=== PATIENT | male | born 1945 | race Caucasian/White ===

== ENCOUNTER → 2017-06-07 | Outpatient (CLI) | payer MEDICARE, OTHER ==
--- NOTE | 2017-06-07 13:46 | MR ---
EXAMINATION TYPE: MR shoulder LT wo con DATE OF EXAM: 06/07/2017 COMPARISON: Outside left shoulder x-ray from earlier today HISTORY: Pain in left shoulder for years. TECHNIQUE: Multiplanar, multisequence imaging of the left shoulder is performed without contrast. FINDINGS: Rotator Cuff: The supraspinatus and infraspinatus tendons are both intact to humeral head attachment. There is no evidence of suspicious partial or full-thickness retracted tear. Rotator cuff muscle bul k is preserved. Subscapularis tendon is felt intact. Acromioclavicular Joint: There is marked joint space loss and capsular hypertrophy with mild spurring . There is loss inferior fat plane at this level. Distal acromion morphology is unremarkable. Glenohumeral Joint: There is small glenohumeral joint effusion. Moderate joint space loss is seen. Labrum: Degenerative increased signal superior labrum is present. There is subchondral cystic change in adjacent superior glenoid. Biceps Tendon: The long head of biceps is in normal location within bicipital groove. Intra-articular portion is not well visualized Bone marrow signal: There is additional subchondral cystic change in the anterior and inferior osseou s glenoid. Mild subchondral cystic change superior posterior femoral head is present. Other: No additional significant abnormality is appreciated. IMPRESSION: 1. No suspicious rotator cuff tear is seen. 2. Moderate to advanced glenohumeral and acromioclavicular joint degenerative changes with suspected underlying impingement. Correlate clinically.
== END ==
LOC: RADMRIMAIN 12:30
PROVIDERS: ATTEND Orthopaedic Surgery
DX: M25.512 Pain in left shoulder (principal)

== ENCOUNTER → 2018-11-11 | Outpatient (CLI) | payer MEDICARE ==
--- NOTE | 2018-11-11 16:21 | XR ---
EXAMINATION TYPE: XR chest 2V DATE OF EXAM: 11/11/2018 COMPARISON: 07/20/2011 INDICATION: Cough TECHNIQUE: Frontal and lateral views of the chest are obtained. FINDINGS: The heart size is normal. The pulmonary vasculature is normal. A few punctate nodules may be within the right midlung. These were present previously and could be gr anuloma. No enlarging masses are evident.. IMPRESSION: 1. No acute pulmonary process.
== END | disposition home or self-care (01) ==
LOC: RADXRMAIN 15:04
PROVIDERS: ATTEND Internal Medicine Geriatric Medicine
DX: R05 Cough (principal)
CPT/HCPCS: 71046

== ENCOUNTER → 2019-11-23 | Outpatient (CLI) | payer MEDICARE ==
--- NOTE | 2019-11-23 12:01 | ECHOS ---
STRESS ECHOCARDIOGRAM INDICATIONS: Chest pain. MEDICATIONS: Crestor, aspirin, Xanax, omeprazole. BASELINE HEART RATE: 78 BASELINE BLOOD PRESSURE: 124/76 MAXIMUM HEART RATE: 141 MAXIMUM BLOOD PRESSURE: 183/69 85% MPHR: 122 100% MPHR: 144 METS: 8.3 MAXIMUM STAGE REACHED: 2 TOTAL EXERCISE TIME: 7:00 CLINICAL INFORMATION: Baseline rhythm is sinus mechanism, rate 78, normal axis and intervals. Normal echocardiogram. Baseline blood pressure 124/76 mmHg. Patient exercised on Claus protocol for 7 minutes, reaching peak rate of 141 beats per minute which is equal to 98% maximum predicted heart rate. Peak blood pressure 183/69 mmHg. Test was terminated due to fatigue. There was no chest pain. Electrocardiograph monitoring revealed occasional single PVCs. There was a [address]-segment depression at peak exercise that improved in recovery. FINDINGS: Baseline echocardiogram revealed normal wall motion. At peak exercise, there was normal wall motion augmentation with no hypokinesis or dyskinesis. CONCLUSION: 1. Good exercise tolerance with occasional PVCs and mildly positive electrocardiograph stress testing. 2. Normal stress echocardiogram with no evidence of stress-induced ischemia. MMODL / IJN: [id number] /
== END | disposition home or self-care (01) ==
LOC: RADNMMAIN 09:46
PROVIDERS: ATTEND Internal Medicine Geriatric Medicine
DX: R07.9 Chest pain, unspecified (principal)
CPT/HCPCS: 93351

== ENCOUNTER → 2020-12-06 | Outpatient (CLI) | payer MEDICARE ==
--- NOTE | 2020-12-07 08:47 | ECHOF ---
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 This was a technically adequate study. The left ventricular size is normal. There is borderline concentric left ventricular hypertrophy. Overall left ventricular systolic function is normal with, an EF between 55 - 60 %. The diastolic filling pattern is normal for the age of the patient 11.04. The right ventricle is mildly enlarged. LA is midly dilated 29-33ml/m2. The right atrial size is normal. Interatrial and interventricular septum intact. The aortic valve is trileaflet and appears structurally normal. There is no evidence of aortic regu rgitation. There is no evidence of aortic stenosis. There is trace to mild mitral regurgitation. Mild tricuspid regurgitation present. There is no evidence of pulmonary hypertension. The right v entricular systolic pressure, as measured by Doppler, is 35.32mmHg. Trace/mild (physiologic) pulmonic regurgitation. The aortic root size is normal. Normal inferior vena cava with normal inspiratory collapse consistent with estimated right atrial pre ssure of 5 mmHg. There is no pericardial effusion. CONCLUSIONS -------- 1. The left ventricular size is normal. 2. There is borderline concentric left ventricular hypertrophy. 3. Overall left ventricular systolic function is normal with, an EF between 55 - 60 %. 4. The diastolic filling pattern is normal for the age of the patient 11.04 5. The right ventricle is mildly enlarged. 6. LA is midly dilated 29-33ml/m2. 7. There is trace to mild mitral regurgitation. 8. Mild tricuspid regurgitation present. 9. Trace/mild (physiologic) pulmonic regurgitation. CHEF & OWNER: Kristal Rendon RDCS
== END | disposition home or self-care (01) ==
LOC: RADECHMAIN 14:46
PROVIDERS: ATTEND Internal Medicine Geriatric Medicine
DX: I51.7 Cardiomegaly (principal); I34.0 Nonrheumatic mitral (valve) insufficiency; I37.1 Nonrheumatic pulmonary valve insufficiency
CPT/HCPCS: 93306

== ENCOUNTER → 2021-01-04 | Outpatient (CLI) | payer MEDICARE ==
--- NOTE | 2021-01-04 15:19 | NM ---
EXAMINATION TYPE: NM bone scan whole body DATE OF EXAM: 01/04/2021 COMPARISON: NONE HISTORY: 75-year-old male M54.5 M54.6 M41.24 M47.814 ratio with back pain since October. History of left lower quadrant abdominal liposarcoma. TECHNIQUE: Delayed whole-body scanning was performed following the injection of 23 mCi Tc 99m MDP. I mages acquired 3.5 hours post injection. FINDINGS: Abnormal band of increased activity involving a midthoracic vertebral body as well as T12 vertebral b winnie. Faint band of increased activity involving the T10 vertebral body. Focal increased activity involving a lower right anterior rib end. No other abnormal activity seen. IMPRESSION: 1. Bandlike increased activity involving a mid thoracic vertebral body, T12 vertebral body, and likel y T10 as well. Findings suggest thoracic vertebral compression fractures. These may be posttraumatic or osteoporotic compressions. Given patient's history of sarcoma, correlate to exclude pathologic com pressions. 2. Focal increased activity involving a lower right anterior rib end. Query any injury in this region . Metastatic disease not excluded at this time.
== END | disposition home or self-care (01) ==
LOC: RADNMMAIN 10:24
PROVIDERS: ATTEND Physical Medicine & Rehabilitation
DX: M41.24 Other idiopathic scoliosis, thoracic region (principal); M47.814 Spondylosis without myelopathy or radiculopathy, thoracic region
CPT/HCPCS: 78306; A9503

== ENCOUNTER 2021-01-30 12:40 | Inpatient (IN) | payer MEDICARE ==
[2021-01-30] MEDS ORDERED: HYDROmorphone 1 MG/ML 1 ML SYRINGE IVP STA (13:28)
[2021-01-30] MEDS ORDERED: SODIUM CHLORIDE 0.9% 1,000 ML IV STA (13:28)
[2021-01-30 13:43] LABS: Basophils % (A) 0 %; Eosinophils % (A) 1 %; HCT 31.7 % (39.0-53.0); HGB 10.7 gm/dL (13.0-17.5); Lymphocytes # (A) 0.7 k/uL (1.0-4.8); Lymphocytes % (A) 19 %; MCH 33.8 pg (25.0-35.0); MCHC 33.7 g/dL (31.0-37.0); MCV 100.2 fL (80.0-100.0); Mean Platelet Volume 7.7; Monocytes # (A) 0.1 k/uL (0-1.0); Monocytes % (A) 4 %; Neutrophils # (A) 2.6 k/uL (1.3-7.7); Neutrophils % (A) 75 %; Platelet Count 225 k/uL (150-450); RBC 3.16 m/uL (4.30-5.90); RDW 13.3 % (11.5-15.5); WBC 3.4 k/uL (3.8-10.6)
[2021-01-30 14:05] LABS: Albumin 3.3 g/dL (3.5-5.0); Calcium 10.1 mg/dL (8.4-10.2); Total Bilirubin 0.5 mg/dL (0.2-1.3); Total Protein 9.6 g/dL (6.3-8.2)
[2021-01-30 14:15] LABS: Potassium 4.5 mmol/L (3.5-5.1)
[2021-01-30] MEDS ORDERED: NALOXONE 0.4 MG/ML 1 ML VIAL IV PRN (15:49)
--- NOTE | 2021-01-30 15:53 | ED ---
Recheck HPI - General Chief Complaint: Recheck/Abnormal Lab/Rx Stated Complaint: back pain Time Seen by Provider: 01/30/21 13:07 Source: patient, EMS, RN notes reviewed Mode of arrival: EMS - History of Present Illness Initial Comments: Patient is a 75-year-old male that presents to the emergency department complaining of intractable back pain. He notes she does follow-up with Dr. Jackson was given a metal back brace for multiple vertebral fractures. He notes he follow-up with Dr. Jackson who noted that he had several more vertebral fractures but unsure of etiology. Patient notes that his at home pain medications are not working. notes that they took him to [facility] and pain medication did not help, she was hoping that he would be admitted but they discharged him. Patient was otherwise well-appearing. He denied any chest pain first breath headache nausea vomiting diarrhea constipation fever fatigue chills. - Related Data Home Medications Medication Instructions Recorded Confirmed Rosuvastatin Calcium [Crestor] 5 mg PO HS 08/11/13 01/19/14 ALPRAZolam [Xanax] 0.5 mg PO BID PRN 01/19/14 01/19/14 Antiarthritic Combination No.2 900 mg PO DAILY 01/19/14 01/19/14 [Glucosamine-Chondroitin] Aspirin 81 mg PO DAILY 01/19/14 01/19/14 Multivitamin [Men's Multi-Vitamin] 1 each PO DAILY 01/19/14 01/19/14 Ranitidine HCl 150 mg PO DAILY 01/19/14 01/19/14 Vardenafil HCl [Levitra] 20 mg PO DIRECTED PRN 01/19/14 01/19/14 Previous Rx's Medication Instructions Recorded Hydrocodone/Acetaminophen [[place] 1 - 2 each PO Q4HR PRN #60 tab 01/20/14 5-325] Allergies Allergy/AdvReac Type Severity Reaction Status Date / Time No Known Allergies Allergy Verified 01/30/21 12:58 Review of Systems ROS Statement: Those systems with pertinent positive or pertinent negative responses have been documented in the HPI. ROS Other: All systems not noted in ROS Statement are negative. Past Medical History Past Medical History: Cancer, GERD/Reflux, Hyperlipidemia, Osteoarthritis (OA) Additional Past Medical History / Comment(s): hx. liposarcoma History of Any Multi-Drug Resistant Organisms: None Reported Additional Past Surgical History / Comment(s): cancerous tumor removed from left side of abdomen Past Anesthesia/Blood Transfusion Reactions: No Reported Reaction Past Psychological History: Anxiety Past Alcohol Use History: Occasional Past Drug Use History: None Reported General Exam General appearance: alert, in no apparent distress Head exam: Present: atraumatic, normocephalic, normal inspection Eye exam: Present: normal appearance, PERRL, EOMI. Absent: scleral icterus, conjunctival injection, periorbital swelling ENT exam: Present: normal exam, mucous membranes moist Neck exam: Present: normal inspection Respiratory exam: Present: normal lung sounds bilaterally. Absent: respiratory distress, wheezes, rales, rhonchi, stridor Cardiovascular Exam: Present: regular rate, normal rhythm, normal heart sounds. Absent: systolic murmur, diastolic murmur, rubs, gallop, clicks Extremities exam: Present: normal inspection, full ROM, normal capillary refill. Absent: tenderness, pedal edema, joint swelling, calf tenderness Back exam: Present: normal inspection, other (Back brace in place) Neurological exam: Present: alert, oriented X3, CN II-XII intact Psychiatric exam: Present: normal affect, normal mood Skin exam: Present: warm, dry, intact, normal color. Absent: rash Course Vital Signs 01/30/21 01/30/21 12:54 13:44 Temperature 98.4 F Pulse Rate 98 91 Respiratory 18 18 Rate Blood Pressure 107/74 145/81 O2 Sat by Pulse 96 94 L Oximetry Medical Decision Making - Medical Decision Making 75-year-old male with intractable back pain. Basic labs, 1 mg of Dilaudid ordered. Labs are unremarkable, Covid test negative for 1 more milligram of Dilaudid ordered. Case discussed with Dr. Goldsmith, patient will be admitted. Dr. Cortez was consulted and will accept the admit with pain management and Dr. Jackson on consult. - Lab Data Result diagrams: 01/30/21 13:33 01/30/21 13:33 Lab Results 01/30/21 01/30/21 01/30/21 Range/Units 13:33 13:33 14:52 WBC 3.4 L (3.8-10.6) k/uL RBC 3.16 L (4.30-5.90) m/uL Hgb 10.7 L (13.0-17.5) gm/dL Hct 31.7 L (39.0-53.0) % MCV 100.2 H (80.0-100.0) fL MCH 33.8 (25.0-35.0) pg MCHC 33.7 (31.0-37.0) g/dL RDW 13.3 (11.5-15.5) % Plt Count 225 (150-450) k/uL MPV 7.7 Neutrophils % 75 % Lymphocytes % 19 % Monocytes % 4 % Eosinophils % 1 % Basophils % 0 % Neutrophils # 2.6 (1.3-7.7) k/uL Lymphocytes # 0.7 L (1.0-4.8) k/uL Monocytes # 0.1 (0-1.0) k/uL Eosinophils # 0.0 (0-0.7) k/uL Basophils # 0.0 (0-0.2) k/uL Sodium 136 L (137-145) mmol/L Potassium 4.5 (3.5-5.1) mmol/L Chloride 103 (98-107) mmol/L Carbon Dioxide 25 (22-30) mmol/L Anion Gap 8 mmol/L BUN 26 H (9-20) mg/dL Creatinine 1.35 H (0.66-1.25) mg/dL Est GFR (CKD-EPI)AfAm 58 (>60 ml/min/1.73 sqM) Est GFR (CKD-EPI)NonAf 50 (>60 ml/min/1.73 sqM) Glucose 110 H (74-99) mg/dL Calcium 10.1 (8.4-10.2) mg/dL Total Bilirubin 0.5 (0.2-1.3) mg/dL AST 33 (17-59) U/L ALT 37 (4-49) U/L Alkaline Phosphatase 210 H (38-126) U/L Total Protein 9.6 H (6.3-8.2) g/dL Albumin 3.3 L (3.5-5.0) g/dL Coronavirus (PCR) Not Detected (Not Detectd) Disposition Clinical Impression: Intractable back pain Disposition: [facility] Condition: Stable Is patient prescribed a controlled substance at d/c from ED?: No Referrals: Jay Melendrez MD [Primary Care Provider] - 1-2 days Time of Disposition: 15:53
[2021-01-30] MEDS: SODIUM CHLORIDE 0.9% 1,000 ML IV SCH (16:51)
[2021-01-30] MEDS: HYDROmorphone 1 MG/ML 1 ML SYRINGE IVP PRN ×2 (16:51→22:27)
[2021-01-30] MEDS ORDERED: CYCLOBENZAPRINE 5 MG TAB PO PRN (23:23)
[2021-01-31] MEDS: SODIUM CHLORIDE 0.9% 1,000 ML IV SCH ×4 (03:06→20:31)
[2021-01-31] MEDS: HYDROmorphone 1 MG/ML 1 ML SYRINGE IVP PRN ×5 (03:15→20:30)
[2021-01-31] MEDS: HYDROcodone/APAP 5-325MG 1 EACH TAB PO PRN (04:22)
[2021-01-31] MEDS: ATORVASTATIN 10 MG TAB PO SCH (08:08)
[2021-01-31] MEDS ORDERED: DULoxetine HCL 30 MG CAPSULE.DR PO SCH (09:00)
--- NOTE | 2021-01-31 09:21 | P.CNOR ---
<Bruce Campbell - Last Filed: 01/31/21 09:18> History of Present Illness - [facility] Consult date: 01/31/21 Requesting physician: Manohar Chavarria Consult reason: fracture (Known multiple compression fracture deformities at T7, T11, T12, L1, and L2), low back pain, back pain (Thoracic back pain) History of present illness: Patient is a very pleasant 75-year-old male who is seen and examined at bedside for further evaluation regards to his thoracic and lumbar spines. He is well known to our service. He is been seen and evaluated in the outpatient setting. He underwent lumbar MRI imaging yesterday, 01/31/2021. He has been wearing his TLSO brace. Once he returned home he was unable to get out of the car. He was brought to the emergency department for further evaluation. He is admitted to medicine with us on consult. He is known have multiple compression fracture deformities at T7, T11, T12, L1, and L2. He states he has significant pain at his mid to lower thoracic spine and at the thoracolumbar junction. He has difficulty with mobility and ambulation due to his pain. He denies any lower extremity weakness or radiculopathy bilaterally. We did discuss the bedside his MRI was performed yesterday this imaging was not available for review yesterday. We will plan to review this at [facility] today. He did have the MRI performed of his lumbar spine. He did not have thoracic MRI imaging. Patient is known to have previous compression fracture deformity which she was told was T7. 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 His other medical diagnoses include hyperlipidemia and hearing loss. He recently had a body bone scan imaging taken at [facility] on 01/04/2021. Past Medical History Past Medical History: Cancer, GERD/Reflux, Hyperlipidemia, Osteoarthritis (OA) Additional Past Medical History / Comment(s): hx. liposarcoma. 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 History of Any Multi-Drug Resistant Organisms: None Reported Additional Past Surgical History / Comment(s): cancerous tumor removed from left side of abdomen Past Anesthesia/Blood Transfusion Reactions: No Reported Reaction Past Psychological History: No Psychological Hx Reported Smoking Status: Former smoker Past Alcohol Use History: Occasional Additional Past Alcohol Use History / Comment(s): Pt smoked for 1 year and quit a long time ago. Past Drug Use History: None Reported Medications and Allergies Home Medications Medication Instructions Recorded Confirmed Type Rosuvastatin Calcium [Crestor] 5 mg PO DIRECTED 08/11/13 01/30/21 History Cyclobenzaprine [Flexeril] 5 mg PO BID PRN 01/30/21 01/30/21 History DULoxetine HCL [Cymbalta] 30 mg PO DAILY 01/30/21 01/30/21 History Hydrocodone/Acetaminophen [[place] 1 tab PO Q4HR PRN 01/30/21 01/30/21 History 5-325] traMADol HCL [Ultram] 50 mg PO Q6H PRN 01/30/21 01/30/21 History Allergies Allergy/AdvReac Type Severity Reaction Status Date / Time No Known Allergies Allergy Verified 01/30/21 12:58 Physical Examination Physical exam: Patient is awake, alert, and oriented 3 Vital signs stable Good chest excursion with deep inspiration and expiration Patient is currently lying in bed with his TLSO brace intact Examination of thoracic and lumbar spine reveals skin is intact with no abrasions, lacerations, or bruises; no erythema, purulence or signs of infection TLSO brace is removed during physical examination Significant pain with palpation at the midline of the mid to lower thoracic spine No specific pain with palpation of the lower lumbar spine Dorsiflexion, plantarflexion, and extensor hallucis longus positive sustained bilaterally Lower extremity strength 5/5 bilaterally Patellar reflex 1+ bilaterally No lower extremity hyperreflexia bilaterally Straight leg test negative bilateral lower extremities Patient is able to lift legs off the bed independently No signs or symptoms of DVT; no calf pain No pain with internal and external rotation of the hips bilaterally Neurovascularly intact Results Pertinent studies: X-rays of the lumbosacral spine taken at [facility] on 01/24/2021: Compression fracture deformities of L1 and L2 with approximately 30% height loss; T12 compression fracture deformity with approximately 10% height loss; possible compression fracture T11; L4-5 degenerative disc disease Nuclear medicine whole-body bone scan taken at [facility] on 01/04/2021: Increased uptake at T7 and T12 - Labs Labs: Abnormal Lab Results - Last 24 Hours (Table) 01/30/21 01/30/21 Range/Units 13:33 13:33 WBC 3.4 L (3.8-10.6) k/uL RBC 3.16 L (4.30-5.90) m/uL Hgb 10.7 L (13.0-17.5) gm/dL Hct 31.7 L (39.0-53.0) % MCV 100.2 H (80.0-100.0) fL Lymphocytes # 0.7 L (1.0-4.8) k/uL Sodium 136 L (137-145) mmol/L BUN 26 H (9-20) mg/dL Creatinine 1.35 H (0.66-1.25) mg/dL Glucose 110 H (74-99) mg/dL Alkaline Phosphatase 210 H (38-126) U/L Total Protein 9.6 H (6.3-8.2) g/dL Albumin 3.3 L (3.5-5.0) g/dL H & H 01/30/21 Range/Units 13:33 Hgb 10.7 L (13.0-17.5) gm/dL Hct 31.7 L (39.0-53.0) % Result Diagrams: 01/30/21 13:33 01/30/21 13:33 Assessment and Plan Assessment: Assessment: Thoracic compression fracture deformities at T7, T11, and T12 Lumbar compression fracture deformities at L1 and L2 with approximately 30% height loss Severe thoracolumbar pain Difficulty with ambulation due to pain L4-5 degenerative disc disease History of liposarcoma Hyperlipidemia Hearing loss (1) T7 vertebral fracture Current Visit: Yes Status: Acute Code(s): S22.069A - UNSP FRACTURE OF T7-T8 VERTEBRA, INIT FOR CLOS FX SNOMED Code(s): 208820801 (2) T12 compression fracture Current Visit: Yes Status: Acute Code(s): S22.080A - WEDGE COMPRESSION FRACTURE OF T11-T12 VERTEBRA, INIT SNOMED Code(s): 151516402 (3) Closed T11 fracture Current Visit: Yes Status: Acute Code(s): S22.089A - UNSP FRACTURE OF T11- T12 VERTEBRA, INIT FOR CLOS FX SNOMED Code(s): 909892710 (4) L1 vertebral fracture Current Visit: Yes Status: Acute Code(s): S32.019A - UNSP FRACTURE OF FIRST LUMBAR VERTEBRA, INIT FOR CLOS FX SNOMED Code(s): 272885494 (5) L2 vertebral fracture Current Visit: Yes Status: Acute Code(s): S32.029A - UNSP FRACTURE OF SECOND LUMBAR VERTEBRA, INIT FOR CLOS FX SNOMED Code(s): 170796352 (6) Difficulty in walking Current Visit: Yes Status: Acute Code(s): R26.2 - DIFFICULTY IN WALKING, NOT ELSEWHERE CLASSIFIED SNOMED Code(s): 469707757 (7) Hyperlipidemia Current Visit: Yes Status: Acute Code(s): E78.5 - HYPERLIPIDEMIA, UNSPECIFIED SNOMED Code(s): 90363023 (8) Hearing loss Current Visit: Yes Status: Acute Code(s): H91.90 - UNSPECIFIED HEARING LOSS, UNSPECIFIED EAR SNOMED Code(s): 64256267 (9) Liposarcoma Current Visit: Yes Status: Acute Code(s): C49.9 - MALIGNANT NEOPLASM OF CONNECTIVE AND SOFT TISSUE, UNSP SNOMED Code(s): 549781481 (10) Degeneration of L4-L5 intervertebral disc Current Visit: Yes Status: Acute Code(s): M51.36 - OTHER INTERVERTEBRAL DISC DEGENERATION, LUMBAR REGION SNOMED Code(s): 85624219 (11) Thoracolumbar back pain Current Visit: Yes Status: Acute Code(s): M54.50 - LOW BACK PAIN, UNSPECIFIED; M54.6 - PAIN IN THORACIC SPINE SNOMED Code(s): 123834383 (12) Intractable back pain Current Visit: Yes Status: Acute Code(s): M54.9 - DORSALGIA, UNSPECIFIED SNOMED Code(s): 137044042 Plan: Plan: 1. Patient has been experiencing significant thoracolumbar pain most significant at the mid to lower thoracic spine and at the thoracolumbar junction. He was able to undergo lumbar MRI imaging yesterday but this imaging was not available for review yesterday afternoon. We will plan to review this imaging at [facility] today. During the patient's phys ical examination he does have significant pain with palpation at the mid thoracic spine. He is known have multiple compression fracture deformities at T7, T11, T12, L1, and L2. He did not have MRI imaging of his thoracic spine. We will plan to order MRI imaging of his thoracic spine for further evaluation. He currently has a TLSO brace intact. He should continue to keep this brace intact when sitting upright at greater than 45, during ambulation, while working with physical therapy, and during increase activities. Brace is not have to be worn while lying in bed. We did discuss patient should avoid excessive activities. We discussed we will plan to follow up with the patient for further evaluation discuss his thoracic MRI and lumbar MRI imaging following the completion of the thoracic MRI and reviewing of the lumbar MRI. Patient feels this is a good plan of care. He will continue BC exam by medicine for his other medical diagnoses. Time with Patient: Greater than 30 (Including obtaining history, physical examination, reviewing of imaging, and dictation.) <Frederick Jackson - Last Filed: 01/31/21 12:21> Physical Examination Osteopathic Statement: *. No significant issues noted on an osteopathic structural exam other than those noted in the History and Physical/Consult. Results - Labs Labs: Abnormal Lab Results - Last 24 Hours (Table) 01/30/21 01/30/21 Range/Units 13:33 13:33 WBC 3.4 L (3.8-10.6) k/uL RBC 3.16 L (4.30-5.90) m/uL Hgb 10.7 L (13.0-17.5) gm/dL Hct 31.7 L (39.0-53.0) % MCV 100.2 H (80.0-100.0) fL Lymphocytes # 0.7 L (1.0-4.8) k/uL Sodium 136 L (137-145) mmol/L BUN 26 H (9-20) mg/dL Creatinine 1.35 H (0.66-1.25) mg/dL Glucose 110 H (74-99) mg/dL Alkaline Phosphatase 210 H (38-126) U/L Total Protein 9.6 H (6.3-8.2) g/dL Albumin 3.3 L (3.5-5.0) g/dL H & H 01/30/21 Range/Units 13:33 Hgb 10.7 L (13.0-17.5) gm/dL Hct 31.7 L (39.0-53.0) % Result Diagrams: 01/30/21 13:33 01/30/21 13:33 Assessment and Plan Plan: The patient is seen and examined. I reviewed his history and the patient is kno wn to me as we saw him in the office last week for the first time. He is having worsening symptoms in his back. He says he has occasional shortness of breath when he tries to get around but is not sure if it is due to pain or his breathing. He has history of abdominal surgery due to removal of a abdominal tumor. He denies changes in his bowel bladder function. Denies any changes in his lower extremity function. Denies any neurologic loss in his lower extremities. He has significant worsening and has not been getting any better despite conservative treatment. He has been using his TLSO brace for over a month when he was initially prescribed. I saw him last week and he had developed new fractures at his thoracic lumbar spine despite minimal activity and brace use. I feel there may be other process beyond simple osteoporosis causing his fractures. His bony signal on his bone scan in 01/04/2021 did not show any evidence of metastatic process. It is possible that with multiple myeloma he can have cold spots and bone scan can be negative. With the abnormal signal at his thoracic or lumbar vertebrae I think that further workup is necessary to rule out the possibility of multiple myeloma versus other process. We will order some preliminary labs and have hematology oncology see him for further workup. With his history of abdominal cancer I think a chest abdomen and pelvis CT is worthwhile as well and we will order that to try to determine if there is a process involved. Patient had been scheduled by his primary care physician for a PET scan this , apparently he is unable to get this as he is in the hospital we will not do a PET scan while he is hospitalized. We will continue to try other workup to see if we can determine specific process for his worsening symptoms. He does have evidence of compression deformities at multiple levels in his thoracic and lumbar spine including T7 T10 T12 as well as in his lumbar spine and he should continue his brace use. We could consider kyphoplasty treatment for these but I would like to determine if there is a separate process contributing to these fractures as well. We will continue to follow him closely. I discussed this with him and his at bedside, answered their questions and they seem to understand.
[2021-01-31] MEDS: ERGOCALCIFEROL 1,250 MCG (50,000 IU) CAPSULE PO SCH (11:25)
[2021-01-31] MEDS: methocarbamoL 750 MG TAB PO SCH ×3 (11:25→20:30)
[2021-01-31] MEDS: IOPAMIDOL CONTRAST (ORAL USE) VIAL PO PRN ×2 (12:37→13:29)
--- NOTE | 2021-01-31 13:27 | P.HPIM ---
History of Present Illness H&P Date: 01/31/21 HISTORY OF PRESENT ILLNESS This is a 75-year-old male patient of Dr. 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 Patient states that he is seen by Dr. Jackson and underwent MRI yesterday. He was heading home but was in such severe pain he decided to come into the emergency center for further evaluation. He states Dr. Martin has been the one managing his pain and his home pain medications have not been working. He does get some improvement of pain when he lays down. The pain is across his lumbar area with spasms. He denies having any numbness or tingling. He usually walks with a walker but this is been very difficult over the past 2 weeks due to loss of strength and increasing pain. Patient has a TLSO brace which he is wearing. A consult has been placed for Dr. Espitia by orthopedic spine. Consult is also in place with pain management. Patient was scheduled for PET scan on by Dr. Melendrez. Lumbar MRI imaging taken at [facility] on 01/30/2021: Inhomogenous bone marrow signal intensity of the regional bony structures which may be related to diffuse osteopenia and fibrofatty changes of aging but if concern for more aggressive process correlate with a whole-body nuclear bone scan. If concern for multiple myeloma correlate with serum CBC and serum protein electrophoresis could be made; multiple compression fracture deformities at T11, T12, L1, and L2 that appear chronic in nature with no bone marrow edema to suggest acute component; mild dextroscoliosis at the thoracolumbar junction; mild levoscoliosis at L3-4; L1-2, L2-3, and L3-4 facet hypertrophy; L4-5 disc osteophyte complex with mild to moderate left neural foraminal narrowing with abutment of the exiting L4 nerve root; L5-S1 discosteophyte complex extending into the right neural foramina with some abutment to the exiting right L5 nerve root; distended colon; enlarged prostate gland. X-rays of the lumbosacral spine taken at [facility] on 01/24/2021: Compression fracture deformities of L1 and L2 with approximately 30% height loss; T12 compression fracture deformity with approximately 10% height loss; possible compression fracture T11; L4-5 degenerative disc disease Nuclear medicine whole-body bone scan taken at [facility] on 01/04/2021: Increased uptake at T7 and T12 REVIEW OF SYSTEMS Constitutional: No fever, no chills, no night sweats. No weight change. No weakness, fatigue or lethargy. No daytime sleepiness. EENT: No headache. No blurred vision or double vision, no loss of vision. No loss of Hearing, no ringing in the ears, no dizziness. No nasal drainage or congestion. No epistaxis. No sore throat. Lungs: No shortness of breath, cough, no sputum production. No wheezing. Cardiovascular: No chest pain, no lower extremity edema. No palpitations. No paroxysmal nocturnal dyspnea. No orthopnea. No lightheadedness or dizziness. No syncopal episodes. Abdominal: No abdominal pain. No nausea, vomiting. No diarrhea. No constipation. No bloody or tarry stools. No loss of appetite. Genitourinary: No dysuria, increased frequency, urgency. No urinary retention. Musculoskeletal: No myalgias. No muscle weakness, no gait dysfunction, no frequent falls. Reports back pain. No neck pain. Integumentary: No wounds, no lesions. No rash or pruritus. No unusual bruising. No change in hair or nails. Neurologic: No aphasia. No facial droop. No change in mentation. No head injury. No headache. No paralysis. No paresthesia. Psychiatric: No depression. No anxiety. No mood swings. Endocrine: No abnormal blood sugars. No weight change. No excessive sweating or thirst. No cold intolerance. SOCIAL HISTORY Patient smokes cigarettes for only one year. He drinks alcohol occasionally. He lives at home with his . FAMILY HISTORY Mother at age 96 from old age. Father at age 86 from old age. Patient has 2 sisters with no major medical problems. Patient has 1 brother that from Covid. Patient has 2 brothers with no major medical problems. Patient has 2 sons and 1 daughter with no major medical problems. PHYSICAL EXAMINATION Gen: This is a 75-year-old male patient sitting on the edge of a chair. He appears to be in no acute distress. He is complaining of back in the thorax and lumbar pain. TLSO brace in place. HEENT: Head is atraumatic, normocephalic. Pupils equal, round. Sclerae is anicteric. NECK: Supple. No JVD. No lymphadenopathy. No thyromegaly. LUNGS: Clear to auscultation. No wheezes or rhonchi. No intercostal retractions. HEART: Regular rate and rhythm. No murmur. ABDOMEN: Soft. Bowel sounds are present. No masses. No tenderness. EXTREMITIES: No pedal edema. No calf tenderness. NEUROLOGICAL: Patient is awake, alert and oriented x3. Cranial nerves 2 through 12 are grossly intact. ASSESSMENT AND PLAN 1. Pain in the thoracic and lumbar spine regions, multiple compression fracture deformities T 11, T12, L1, L2 that her chronic, degenerative changes. Consult with orthopedic spine appreciated, consult is also in place with pain management. Continue patient on Cymbalta 30 mg twice daily, add [place] 7.5/325 one every 6 hours as needed, Dilaudid 1 mg IV push every 3 hours, Robaxin 750 mg 3 times daily, tramadol. R eye of the thoracic spine has been ordered. 2. Multiple compression fractures possible pathologic. Patient was scheduled outpatient for PET scan. Consult with oncology. 3. Concern for multiple myeloma. Consult with oncology. 4. Hyperlipidemia. Continue Lipitor 10 mg daily. 5. Intestinal prophylaxis. Protonix. 6. DVT prophylaxis. Heparin subcu. 7. COVID-19 testing negative. Patient has been hospitalized during a pandemic. Patient will be admitted to the hospital for a minimum of 2 night stay. DISCHARGE PLAN Subacute rehab at [facility]. Impression and plan of care have been directed as dictated by the signing phys fred. Nataliia Feldman nurse practitioner acting as scribe for signing physician. Past Medical History Past Medical History: Cancer, GERD/Reflux, Hyperlipidemia, Osteoarthritis (OA) Additional Past Medical History / Comment(s): hx. liposarcoma. 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 History of Any Multi-Drug Resistant Organisms: None Reported Additional Past Surgical History / Comment(s): cancerous tumor removed from left side of abdomen Past Anesthesia/Blood Transfusion Reactions: No Reported Reaction Past Psychological History: No Psychological Hx Reported Smoking Status: Former smoker Past Alcohol Use History: Occasional Additional Past Alcohol Use History / Comment(s): Pt smoked for 1 year and quit a long time ago. Past Drug Use History: None Reported Medications and Allergies Home Medications Medication Instructions Recorded Confirmed Type Rosuvastatin Calcium [Crestor] 5 mg PO DIRECTED 08/11/13 01/30/21 History Cyclobenzaprine [Flexeril] 5 mg PO BID PRN 01/30/21 01/30/21 History DULoxetine HCL [Cymbalta] 30 mg PO DAILY 01/30/21 01/30/21 History Hydrocodone/Acetaminophen [[place] 1 tab PO Q4HR PRN 01/30/21 01/30/21 History 5-325] traMADol HCL [Ultram] 50 mg PO Q6H PRN 01/30/21 01/30/21 History Allergies Allergy/AdvReac Type Severity Reaction Status Date / Time No Known Allergies Allergy Verified 01/30/21 12:58 Physical Exam Vitals: Vital Signs Temp Pulse Pulse Resp BP BP Pulse Ox 01/31/21 02:00 98.2 F 92 17 154/83 94 L 01/30/21 20:00 97.9 F 92 18 143/82 97 01/30/21 18:51 98.4 F 90 18 140/92 96 01/30/21 16:41 90 18 140/92 96 01/30/21 15:15 78 18 121/82 96 01/30/21 14:00 87 18 107/74 94 L 01/30/21 13:44 91 18 145/81 94 L 01/30/21 12:54 98.4 F 98 18 107/74 96 Intake and Output 01/30/21 01/31/21 01/31/21 22:59 06:59 14:59 Intake Total 300 400 Output Total 300 Balance 0 400 Intake: Oral 300 400 Output: Urine 300 Other: Voiding Method Urinal Urinal # Voids 2 Weight 81.647 kg Results CBC & Chem 7: 01/30/21 13:33 01/30/21 13:33 Labs: Abnormal Lab Results - Last 24 Hours (Table) 01/30/21 01/30/21 Range/Units 13:33 13:33 WBC 3.4 L (3.8-10.6) k/uL RBC 3.16 L (4.30-5.90) m/uL Hgb 10.7 L (13.0-17.5) gm/dL Hct 31.7 L (39.0-53.0) % MCV 100.2 H (80.0-100.0) fL Lymphocytes # 0.7 L (1.0-4.8) k/uL Sodium 136 L (137-145) mmol/L BUN 26 H (9-20) mg/dL Creatinine 1.35 H (0.66-1.25) mg/dL Glucose 110 H (74-99) mg/dL Alkaline Phosphatase 210 H (38-126) U/L Total Protein 9.6 H (6.3-8.2) g/dL Albumin 3.3 L (3.5-5.0) g/dL Thrombosis Risk Factor Assmnt - Choose All That Apply Each Factor Represents 1 point: Obesity (BMI >25) Each Risk Factor Represents 3 Points: Age 75 years or older Thrombosis Risk Factor Assessment Total Risk Factor Score: 4 Thrombosis Risk Factor Assessment Level: Moderate Risk
--- NOTE | 2021-01-31 15:10 | CT ---
EXAMINATION TYPE: CT ChestAbdPelvis wo con DATE OF EXAM: 01/31/2021 COMPARISON: Whole body bone scan January 04, 2021 HISTORY: Intractable whole body pain including back pain. CT DLP: 1165 mGycm. Automated Exposure Control for Dose Reduction was Utilized. TECHNIQUE: CT scan of the thorax, abdomen and pelvis is performed with oral but without IV contrast. FINDINGS: LUNGS: Moderate posterior basilar scarring and/or atelectasis. No pleural effusion or pneumothorax se en. MEDIASTINUM: There are no greater than 1 cm hilar or mediastinal lymph nodes. No cardiomegaly or pe ricardial effusion is seen. Mild to moderate coronary artery calcification. OTHER: Left slightly greater than right subareolar gynecomastia. LIVER/GB: No significant abnormality is appreciated. PANCREAS: No significant abnormality is seen. SPLEEN: No significant abnormality is seen. ADRENALS: No significant abnormality is seen. KIDNEYS: No significant abnormality is seen. BOWEL: Oral contrast reaches level of the right colon nearly up to hepatic flexure. No suspicious sma ll or large bowel dilatation is seen. Rqhq-qo-mimsserz diffuse colonic fecal prominence. Sigmoid colo joan diverticula in the left pelvis. No CT evidence for acute diverticulitis. GENITAL ORGANS: Enlarged prostate consistent with BPH. Adjacent scattered pelvic phleboliths. LYMPH NODES: No greater than 1cm abdominal or pelvic lymph nodes are appreciated. OSSEOUS STRUCTURES: Osseous structures are demineralized ynwmiwvz-ce-aiqmeo disc space narrowing with endplate sclerosis level L4-L5 level. Mild height loss involving L2 vertebra with sclerosis, no line ar lucency. Moderate height loss with sclerosis involving the T10 vertebra greatest along the inferio r endplate. Mild to moderate height loss with sclerosis involving the T7 vertebra, most prominent ant erior wedging at this level. Cannot exclude linear lucency through the T12 vertebra sagittal image 62 for reference. Corresponding abnormality of the midthoracic vertebra on bone scan are clearly seen o n this CT study. Slight posterior retropulsion along the posterior-superior T12 and L1 vertebra minim ally efface the anterior thecal sac sagittal image 64 for reference and mid T10 vertebra sagittal jose ge 63. OTHER: No significant additional abnormality is seen. IMPRESSION: 1. Demineralization is present making evaluation suboptimal. Multiple compression type fractures fav or predominantly chronic etiology, subacute or acute component at T12 level suspected additional invo lvement in the roughly T7 vertebra on bone scan are not clearly seen on CT. Minimal posterior retropu lsion involving posterior superior aspect of the T12 and L1 vertebra along with the mid aspect of the T10 vertebra. 2. Moderate colonic fecal stasis. No bowel obstruction.
[2021-01-31] MEDS: HYDROcodone/APAP 7.5-325MG 1 EACH TAB PO PRN (17:39)
[2021-01-31] MEDS ORDERED: SENNOSIDES 8.6 MG TAB PO STA (17:52)
[2021-01-31] MEDS: DULoxetine HCL 30 MG CAPSULE.DR PO SCH (20:30)
[2021-01-31] MEDS: HEPARIN SODIUM,PORCINE/PF 5,000 UNIT/0.5 ML SYRINGE SQ SCH (20:30)
[2021-01-31 21:09] LABS: Protein, Total 8.1 g/dL (6.2-8.2)
[2021-02-01] MEDS: HYDROmorphone 1 MG/ML 1 ML SYRINGE IVP PRN ×2 (01:47→10:54)
[2021-02-01] MEDS: SODIUM CHLORIDE 0.9% 1,000 ML IV SCH ×3 (07:35→20:33)
[2021-02-01] MEDS: PANTOPRAZOLE 40 MG TABLET PO SCH (07:36)
[2021-02-01] MEDS: methocarbamoL 750 MG TAB PO SCH ×3 (07:36→20:34)
[2021-02-01] MEDS: polyethylene glycoL 3350 17 GM POWD.PACK PO SCH (07:36)
[2021-02-01] MEDS: ATORVASTATIN 10 MG TAB PO SCH (07:37)
[2021-02-01] MEDS: DULoxetine HCL 30 MG CAPSULE.DR PO SCH ×2 (07:37→20:34)
[2021-02-01] MEDS: HEPARIN SODIUM,PORCINE/PF 5,000 UNIT/0.5 ML SYRINGE SQ SCH ×2 (07:37→20:35)
--- NOTE | 2021-02-01 07:50 | P.PAINCN ---
History of Present Illness - Reason for Consult Consult date: 02/01/21 - History of Present Illness This is 75 years old male, tonic history of low back pain is admitted to [facility] secondary to intractable back pain, patient had chronic back pain problem , and he is diagnosed with depression fractures thoracic and lumbar spine, patient reported that intensity of the pain increased recently, patient not able to ambulate secondary to intensity of the pain, patient currently on pain medication [place] 7.5/325 every 4 hours, Dilaudid 1 mg IV every 3 hours, Robaxin 750 mg 3 times a day, Ultram 50 mg every 6 hours, and Cymbalta 30 mg twice a day, patient reported that the current medication control his pain at rest but he had severe pain ,when he try to change position or ambulate, he denies tingling or numbness sensation in the lower extremity, he feels some weakness in his lower extremity, reported that most of the pain is in the mid thoracic and lower thoracic area and the lumbar area, MRI of the thoracic spine showed the possibility of multiple myeloma, and consultation for oncology was placed Past Medical History Past Medical History: Cancer, GERD/Reflux, Hyperlipidemia, Osteoarthritis (OA) Additional Past Medical History / Comment(s): hx. liposarcoma. 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 History of Any Multi-Drug Resistant Organisms: None Reported Additional Past Surgical History / Comment(s): cancerous tumor removed from left side of abdomen Past Anesthesia/Blood Transfusion Reactions: No Reported Reaction Past Psychological History: No Psychological Hx Reported Smoking Status: Former smoker Past Alcohol Use History: Occasional Additional Past Alcohol Use History / Comment(s): Pt smoked for 1 year and quit a long time ago. Past Drug Use History: None Reported Medications and Allergies Home Medications Medication Instructions Recorded Confirmed Type Rosuvastatin Calcium [Crestor] 5 mg PO DIRECTED 08/11/13 01/30/21 History Cyclobenzaprine [Flexeril] 5 mg PO BID PRN 01/30/21 01/30/21 History DULoxetine HCL [Cymbalta] 30 mg PO DAILY 01/30/21 01/30/21 History Hydrocodone/Acetaminophen [[place] 1 tab PO Q4HR PRN 01/30/21 01/30/21 History 5-325] traMADol HCL [Ultram] 50 mg PO Q6H PRN 01/30/21 01/30/21 History Allergies Allergy/AdvReac Type Severity Reaction Status Date / Time No Known Allergies Allergy Verified 01/30/21 12:58 Physical Exam Vitals: Vital Signs Temp Pulse Resp BP Pulse Ox 02/01/21 01:14 98.8 F 94 14 163/82 94 L 01/31/21 20:00 89 14 01/31/21 19:36 98.0 F 89 14 162/70 95 01/31/21 15:00 97.5 F L 94 16 172/84 97 Intake and Output 01/31/21 02/01/21 02/01/21 22:59 06:59 14:59 Other: Voiding Method Urinal # Voids 1 2 # Bowel Movements 1 Physical Examinations : -Constitutiona : Cooperative , not in acute distress . -HEENT : nech : supple , no Lymphadenopathy , normal thyroid size . : eyes : no ptosis , no icterus, no photophobia . - neurologic : Cranial nerve II to XII intact , no focal neurological deffecit . -psychatric : alert , oriented X 3 , appropriate affect , intact judgment and insight . -Lymphatic : no Lymphadenopathy . - musculoskeltal : Thoracic Spine . Tenderness in the thoracic paraspinal muscles mid and lower area From T7 to T12 Lumber spine moter stegnth lower extremities ,thigh and legs 4/5 Right side , 5/5 Left side deep tendon reflexes : normal Knee Jerk , normal ankle Jerk lumber facet Loading Test =positive Right , positive Left Range of motion of the lumbar spine Flexion 30 degrees, extension 10 degrees strait leg raising test = positive at 45 degree Fabere test= positive Right , and positive LT . tenderness over the Sacroiliac joint on the Right , and Left sides Results CBC & Chem 7: 01/30/21 13:33 01/30/21 13:33 Labs: Abnormal Lab Results - Last 24 Hours (Table) 01/31/21 Range/Units 12:31 D-Dimer 12.64 H (<0.60) mg/L FEU Comments: MRI of the thoracic spine report pending Eye of the lumbar spine Assessment and Plan Plan: Assessment and plan=1-compression fractures thoracic and lumbar spine. intractable back pain, she reported that his pain well controlled at rest with current medication. Pain become unbearable with movement Patient is not candidate for interventional painmanagement Could benefit from thoracolumbar support braces. NSAID is containdicated secondary to borderline kidney function. he could benefit from kyphoplasty which will be determined by orthopedic spine surgeon Dr. Jackson. He could benefit from radiation therapy (if indicated ) as determined by oncology service, if patient had multiple myeloma Time with Patient: Greater than 30 PQRS Measure Charge Sheet - Pain Location Back Non-Pharmacological Interventions: Darkened Room, Distraction, Emotional/Spiritual Support, Environmental Control, Position/Reposition, Reduce Environmental Stimuli, Relaxation Technique, Splinting Pharmacological Interventions: Discuss Pain Med Options Pain Comment: SEE MAR PQRS Narrative: Smoking Status Never smoker Do You Want the Pneumonia No Vaccine AT THIS TIME? Blood Pressure [Right Arm] 163/82 Blood Pressure [Left Arm] 154/83 Blood Pressure 140/92 Pain Intensity [Back] 5 Pain Intensity 7 Pain Scale Used Numeric (1 - 10) Scale Used Numeric (1 - 10) Home Medications: Ambulatory Orders Rosuvastatin Calcium [Crestor] 5 mg PO DIRECTED 08/11/13 Cyclobenzaprine [Flexeril] 5 mg PO BID PRN 01/30/21 DULoxetine HCL [Cymbalta] 30 mg PO DAILY 01/30/21 Hydrocodone/Acetaminophen [[place] 5-325] 1 tab PO Q4HR PRN 01/30/21 traMADol HCL [Ultram] 50 mg PO Q6H PRN 01/30/21
--- NOTE | 2021-02-01 09:09 | MR ---
MR thoracic spine with and without contrast HISTORY: Compression fractures Multiplanar multisequence and postcontrast images obtained through the thoracic spine following 7.5 c c Gadavist IV. Correlation to CT scan to 01/31/2021 There is a spinal curvature. Thoracic cord signal is maintained. No significant spinal stenosis or fo raminal encroachment is evident. T10 shows loss of height of approximately 50%, there is retropulsion causing only mild spinal stenosi s. No disc herniation. There is anterior wedging at T7 is noted on CT without significant retropulsion, no disc herniation. Loss of height at T12 superior endplate centrally shows some associated high signal on T2-weighted se quences, intermediate signal on T1 suggesting subacute endplate compression deformity, there is likel y minimal retropulsion. No evident spinal stenosis. L1 also shows increased signal on T2, intermediate signal on T1 with also some increased signal T1 lazar ggesting possible underlying hemangioma and subacute superior endplate fracture, superior endplate fr acture of L2 seen on CT is only partially visualized. No evident disc herniation. Facet arthropathy changes are present at multiple level in the lower lumbar spine. Probable hemangiom a present within the T8 vertebral body, increased signal on T1 and T2 sequences is noted as well as a t the T11 vertebral body. There is some enhancement following contrast administration within the T12 and L1 vertebral bodies wi thout soft tissue component. 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 F indings as noted on prior CT, retropulsion is noted at T10 with only mild spinal stenosis..
[2021-02-01] MEDS: HYDROcodone/APAP 7.5-325MG 1 EACH TAB PO PRN ×2 (09:15→17:15)
--- NOTE | 2021-02-01 09:53 | P.PN ---
Progress Note - Text Progress Note Date: 02/01/21 The patient is seen and examined at bedside. I saw him earlier this morning and then again with his present at bedside. He continues to have severe pain in his mid back particularly with any sort of mobilization. He denies any changes in his lower extremity. Denies any neurologic loss or change in his lower extremity. He was able have a bowel movement today. He denies shortness of breath. He still unable to move out of bed or sit up on his own due to his intense back pain with motion. He has had significant imaging over the past couple of days which show some signal change at T10 T12 L1 and L2 to suggest subacute compression deformities. It seems that his symptoms stem from these compression deformities. There are some changes at other vertebral bodies but these fractures at T 10 T12-L1 and L2. The most recent fractures and the primary source of his symptoms. He has t ried conservative treatment and bracing without any relief. His further workup has not shown other process thus far. He is neurologically intact. The patient has multiple subacute compression fractures causing his symptoms despite conservative treatment. He is not having neurologic loss. He has been having further compression deformities particularly at L1 and L2 and a change since December compared to imaging now compression deformities despite conservative treatment and brace use. I think the patient can have benefit with kyphoplasty's at each of the subacute fractures, namely T10 T12 L1 and L2. The new thoracic MRI report shows signal change within these vertebrae without cord compression. I think that kyphoplasty can be suitable for each of these levels. I do not think that he would do well with structural hardware and reconstruction, and he is failing conservative care and bracing. I discussed the nature of surgery at length with him and his . I discussed the risk of bleeding risk and infection risk and need for further surgery risk of decreased or loss of motion loss of function, structural failure extravasation of the cement as well as the fact that surgery may not alleviate his symptoms was explained. The patient elects to proceed with surgical intervention and we will try to proceed with surgery today for biopsy and kyphoplasty at T 10 T12-L1 and L2.
--- NOTE | 2021-02-01 10:28 | P.CONS ---
History of Present Illness - Reason for Consult Consult date: 02/01/21 abnormal marrow signaling Requesting physician: Bruce Campbell - Chief Complaint intractable back pain - History of Present Illness Mr. Jaimes is a very pleasant 75-year-old male we have been asked to see regarding abnormal findings on MRI of the spine. Patient relays a unremarkable medical history and good performance status up until October/2020. Patient began having back pain. He was evaluated by Orthopedics and has been treated for compression fractures of the spine. Back pain continued to progress and became severe with no medications or positions making him comfortable. CT of the chest abdomen and pelvis reports demineralization of the vertebra at mul tiple levels with compression fractures. He is admitted and being seen by Analytical Statistician, Orthopedic Spine Surgeon is planning kyphoplasty and bone biopsy today. Patient relays a history of left abdominal liposarcoma in 2011, treated with surgery only. Denies any vitamin deficiencies, vitamin D deficiency, low testosterone levels. He had colonoscopy about 6 months ago, had his annual physical with Dr. Melendrez in November and does not report any abnormal findings. Review of Systems 10 point review of systems is negative except as stated in HPI Past Medical History Past Medical History: Cancer, GERD/Reflux, Hyperlipidemia, Osteoarthritis (OA) Additional Past Medical History / Comment(s): hx. liposarcoma. 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 History of Any Multi-Drug Resistant Organisms: None Reported Additional Past Surgical History / Comment(s): cancerous tumor removed from left side of abdomen Past Anesthesia/Blood Transfusion Reactions: No Reported Reaction Past Psychological History: No Psychological Hx Reported Smoking Status: Former smoker Past Alcohol Use History: Occasional Additional Past Alcohol Use History / Comment(s): Pt smoked for 1 year and quit a long time ago. Past Drug Use History: None Reported Medications and Allergies Home Medications Medication Instructions Recorded Confirmed Type Rosuvastatin Calcium [Crestor] 5 mg PO DIRECTED 08/11/13 01/30/21 History Cyclobenzaprine [Flexeril] 5 mg PO BID PRN 01/30/21 01/30/21 History DULoxetine HCL [Cymbalta] 30 mg PO DAILY 01/30/21 01/30/21 History Hydrocodone/Acetaminophen [[place] 1 tab PO Q4HR PRN 01/30/21 01/30/21 History 5-325] traMADol HCL [Ultram] 50 mg PO Q6H PRN 01/30/21 01/30/21 History Allergies Allergy/AdvReac Type Severity Reaction Status Date / Time No Known Allergies Allergy Verified 01/30/21 12:58 Physical Exam Vitals: Vital Signs Temp Pulse Resp BP Pulse Ox 02/01/21 07:00 97.6 F 89 16 179/86 94 L 02/01/21 01:14 98.8 F 94 14 163/82 94 L 01/31/21 20:00 89 14 01/31/21 19:36 98.0 F 89 14 162/70 95 01/31/21 15:00 97.5 F L 94 16 172/84 97 Intake and Output 01/31/21 02/01/21 02/01/21 22:59 06:59 14:59 Output Total 240 Balance -240 Output: Urine 240 Other: Voiding Method Urinal # Voids 1 2 2 # Bowel Movements 1 - Constitutional General appearance: average body habitus, cooperative, no acute distress - EENT Eyes: anicteric sclerae, EOMI ENT: hearing grossly normal, normal oropharynx - Neck Neck: no lymphadenopathy - Respiratory Respiratory: bilateral: CTA - Cardiovascular Rhythm: regular Heart sounds: normal: S1, S2 Abnormal Heart Sounds: no systolic murmur, no diastolic murmur, no rub, no S3 Gallop, no S4 Gallop, no click, no other leg Peripheral Edema: bilateral: None - Gastrointestinal General gastrointestinal: no absent bowel sounds, no decreased bowel sounds, no distended, no hepatomegaly, no hyperactive bowel sounds, normal bowel sounds, no organomegaly, no rigid, no scaphoid, no soft, no splenomegaly, no tenderness, no umbilical hernia, no ventral hernia - Integumentary Integumentary: normal - Neurologic Neurologic: CNII-XII intact - Musculoskeletal Musculoskeletal: strength equal bilaterally - Psychiatric Psychiatric: A&O x's 3, appropriate affect, intact judgment & insight Results CBC & Chem 7: 01/30/21 13:33 01/30/21 13:33 Labs: Abnormal Lab Results - Last 24 Hours (Table) 01/31/21 Range/Units 12:31 D-Dimer 12.64 H (<0.60) mg/L FEU Comments: Spine MRI reports reviewed CT scan - abdomen: report reviewed CT scan - chest: report reviewed CT scan - pelvis: report reviewed Assessment and Plan (1) Intractable back pain Narrative/Plan: Pain Management and Orthopedic Spine Surgeon following and treating patient. Current Visit: Yes Status: Acute Priority: High Code(s): M54.9 - DORSALGIA, UNSPECIFIED SNOMED Code(s): 557075537 Plan: Abnormal bone signaling. On chart review calcium high normal at 10.1, mild macrocytic anemia with a hemoglobin of 10.7, MCV of 100.2. Slightly elevated at 1.35. Multiple myeloma workup ordered. Nothing acutely is needed as patient's labs, though not normal, are adequate. Patient states that on his discussion with Orthopedic Surgeon there was mention of possibly obtaining a bone biopsy during kyphoplasty, agree with Surgeon's plan. Doctor attests: I performed a history and physical examination of this patient, developed impression and plan of care. Discussed with dictator. I agree with dictators note, documented as a scribe.
--- NOTE | 2021-02-01 11:50 | P.PN ---
Subjective Progress Note Date: 02/01/21 HISTORY OF PRESENT ILLNESS This is a 75-year-old male patient of Dr. 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 Patient states that he is seen by Dr. Jackson and underwent MRI yesterday. He was heading home but was in such severe pain he decided to come into the emergency center for further evaluation. He states Dr. Martin has been the one managing his pain and his home pain medications have not been working. He does get some improvement of pain when he lays down. The pain is across his lumbar area with spasms. He denies having any numbness or tingling. He usually walks with a walker but this is been very difficult over the past 2 weeks due to loss of strength and increasing pain. Patient has a TLSO brace which he is wearing. A consult has been placed for Dr. Espitia by orthopedic spine. Consult is also in place with pain management. Patient was scheduled for PET scan on by Dr. Melendrez. Lumbar MRI imaging taken at [facility] on 01/30/2021: Inhomogenous bone marrow signal intensity of the regional bony structures which may be related to diffuse osteopenia and fibrofatty changes of aging but if con cern for more aggressive process correlate with a whole-body nuclear bone scan. If concern for multiple myeloma correlate with serum CBC and serum protein electrophoresis could be made; multiple compression fracture deformities at T11, T12, L1, and L2 that appear chronic in nature with no bone marrow edema to suggest acute component; mild dextroscoliosis at the thoracolumbar junction; mild levoscoliosis at L3-4; L1-2, L2-3, and L3-4 facet hypertrophy; L4-5 disc osteophyte complex with mild to moderate left neural foraminal narrowing with abutment of the exiting L4 nerve root; L5-S1 discosteophyte complex extending into the right neural foramina with some abutment to the exiting right L5 nerve root; distended colon; enlarged prostate gland. X-rays of the lumbosacral spine taken at [facility] on 01/24/2021: Compression fracture deformities of L1 and L2 with approximately 30% height loss; T12 compression fracture deformity with approximately 10% height loss; possible compression fracture T11; L4-5 degenerative disc disease Nuclear medicine whole-body bone scan taken at [facility] on 01/04/2021: Increased uptake at T7 and T12 01/22/22: Patient is having surgery, for kyphoplasty, for disc involving T10 and T12 L1 L2, by Dr. Jackson. He has no history of CAD CHF CVA, or CK D stage III. Patient is doing well, had never complained of post anesthesia problems in the past. is at bedside, has informed me that she patient needs subacute care, as she cannot take her off [facility] home, the just had right knee replacement January this year. Phosphorous, anticipate discharge. Kyphoplasty in the next 2448 hrs. once cleared by orthopedics. EKG was reviewed, normal sinus rhythm without any QT prolongation, vitals are stable, checked for INR, cleared for surgery today, class II anesthesia risk. Revised cardiac risk index of 0. Constitutional: No fever, no chills, no night sweats. No weight change. No weakness, fatigue or lethargy. No daytime sleepiness. EENT: No headache. No blurred vision or double vision, no loss of vision. No loss of Hearing, no ringing in the ears, no dizziness. No nasal drainage or congestion. No epistaxis. No sore throat. Lungs: No shortness of breath, cough, no sputum production. No wheezing. Cardiovascular: No chest pain, no lower extremity edema. No palpitations. No paroxysmal nocturnal dyspnea. No orthopnea. No lightheadedness or dizziness. No syncopal episodes. Abdominal: No abdominal pain. No nausea, vomiting. No diarrhea. No constipation. No bloody or tarry stools. No loss of appetite. Genitourinary: No dysuria, increased frequency, urgency. No urinary retention. Musculoskeletal: No myalgias. No muscle weakness, no gait dysfunction, no frequent falls. Reports back pain. No neck pain. Integumentary: No wounds, no lesions. No rash or pruritus. No unusual bruising. No change in hair or nails. Neurologic: No aphasia. No facial droop. No change in mentation. No head injury. No headache. No paralysis. No paresthesia. Psychiatric: No depression. No anxiety. No mood swings. Endocrine: No abnormal blood sugars. No weight change. No excessive sweating or thirst. No cold intolerance. ASSESSMENT AND PLAN 1. Pain in the thoracic and lumbar spine regions, multiple compression fracture deformities T 11, T12, L1, L2 that her chronic, degenerative changes. Consult with orthopedic spine appreciated, consult is also in place with pain management. Continue patient on Cymbalta 30 mg twice daily, add Vance 7.5/325 one every 6 hours as needed, Dilaudid 1 mg IV push every 3 hours, Robaxin 750 mg 3 times daily, tramadol. R eye of the thoracic spine has been ordered. 24 Scheduled for kyphoplasty on February 01, involving T10 T12 L1-L2 verbetra 2. Multiple compression fractures possible pathologic. Patient was scheduled outpatient for PET scan. Consult with oncology. 3. Concern for multiple myeloma. Consult with oncology. 4. Hyperlipidemia. Continue Lipitor 10 mg daily. 5. Intestinal prophylaxis. Protonix. 6. DVT prophylaxis. Heparin subcu. 7. COVID-19 testing negative. Patient has been hospitalized during a pandemic. Patient will be admitted to the hospital for a minimum of 2 night stay. DISCHARGE PLAN Subacute rehab at [facility]. Laboratory Results - Last 24 Hours 01/31/21 01/31/21 12:31 12:31 D-Dimer 12.64 H Total Protein (PEP) 8.1 Current Medications Hydrocodone Bitart/Acetaminophen (Hydrocodone/Apap 5-325mg 1 Each Tab) 1 each PO Q4HR PRN PRN Reason: Pain Last Admin: 01/31/21 04:22 Dose: 1 each Documented by: Hydrocodone Bitart/Acetaminophen (Hydrocodone/Apap 7.5-325mg 1 Each Tab) 1 each PO Q6HR PRN PRN Reason: Pain Last Admin: 02/01/21 09:15 Dose: 1 each Documented by: Atorvastatin Calcium (Atorvastatin 10 Mg Tab) 10 mg PO DAILY [facility] Last Admin: 02/01/21 07:37 Dose: 10 mg Documented by: Duloxetine HCl (Duloxetine Hcl 30 Mg Capsule.) 30 mg PO BID [facility] Last Admin: 02/01/21 07:37 Dose: 30 mg Documented by: Ergocalciferol (Ergocalciferol 1,250 Mcg (50,000 Iu) Capsule) 1,250 mcg PO Q7D [facility] Last Admin: 01/31/21 11:25 Dose: 1,250 mcg Documented by: Heparin Sodium (Porcine) (Heparin Sodium,Porcine/Pf 5,000 Unit/0.5 Ml Syringe) 5,000 unit SQ Q12HR [facility] Last Admin: 02/01/21 07:37 Dose: 5,000 unit Documented by: Hydromorphone HCl (Hydromorphone 1 Mg/Ml 1 Ml Syringe) 1 mg IVP Q3HR PRN PRN Reason: Severe Pain Last Admin: 02/01/21 10:54 Dose: 1 mg Documented by: Sodium Chloride (Saline 0.9%) 1,000 mls @ 130 mls/hr IV .[id number] [facility] Last Admin: 02/01/21 07:35 Dose: 130 mls/hr Documented by: Methocarbamol (Methocarbamol 750 Mg Tab) 750 mg PO TID [facility] Last Admin: 02/01/21 07:36 Dose: 750 mg Documented by: Naloxone HCl (Naloxone 0.4 Mg/Ml 1 Ml Vial) 0.2 mg IV Q2M PRN PRN Reason: Opioid Reversal Pantoprazole Sodium (Pantoprazole 40 Mg Tablet) 40 mg PO AC-BRKFST [facility] Last Admin: 02/01/21 07:36 Dose: 40 mg Documented by: Polyethylene Glycol (Polyethylene Glycol 3350 17 Gm Powd.Pack) 17 gm PO DAILY [facility] Last Admin: 02/01/21 07:36 Dose: 17 gm Documented by: Tramadol HCl (Tramadol 50 Mg Tab) 50 mg PO Q6H PRN PRN Reason: Pain Laboratory Results WBC 3.4 k/uL (3.8-10.6) L 01/30/21 13:33 RBC 3.16 m/uL (4.30-5.90) L 01/30/21 13:33 Hgb 10.7 gm/dL (13.0-17.5) L 01/30/21 13:33 Hct 31.7 % (39.0-53.0) L 01/30/21 13:33 MCV 100.2 fL (80.0-100.0) H 01/30/21 13:33 MCH 33.8 pg (25.0-35.0) 01/30/21 13:33 MCHC 33.7 g/dL (31.0-37.0) 01/30/21 13:33 RDW 13.3 % (11.5-15.5) 01/30/21 13:33 Plt Count 225 k/uL (150-450) 01/30/21 13:33 MPV 7.7 01/30/21 13:33 Neutrophils % 75 % 01/30/21 13:33 Lymphocytes % 19 % 01/30/21 13:33 Monocytes % 4 % 01/30/21 13:33 Eosinophils % 1 % 01/30/21 13:33 Basophils % 0 % 01/30/21 13:33 Neutrophils # 2.6 k/uL (1.3-7.7) 01/30/21 13:33 Lymphocytes # 0.7 k/uL (1.0-4.8) L 01/30/21 13:33 Monocytes # 0.1 k/uL (0-1.0) 01/30/21 13:33 Eosinophils # 0.0 k/uL (0-0.7) 01/30/21 13:33 Basophils # 0.0 k/uL (0-0.2) 01/30/21 13:33 D-Dimer 12.64 mg/L FEU (<0.60) H 01/31/21 12:31 Sodium 136 mmol/L (137-145) L 01/30/21 13:33 Potassium 4.5 mmol/L (3.5-5.1) 01/30/21 13:33 Chloride 103 mmol/L (98-107) 01/30/21 13:33 Carbon Dioxide 25 mmol/L (22-30) 01/30/21 13:33 Anion Gap 8 mmol/L 01/30/21 13:33 BUN 26 mg/dL (9-20) H 01/30/21 13:33 Creatinine 1.35 mg/dL (0.66-1.25) H 01/30/21 13:33 Est GFR (CKD-EPI)AfAm 58 (>60 ml/min/1.73 sqM) 01/30/21 13:33 Est GFR (CKD-EPI)NonAf 50 (>60 ml/min/1.73 sqM) 01/30/21 13:33 Glucose 110 mg/dL (74-99) H 01/30/21 13:33 Calcium 10.1 mg/dL (8.4-10.2) 01/30/21 13:33 Total Bilirubin 0.5 mg/dL (0.2-1.3) 01/30/21 13:33 AST 33 U/L (17-59) 01/30/21 13:33 ALT 37 U/L (4-49) 01/30/21 13:33 Alkaline Phosphatase 210 U/L (38-126) H 01/30/21 13:33 Total Protein 9.6 g/dL (6.3-8.2) H 01/30/21 13:33 Total Protein (PEP) 8.1 g/dL (6.2-8.2) 01/31/21 12:31 Albumin 3.3 g/dL (3.5-5.0) L 01/30/21 13:33 Coronavirus (PCR) Not Detected (Not Detectd) 01/30/21 14:52 Objective - Vital Signs Vital signs: Vital Signs Temp 97.6 F 02/01/21 07:00 Pulse 89 02/01/21 07:00 Resp 16 02/01/21 07:00 BP 179/86 02/01/21 07:00 Pulse Ox 94 L 02/01/21 07:00 Intake & Output 01/31/21 02/01/21 02/01/21 18:59 06:59 18:59 Intake Total 180 Output Total 440 240 Balance -260 -240 Intake: Oral 180 Output: Urine 440 240 Other: Voiding Method Urinal Urinal # Voids 1 2 1 # Bowel Movements 1 1 - Labs CBC & Chem 7: 01/30/21 13:33 01/30/21 13:33 Labs: Abnormal Lab Results - Last 24 Hours (Table) 01/31/21 Range/Units 12:31 D-Dimer 12.64 H (<0.60) mg/L FEU
[2021-02-01 12:23] LABS: Albumin 1.98 g/dL (3.80-4.90); Gamma Globulin 3.9 g/dL (0.70-1.50)
[2021-02-01] MEDS ORDERED: IV FLUID CONTINUATION 1,000 ML IV ONE (12:52)
[2021-02-01 13:06] LABS: INR 1.1 (<1.2); Prothrombin Time 11.1 sec (9.0-12.0)
[2021-02-01] MEDS ORDERED: MIDAZOLAM 2 MG/2 ML VIAL IVP ONE (13:10)
[2021-02-01] MEDS ORDERED: fentaNYL (PF) 50 MCG/ML 2 ML AMP ONE (13:25)
[2021-02-01] MEDS ORDERED: PHENYLEPHRINE-0.9% NACL SYG 1,000 MCG/10 ML SYRINGE ONE (13:25)
[2021-02-01] MEDS ORDERED: LIDOCAINE 1% INJ 10MG/ML (20 ML MDV) ONE (13:25)
[2021-02-01] MEDS ORDERED: PROPOFOL 10 MG/ML 20 ML VIAL IV ONE (13:25)
[2021-02-01] MEDS ORDERED: SUCCINYLCHOLINE CHLORIDE 100 MG/5 ML SYR IV ONE (13:25)
[2021-02-01] MEDS ORDERED: LIDOCAINE 0.5%-EPI 1:200,000 50 ML VIAL SQ ONE (13:30)
[2021-02-01] MEDS ORDERED: IOPAMIDOL M200 10 ML VIAL MISCELLANE ONE (13:30)
[2021-02-01] MEDS ORDERED: LACTATED RINGERS 1,000 ML IV ONE (14:14)
--- NOTE | 2021-02-01 15:04 | P.OP ---
Date of Procedure: 02/01/21 Preoperative Diagnosis: Vertebral compression fractures T10, T12, L1, L2, presumed pathologic Thoracolumbar back pain Inability to ambulate Failed conservative treatment Postoperative Diagnosis: Same Anesthesia: GETA Pathology: other (Vertebral body biopsies sent separately from T10 T12 L1-L2 in formalin) Condition: stable Disposition: PACU Description of Procedure: BRIEF OPERATIVE NOTE Preoperative Diagnosis: Vertebral compression fractures T10, T12, L1, L2, presumed pathologic Thoracolumbar back pain Inability to ambulate Failed conservative treatment Postoperative Diagnosis: Same Procedure: Kyphoplasty at T10 T12 L1-L2 Vertebral body biopsy separately at T10 T12 L1-L2 Use of biplanar fluoroscopic guidance Surgeon: Dr. Jackson Animal Herder: Bruce Vergara is present throughout the entire the case persistence during positioning, dissection, exposure, visualization, and all crucial elements of the case as well as closure. Anesthesia: General anesthesia per Dr. Johnson Estimated blood loss: Less than 20 mL Specimen: Vertebral body biopsy sent to pathology in formalin from T10 T12 L1-L2 Complications: None apparent Components implanted: Bone cement with 4 and half cc at T10 and L2 and 6 mL at T12 and L1 Disposition: To recovery room in good stable condition. OPERATIVE INDICATIONS The patient has been having issues in their back over the past 6 weeks. He was initially found to have evidence of compression fracture at T10 and T12 and was placed in a brace with limited activity. He was then referred to our office and we saw him and he was found to have new evidence of fractures at L1 and L2 with possible worsening at T10. We ordered further imaging and the patient's pain was worsening and he had to be admitted to the hospital due to this. The patient has been through conservative treatment with TLSO and activity modification. They attempted conservative care with bracing however they're not having any benefit despite brace use. They continue to have significant pain and debility due to their fractures. We had significant concerns for other processes and possible pathologic process. He has had further imaging which showed evidence of subacute fracture at T10 T12 L1 and L2 which correlated with his pain. We have not found a specific pathologic process thus far but there is significant clinical suspicion given his new fractures without specific injury. The patient was not having any benefit despite conservative care and was interested in pursuing possibility of surgical options and stabilization with kyphoplasty We discussed various treatment options including surgery, and the patient wishes to proceed with surgery We discussed the risk, patient's altern atives and benefits of surgery including but not limited to, risk of bleeding risk of infection, risk of need for further surgery, risk of decreased, loss of motion, loss of function, cement extravasation, nerve damage, paralysis, heart attack, blindness and . OPERATIVE SUMMARY After discussing all the risks, patient alternatives and benefits at length, the patient elected to proceed with surgical intervention, signed informed consent, and presented for their procedure. The patient was seen and examined in the preoperative holding area and the surgical site was marked. The patient was given antibiotics and brought to the operating room. The patient was sedated and intubated by anesthesia in standard fashion. The patient was positioned on to the operating room table in a prone position on the appropriate well-padded and well molded bilateral chest rolls. We were careful to pad any bony prominences and pressure points. We were careful to maintain the patient's cervical spine and good neutral alignment and position throughout. We used 2 C-arm machines to establish biplanar fluoroscopic guidance in AP and lateral positions. We were able to localize the fractures appropriately. The patient was prepped and draped in a normal standard fashion. An appropriate timeout and keystone protocol performed. We were able to proceed with the surgery. Using the C-arm we were able to do identification of the fractures at T10 T12 L1-L2 referencing up from the sacrum as S1. We will count up to L2 and then start at that level to establish appropriate levels for T10 T12 L1 and L2. The kyphoplasty technique was performed similarly at each level with an incision on the right side. An incision was made over the lateral aspect of the pedicle over the appropriate levels with a small 2 mm stab incision. Intraoperative fluoroscopy was taken which showed a marker at the appropriate level first at L2 and then at L1 and then at T12 and then at T10. With the appropriate level positively confirmed, I was able to position a sharp trocar over the lateral aspect of the pedicle. As able to advance the trocar into the pedicle and into the posterior aspect of vertebral body being careful to avoid penetration cephalad caudad or medially. The trocar was placed appropriately into the posterior aspect of vertebral body at the appropriate levels. This was confirmed with C-arm guidance. With the trocar intact I was then able to take a bone biopsy with a biopsy punch or a bony drill. The biopsy specimen was passed off to be sent to pathology in formalin. I was then able to place the kyphoplasty balloon within the vertebral body. The position was checked on C-arm. I was able to inflate the balloon under low pressure and visualization with C-arm. The balloon was well enclosed within the vertebral body. The cement was prepared. With the cement at appropriate working condition the balloons were deflated and removed. All of the balloons were inflated to under very low pressure. I was able to place bony cement with trocar with the cement delivery device under low pressure. It had good fill within the vertebral body. There is no evidence of any extravasation of the cement posteriorly toward the canal. The cement was well contained at the appropriate levels. The cement was allowed to cure appropriately. The trochars removed and final images were taken on C-arm. This showed the cement at the appropriate levels at each of the levels of T10 T12 L1 and L2. We were able to proceed with closure. The wound was cleaned and dried and dressed with the appropriate dressing. The drapes were broken down. The patient was gently rolled back onto their hospital bed being careful to maintain their cervical spine and good neutral alignment and position. They were woken up by anesthesia, extubated, and brought to the recovery room in good stable condition. The patient will be admitted to the hospital for observation and for appropriate postoperative care, medical management and monitoring. We will continue to follow them closely about the postoperative course.
--- NOTE | 2021-02-01 15:33 | FL ---
Fluoroscopy HISTORY: Pain, kyphoplasty 85 seconds fluoroscopy time supplied to the referring clinician. 9 intraoperative C-arm images docum ent the procedure. See dictated report from orthopedic surgery.
[2021-02-01 16:52] LABS: % Iron Saturation 30.88 (15.00-50.00)
[2021-02-01] MEDS: traMADol 50 MG TAB PO PRN (20:32)
[2021-02-01] MEDS: HYDROcodone/APAP 5-325MG 1 EACH TAB PO PRN (22:46)
[2021-02-02] MEDS: HYDROcodone/APAP 7.5-325MG 1 EACH TAB PO PRN (01:54)
[2021-02-02] MEDS: SODIUM CHLORIDE 0.9% 1,000 ML IV SCH ×3 (03:43→22:20)
[2021-02-02] MEDS: HYDROcodone/APAP 5-325MG 1 EACH TAB PO PRN (04:17)
--- NOTE | 2021-02-02 09:17 | P.PN ---
Progress Note - Text Progress Note Date: 02/02/21 Postoperative day #1 Patient is seen and examined today at bedside. He says he notices very little change in his symptoms thus far but he has been able to move his legs and his arms better. He does not feel his pain medication makes much difference for him. His is on the phone at bedside and I discussed this with her as well. He denies chest pain shortness of breath. Physical Exam Afebrile with stable vital signs Abdomen is soft nontender. Chest has good excursion deep and space expiration The incision site is clean dry and intact. No erythema there is no purulence. There is no drainage on the dressing. The sites are clear. Extremities have not had neurologic change from prior to surgery. He is able to lift his legs off off the bed individually. There is no pain in his lower extremities. His pain in his back when he tries to change position significantly Calves and thighs were soft nontender without evidence of DVT. Assessment/Plan Postoperative day #1 status post vertebral body biopsy and kyphoplasty at T10 T12 L1 and L2 for compression fractures Patient is making some minimal improvement from the surgery thus far. Clinically on exam he seems to have be moving somewhat better in bed as she was able to sit up slightly rolled to his side without as much problems as he was having before. He is not sure if he feels significant we better but he seems to be moving a little bit better. We will continue to increase the patient's mobilization with therapy. He does not need to use his brace while in bed or drink his transfers. If he is up mobilizing and inflating I think he should have his brace on but otherwise he can have it off if he wishes. He does not need his brace in bed or while seated. The patient and his are not comfortable with him trying to go home in his current state and I think that is understandable. The patient has significant weakness and inability to mobilize and I think he needs intermediate or rehab. Hopefully he can work on transfer to intermediate or rehab today or tomorrow. We will consult rehab as well. He is continuing his workup from oncology as well. We will continue pain control with oral or IV medications. We'll continue to follow patient closely. From an orthopedic spine standpoint he is myesha rologically intact with stable sites at the kyphoplasty's. It is okay for him to be discharged to intermediate or rehab from a orthopedic spine standpoint whenever he is clear with medicine
[2021-02-02] MEDS: polyethylene glycoL 3350 17 GM POWD.PACK PO SCH (09:59)
[2021-02-02] MEDS: DULoxetine HCL 30 MG CAPSULE.DR PO SCH ×2 (10:25→22:10)
[2021-02-02] MEDS: HEPARIN SODIUM,PORCINE/PF 5,000 UNIT/0.5 ML SYRINGE SQ SCH ×2 (10:25→22:10)
[2021-02-02] MEDS: PANTOPRAZOLE 40 MG TABLET PO SCH (10:25)
[2021-02-02] MEDS: oxyCODONE-APAP 5-325MG 1 EACH TAB PO PRN ×3 (10:25→19:12)
[2021-02-02] MEDS: ATORVASTATIN 10 MG TAB PO SCH (10:27)
[2021-02-02] MEDS: methocarbamoL 750 MG TAB PO SCH ×3 (10:27→22:10)
--- NOTE | 2021-02-02 12:08 | XR ---
EXAMINATION TYPE: XR bone survey complete DATE OF EXAM: 02/02/2021 COMPARISON: NONE HISTORY: 75-year-old male multiple myeloma. TECHNIQUE: 17 views FINDINGS: Cervical spine: Uncovertebral joint an facet arthropathy. Moderate degenerative disc disease C5-T1 le vels. Grade 1 anterolisthesis C7-T1. No discrete lytic lesion is identified. Thoracic spine: Vertebroplasty change T10 and T12. Limited visualization of upper to mid thoracic butch tebral bodies due to the degree of osteopenia. Lumbar spine: Moderate degenerative disc disease and facet arthropathy lower lumbar spine. T12 and L1 , and L2 vertebroplasty change. L3, L4, L5 vertebral body heights are maintained. CHEST: Heart upper limits of normal in size. Strandy atelectasis left base. No discrete lytic rib les ion or clavicular lesion is identified. Humeri: No endosteal scalloping or punched-out lytic lesion identified. Calvarium: Small rounded lucent areas may represent venous lakes. No dominant lytic lucency is identi fied. Pelvis: Small oval lucencies at the lower right femoral neck and right intertrochanteric region. Oral contrast material within the cecum obscures most of the right iliac wing. Surgical clips in the uppe r left side of the pelvis. Pelvic lymph nodes. Femurs: Oval lucent area along the lateral intramedullary space of the proximal left femoral shaft. N o definite additional additional suspicious lucent areas are seen. IMPRESSION: 1. Small oval lucencies at the lateral right femoral neck and right intertrochanteric region on the A P view of the pelvis. 2. An oval lucent area along the lateral intramedullary space of the proximal left femoral shaft as w ell. Small myelomatous lesions difficult to exclude. 3. Small round lucencies in the calvarium are equivocal and may relate to small venous lakes. 4. Previous vertebroplasty change T10, T12, L1, and L2. Visualization of the upper and mid thoracic v ertebral bodies is limited due to the degree of osteopenia.
--- NOTE | 2021-02-02 13:11 | P.CONS ---
History of Present Illness - Chief Complaint Walking difficulty - History of Present Illness I had the opportunity to see patient for inpatient rehab consultation with regard to walking difficulty. 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 Underwent kyphoplasty T10, 12 and L1-2 i.e. on February 01. Seen by Dr. Mandel for pain. Seen by oncology for the cancer. No tests of bone survey, TL spine x-ray, thoracic MRI spine [address] of chest abdomen and pelvis. PT reports supervision for bed mobility and gait 20 feet with roller walker and minimal assistance to sit and stand up. OT prescribed. Previous functional history as elicited from patient: 75-year-old right-handed white male who is lives in one floor home with basement with . during does the cooking and laundry. Patient retired. Patient independent with driving, standing shower gait without device. PCP Dr. Desai. Denies tobacco and has rare drink. Review of Systems Review of systems: ENT: Denies sneezes or discharge. Eyes: Denies discharge or photophobia. Cardiac: Denies chest pain or palpitation. Pulmonary: Denies cough or shortness of breath. Gastrointestinal: Denies nausea, emesis, constipation, diarrhea. Genitourinary: Denies discharge or frequency. Musculoskeletal: Back pain radiating into legs. Neurologic: Denies motor or sensory change. Back pain radiating to legs. Endocrine: Denies shakes or sweats. Oncology: Denies cancers. Dermatologic: Denies rash, itching, pruritus. ALLERGY/immunology: Denies sneezes, rashes. Past Medical History Past Medical History: Cancer, GERD/Reflux, Hyperlipidemia, Osteoarthritis (OA) Additional Past Medical History / Comment(s): hx. liposarcoma. 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 History of Any Multi-Drug Resistant Organisms: None Reported Additional Past Surgical History / Comment(s): cancerous tumor removed from left side of abdomen Past Anesthesia/Blood Transfusion Reactions: No Reported Reaction Past Psychological History: No Psychological Hx Reported Smoking Status: Former smoker Past Alcohol Use History: Occasional Additional Past Alcohol Use History / Comment(s): Pt smoked for 1 year and quit a long time ago. Past Drug Use History: None Reported Medications and Allergies Home Medications Medication Instructions Recorded Confirmed Type Rosuvastatin Calcium [Crestor] 5 mg PO DIRECTED 08/11/13 01/30/21 History Cyclobenzaprine [Flexeril] 5 mg PO BID PRN 01/30/21 01/30/21 History DULoxetine HCL [Cymbalta] 30 mg PO DAILY 01/30/21 01/30/21 History Hydrocodone/Acetaminophen [Lamar 1 tab PO Q4HR PRN 01/30/21 01/30/21 History 5-325] traMADol HCL [Ultram] 50 mg PO Q6H PRN 01/30/21 01/30/21 History oxyCODONE HCL/ACETAMINOPHEN 1 tab PO Q4HR PRN 3 Days #42 tab 02/02/21 Rx [Percocet 5-325 mg] Allergies Allergy/AdvReac Type Severity Reaction Status Date / Time No Known Allergies Allergy Verified 02/01/21 12:52 Physical Exam Vitals: Vital Signs Temp Pulse Pulse Resp BP BP Pulse Ox 02/02/21 07:00 98.3 F 96 16 166/86 94 L 02/02/21 02:00 98.1 F 95 18 154/89 95 02/01/21 22:39 97.8 F 96 18 150/79 94 L 02/01/21 17:17 92 178/94 96 02/01/21 16:40 90 172/91 96 02/01/21 16:29 92 16 172/82 93 L 02/01/21 16:25 92 176/96 95 02/01/21 15:53 91 16 158/72 96 02/01/21 15:39 83 16 139/66 97 02/01/21 15:24 78 16 131/62 97 02/01/21 15:09 96.9 F L 84 16 136/63 95 02/01/21 13:17 87 18 156/84 95 Intake and Output 02/01/21 02/02/21 02/02/21 22:59 06:59 14:59 Intake Total 200 118 Output Total 400 Balance -200 118 Intake: IV 200 Oral 118 Output: Urine 400 Other: Voiding Method Urinal # Voids 2 2 # Bowel Movements 1 Skin: Atrophic, intact. General: Medium build and comfortable appearance. Head: Normocephalic, atraumatic. Eyes: Symmetric. Pupils equal round. Ears: Symmetric. Hearing within normal limits. Mouth: Clear. Neck: Supple. Carotid without bruit. Cardiac: Regular rate and rhythm. Lungs: Clear anteriorly and posteriorly. Abdomen: Soft active nontender. Extremities: Normal tone. Neurological: Mental status: Alert, cooperative, pleasant. Cranial nerves: Symmetric facial tone and trapezius. Motor: Active movement all 4 limbs. Sitting best antigravity and due to giveaway weakness, back pain. Sensation: Intact throughout. DTRs: Symmetric and equal throughout. Mobility: Patient reports two-person assist to stand and transfer to bedside Mandy chair. Results CBC & Chem 7: 01/30/21 13:33 01/30/21 13:33 Labs: Abnormal Lab Results - Last 24 Hours (Table) 01/30/21 02/01/21 Range/Units 13:33 10:03 TIBC 225 L (228-460) ug/dL Transferrin 161.0 L (204.0-354.0) mg/dL Ferritin 1686.0 H (22.0-322.0) ng/mL RBC Folate 964 H (280 - 791) ng/mL Assessment and Plan (1) Difficulty in walking Current Visit: Yes Status: Acute Code(s): R26.2 - DIFFICULTY IN WALKING, NOT ELSEWHERE CLASSIFIED SNOMED Code(s): 228983510 (2) Intractable back pain Current Visit: Yes Status: Acute Priority: High Code(s): M54.9 - DORSALGIA, UNSPECIFIED SNOMED Code(s): 433229267 Plan: Impression: 1. Walking difficulty due to compressions T7, 11, 12, L2 back pain. Status post kyphoplasty T10, T12, L1-2. 2. Liposarcoma, multiple myeloma. 3. Back pain. 4. Osteoarthritis. 5. Reflux. 6. Dyslipidemia. The plan: At this time PT ongoing and OT prescribed. Follow therapies with yourself. Patient voices eagerness for inpatient rehab if necessary. Reports much workup being done currently and this is related to cancer and possible cancer treatment.
--- NOTE | 2021-02-02 17:56 | P.PN ---
Subjective Progress Note Date: 02/02/21 Principal diagnosis: Bone lesions, labs suspect multiple myeloma In f/u pt has no acute c/o, pain is better managed. Objective - Vital Signs Vital signs: Vital Signs Temp 98.3 F 02/02/21 07:00 Pulse 96 02/02/21 07:00 Resp 16 02/02/21 07:00 BP 166/86 02/02/21 07:00 Pulse Ox 94 L 02/02/21 07:00 Intake & Output 02/01/21 02/02/21 02/02/21 18:59 06:59 18:59 Intake Total 1150 Output Total 560 100 Balance 590 -100 Intake: IV 1150 Output: Urine 540 100 Estimated Blood Loss 20 Other: Voiding Method Urinal # Voids 1 2 # Bowel Movements 1 1 - Constitutional General appearance: Present: average body habitus, cooperative, no acute distress - EENT Eyes: Present: anicteric sclerae, EOMI ENT: Present: hearing grossly normal - Respiratory Details: resp even and unlabored at rest - Neurologic Neurologic: Present: CNII-XII intact - Musculoskeletal Musculoskeletal: Present: strength equal bilaterally - Psychiatric Psychiatric: Present: A&O x's 3, appropriate affect, intact judgment & insight - Labs CBC & Chem 7: 01/30/21 13:33 01/30/21 13:33 Labs: Abnormal Lab Results - Last 24 Hours (Table) 01/30/21 01/31/21 Range/Units 13:33 12:31 TIBC 225 L (228-460) ug/dL Transferrin 161.0 L (204.0-354.0) mg/dL Ferritin 1686.0 H (22.0-322.0) ng/mL Albumin (PEP) 1.98 L (3.80-4.90) g/dL Cdcdu-2-Feppzpeth 0.47 H (0.10-0.40) g/dL Ojbke-9-Hgzakrecp 1.18 H (0.60-1.00) g/dL Beta Globulins 0.56 L (0.60-1.30) g/dL Gamma Globulins 3.90 H (0.70-1.50) g/dL Assessment and Plan (1) Intractable back pain Narrative/Plan: Pain Management and Orthopedic Spine Surgeon following and treating patient. Pain r/t compression fractures, cause osteoporosis and suspect myeloma. Pending bone biopsy Cont pain meds Cont meds for prevention of narcotic induced constipation Current Visit: Yes Status: Acute Priority: High Code(s): M54.9 - DORSALGIA, UNSPECIFIED SNOMED Code(s): 217797955 Plan: 3/74g/dl paraproteinemia, stilll ending a few more results. Dr. malone discussed multiple myeloma is most likely diagnosis, still pending some studies. Added 24 hour urine protein electrophoresis and K/L light chains and Whole body bone survey. Will cont to inform pt of info as it becomes available. Pending results from bone biopsy as well. Doctor attests: I performed a history and physical examination of this patient, developed impression and plan of care. Discussed with dictator. I agree with dictators note, documented as a scribe.
--- NOTE | 2021-02-02 18:37 | P.PN ---
Subjective Progress Note Date: 02/02/21 HISTORY OF PRESENT ILLNESS This is a 75-year-old male patient of Dr. 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 Patient states that he is seen by Dr. Jackson and underwent MRI yesterday. He was heading home but was in such severe pain he decided to come into the emergency center for further evaluation. He states Dr. Martin has been the one managing his pain and his home pain medications have not been working. He does get some improvement of pain when he lays down. The pain is across his lumbar area with spasms. He denies having any numbness or tingling. He usually walks with a walker but this is been very difficult over the past 2 weeks due to loss of strength and increasing pain. Patient has a TLSO brace which he is wearing. A consult has been placed for Dr. Espitia by orthopedic spine. Consult is also in place with pain management. Patient was scheduled for PET scan on by Dr. Melendrez. Lumbar MRI imaging taken at [facility] on 01/30/2021: Inhomogenous bone marrow signal intensity of the regional bony structures which may be related to diffuse osteopenia and fibrofatty changes of aging but if con cern for more aggressive process correlate with a whole-body nuclear bone scan. If concern for multiple myeloma correlate with serum CBC and serum protein electrophoresis could be made; multiple compression fracture deformities at T11, T12, L1, and L2 that appear chronic in nature with no bone marrow edema to suggest acute component; mild dextroscoliosis at the thoracolumbar junction; mild levoscoliosis at L3-4; L1-2, L2-3, and L3-4 facet hypertrophy; L4-5 disc osteophyte complex with mild to moderate left neural foraminal narrowing with abutment of the exiting L4 nerve root; L5-S1 discosteophyte complex extending into the right neural foramina with some abutment to the exiting right L5 nerve root; distended colon; enlarged prostate gland. X-rays of the lumbosacral spine taken at [facility] on 01/24/2021: Compression fracture deformities of L1 and L2 with approximately 30% height loss; T12 compression fracture deformity with approximately 10% height loss; possible compression fracture T11; L4-5 degenerative disc disease Nuclear medicine whole-body bone scan taken at [facility] on 01/04/2021: Increased uptake at T7 and T12 02/01/21: Patient is having surgery, for kyphoplasty, for disc involving T10 and T12 L1 L2, by Dr. Jackson. He has no history of CAD CHF CVA, or CK D stage III. Patient is doing well, had never complained of post anesthesia problems in the past. is at bedside, has informed me that she patient needs subacute care, as she cannot take her off [facility] home, the just had right knee replacement January this year. Phosphorous, anticipate discharge. Kyphoplasty in the next 2448 hrs. once cleared by orthopedics. EKG was reviewed, normal sinus rhythm without any QT prolongation, vitals are stable, checked for INR, cleared for surgery today, class II anesthesia risk. Revised cardiac risk index of 0. 02/02: Patient still has uncontrolled pain, requires assistance for walking, bone scan, shows small oval lucency stripe femoral neck, and right intratrochanteric region, of the pelvis, small myelomatous lesions difficult to exclude, including the left femoral shaft and lateral intramedullary space. There are small lucencies in the cranium, equivocal and may relate to small venous lakes, there is limited degree for shopping, status post vertebroplasty T10 T12 L1-L2 insurance is quite [id number] for this admission, [phone], extension [phone], ID number [id number], reference #[id number] have called twice on 2 separate occasions, regarding the [id number], on the voicemail can be reached at this time Review of systems Constitutional: No fever, no chills, no night sweats. No weight change. No weakness, fatigue or lethargy. No daytime sleepiness. EENT: No headache. No blurred vision or double vision, no loss of vision. No loss of Hearing, no ringing in the ears, no dizziness. No nasal drainage or congestion. No epistaxis. No sore throat. Lungs: No shortness of breath, cough, no sputum production. No wheezing. Cardiovascular: No chest pain, no lower extremity edema. No palpitations. No paroxysmal nocturnal dyspnea. No orthopnea. No lightheadedness or dizziness. No syncopal episodes. Abdominal: No abdominal pain. No nausea, vomiting. No diarrhea. No constipation. No bloody or tarry stools. No loss of appetite. Genitourinary: No dysuria, increased frequency, urgency. No urinary retention. Musculoskeletal: No myalgias. No muscle weakness, no gait dysfunction, no frequent falls. Reports back pain. No neck pain. Integumentary: No wounds, no lesions. No rash or pruritus. No unusual bruising. No change in hair or nails. Neurologic: No aphasia. No facial droop. No change in mentation. No head injury. No headache. No paralysis. No paresthesia. Psychiatric: No depression. No anxiety. No mood swings. Endocrine: No abnormal blood sugars. No weight change. No excessive sweating or thirst. No cold intolerance. ASSESSMENT AND PLAN 1. Pain in the thoracic and lumbar spine regions, multiple compression fracture deformities T 11, T12, L1, L2 that her chronic, degenerative changes. Consult with orthopedic spine appreciated, consult is also in place with pain management. Continue patient on Cymbalta 30 mg twice daily, add Milo 7.5/325 one every 6 hours as needed, Dilaudid 1 mg IV push every 3 hours, Robaxin 750 mg 3 times daily, tramadol. R eye of the thoracic spine has been ordered. 24 Scheduled for kyphoplasty on February 01, involving T10 T12 L1-L2 verbetra 2. Multiple compression fractures possible pathologic. Patient was scheduled outpatient for PET scan. Consult with oncology. 3. Concern for multiple myeloma. Consult with oncology and they're following, might need bone marrow biopsy one the hospital. 4. Hyperlipidemia. Continue Lipitor 10 mg daily. 5. Intestinal prophylaxis. Protonix. 6. DVT prophylaxis. Heparin subcu. 7. COVID-19 testing negative. Patient has been hospitalized during a pandemic. Patient will be admitted to the hospital for a minimum of 2 night stay. DISCHARGE PLAN Subacute rehab at [facility]. Laboratory Results - Last 24 Hours 01/31/21 01/31/21 12:31 12:31 D-Dimer 12.64 H Total Protein (PEP) 8.1 Current Medications Hydrocodone Bitart/Acetaminophen (Hydrocodone/Apap 5-325mg 1 Each Tab) 1 each PO Q4HR PRN PRN Reason: Pain Last Admin: 01/31/21 04:22 Dose: 1 each Documented by: Hydrocodone Bitart/Acetaminophen (Hydrocodone/Apap 7.5-325mg 1 Each Tab) 1 each PO Q6HR PRN PRN Reason: Pain Last Admin: 02/01/21 09:15 Dose: 1 each Documented by: Atorvastatin Calcium (Atorvastatin 10 Mg Tab) 10 mg PO DAILY [facility] Last Admin: 02/01/21 07:37 Dose: 10 mg Documented by: Duloxetine HCl (Duloxetine Hcl 30 Mg Capsule.Dr) 30 mg PO BID [facility] Last Admin: 02/01/21 07:37 Dose: 30 mg Documented by: Ergocalciferol (Ergocalciferol 1,250 Mcg (50,000 Iu) Capsule) 1,250 mcg PO Q7D [facility] Last Admin: 01/31/21 11:25 Dose: 1,250 mcg Documented by: Heparin Sodium (Porcine) (Heparin Sodium,Porcine/Pf 5,000 Unit/0.5 Ml Syringe) 5,000 unit SQ Q12HR [facility] Last Admin: 02/01/21 07:37 Dose: 5,000 unit Documented by: Hydromorphone HCl (Hydromorphone 1 Mg/Ml 1 Ml Syringe) 1 mg IVP Q3HR PRN PRN Reason: Severe Pain Last Admin: 02/01/21 10:54 Dose: 1 mg Documented by: Sodium Chloride (Saline 0.9%) 1,000 mls @ 130 mls/hr IV .Q7H42M [facility] Last Admin: 02/01/21 07:35 Dose: 130 mls/hr Documented by: Methocarbamol (Methocarbamol 750 Mg Tab) 750 mg PO TID [facility] Last Admin: 02/01/21 07:36 Dose: 750 mg Documented by: Naloxone HCl (Naloxone 0.4 Mg/Ml 1 Ml Vial) 0.2 mg IV Q2M PRN PRN Reason: Opioid Reversal Pantoprazole Sodium (Pantoprazole 40 Mg Tablet) 40 mg PO AC-BRKFST [facility] Last Admin: 02/01/21 07:36 Dose: 40 mg Documented by: Polyethylene Glycol (Polyethylene Glycol 3350 17 Gm Powd.Pack) 17 gm PO DAILY [facility] Last Admin: 02/01/21 07:36 Dose: 17 gm Documented by: Tramadol HCl (Tramadol 50 Mg Tab) 50 mg PO Q6H PRN PRN Reason: Pain Laboratory Results WBC 3.4 k/uL (3.8-10.6) L 01/30/21 13:33 RBC 3.16 m/uL (4.30-5.90) L 01/30/21 13:33 Hgb 10.7 gm/dL (13.0-17.5) L 01/30/21 13:33 Hct 31.7 % (39.0-53.0) L 01/30/21 13:33 MCV 100.2 fL (80.0-100.0) H 01/30/21 13:33 MCH 33.8 pg (25.0-35.0) 01/30/21 13:33 MCHC 33.7 g/dL (31.0-37.0) 01/30/21 13:33 RDW 13.3 % (11.5-15.5) 01/30/21 13:33 Plt Count 225 k/uL (150-450) 01/30/21 13:33 MPV 7.7 01/30/21 13:33 Neutrophils % 75 % 01/30/21 13:33 Lymphocytes % 19 % 01/30/21 13:33 Monocytes % 4 % 01/30/21 13:33 Eosinophils % 1 % 01/30/21 13:33 Basophils % 0 % 01/30/21 13:33 Neutrophils # 2.6 k/uL (1.3-7.7) 01/30/21 13:33 Lymphocytes # 0.7 k/uL (1.0-4.8) L 01/30/21 13:33 Monocytes # 0.1 k/uL (0-1.0) 01/30/21 13:33 Eosinophils # 0.0 k/uL (0-0.7) 01/30/21 13:33 Basophils # 0.0 k/uL (0-0.2) 01/30/21 13:33 D-Dimer 12.64 mg/L FEU (<0.60) H 01/31/21 12:31 Sodium 136 mmol/L (137-145) L 01/30/21 13:33 Potassium 4.5 mmol/L (3.5-5.1) 01/30/21 13:33 Chloride 103 mmol/L (98-107) 01/30/21 13:33 Carbon Dioxide 25 mmol/L (22-30) 01/30/21 13:33 Anion Gap 8 mmol/L 01/30/21 13:33 BUN 26 mg/dL (9-20) H 01/30/21 13:33 Creatinine 1.35 mg/dL (0.66-1.25) H 01/30/21 13:33 Est GFR (CKD-EPI)AfAm 58 (>60 ml/min/1.73 sqM) 01/30/21 13:33 Est GFR (CKD-EPI)NonAf 50 (>60 ml/min/1.73 sqM) 01/30/21 13:33 Glucose 110 mg/dL (74-99) H 01/30/21 13:33 Calcium 10.1 mg/dL (8.4-10.2) 01/30/21 13:33 Total Bilirubin 0.5 mg/dL (0.2-1.3) 01/30/21 13:33 AST 33 U/L (17-59) 01/30/21 13:33 ALT 37 U/L (4-49) 01/30/21 13:33 Alkaline Phosphatase 210 U/L (38-126) H 01/30/21 13:33 Total Protein 9.6 g/dL (6.3-8.2) H 01/30/21 13:33 Total Protein (PEP) 8.1 g/dL (6.2-8.2) 01/31/21 12:31 Albumin 3.3 g/dL (3.5-5.0) L 01/30/21 13:33 Coronavirus (PCR) Not Detected (Not Detectd) 01/30/21 14:52 Objective - Vital Signs Vital signs: Vital Signs Temp 98.3 F 02/02/21 07:00 Pulse 96 02/02/21 07:00 Resp 16 02/02/21 07:00 BP 166/86 02/02/21 07:00 Pulse Ox 94 L 02/02/21 07:00 Intake & Output 02/01/21 02/02/21 02/02/21 18:59 06:59 18:59 Intake Total 1150 118 Output Total 560 100 Balance 590 -100 118 Intake: IV 1150 Oral 118 Output: Urine 540 100 Estimated Blood Loss 20 Other: Voiding Method Urinal # Voids 1 2 # Bowel Movements 1 1 - Labs CBC & Chem 7: 01/30/21 13:33 01/30/21 13:33 Labs: Abnormal Lab Results - Last 24 Hours (Table) 01/30/21 01/31/21 Range/Units 13:33 12:31 TIBC 225 L (228-460) ug/dL Transferrin 161.0 L (204.0-354.0) mg/dL Ferritin 1686.0 H (22.0-322.0) ng/mL Albumin (PEP) 1.98 L (3.80-4.90) g/dL Ogpcr-3-Tqynjmalj 0.47 H (0.10-0.40) g/dL Cetqc-6-Mpuaidumt 1.18 H (0.60-1.00) g/dL Beta Globulins 0.56 L (0.60-1.30) g/dL Gamma Globulins 3.90 H (0.70-1.50) g/dL
[2021-02-03] MEDS: polyethylene glycoL 3350 17 GM POWD.PACK PO SCH (09:40)
[2021-02-03] MEDS: methocarbamoL 750 MG TAB PO SCH ×3 (09:40→19:44)
[2021-02-03] MEDS: PANTOPRAZOLE 40 MG TABLET PO SCH (09:40)
[2021-02-03] MEDS: HEPARIN SODIUM,PORCINE/PF 5,000 UNIT/0.5 ML SYRINGE SQ SCH ×2 (09:40→19:44)
[2021-02-03] MEDS: ATORVASTATIN 10 MG TAB PO SCH (09:40)
[2021-02-03] MEDS: DULoxetine HCL 30 MG CAPSULE.DR PO SCH ×2 (09:41→19:44)
--- NOTE | 2021-02-03 10:29 | P.PN ---
Subjective Progress Note Date: 02/03/21 This is a 75-year-old male who was admitted for back pain. Patient is status post vertebral body biopsy and kyphoplasty at T10 T12 L1 and L2 for compression fractures by Dr. Jackson. This is postoperative day #2 and patient is seen and evaluated at bedside today. Patient states that when he is resting in bed he has no pain, but when he gets out of bed this pain increases and he feels weak. Otherwise patient denies any new complaints today. Objective - Vital Signs Vital signs: Vital Signs Temp 97.9 F 02/03/21 08:00 Pulse 107 H 02/03/21 08:00 Resp 16 02/03/21 08:00 BP 170/85 02/03/21 08:00 Pulse Ox 96 02/03/21 08:00 Intake & Output 02/02/21 02/03/21 02/03/21 18:59 06:59 18:59 Intake Total 118 Output Total 225 225 Balance 118 -225 -225 Intake: Oral 118 Output: Urine 225 225 Other: Voiding Method Urinal # Voids 1 2 - Exam On exam patient is resting comfortably in bed in no acute distress. Patient is alert and oriented 3. Patient moves arms and legs freely. Sensation intact. Neurovascular status and circulatory status are intact. - Labs CBC & Chem 7: 01/30/21 13:33 01/30/21 13:33 Labs: Abnormal Lab Results - Last 24 Hours (Table) 02/01/21 Range/Units 10:03 RBC Folate 964 H (280 - 791) ng/mL Assessment and Plan Assessment: Status post vertebral body biopsy and kyphoplasty at T10 T12 L1 and L2 for compression fractures Plan: 1. Continue routine postoperative care and pain control. 2. Continue physical therapy for mobilization. Recommend use of brace when he is out of bed. 3. Patient states that he is considering inpatient rehab placement. Patient is clear for discharge to [facility] from an orthopedic standpoint once cleared medically.
[2021-02-03] MEDS: SODIUM CHLORIDE 0.9% 1,000 ML IV SCH ×3 (13:08→23:12)
[2021-02-03] MEDS: oxyCODONE-APAP 5-325MG 1 EACH TAB PO PRN ×2 (13:11→18:21)
--- NOTE | 2021-02-03 14:29 | P.PN ---
Subjective Progress Note Date: 02/03/21 HISTORY OF PRESENT ILLNESS This is a 75-year-old male patient of Dr. 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 Patient states that he is seen by Dr. Jackson and underwent MRI yesterday. He was heading home but was in such severe pain he decided to come into the emergency center for further evaluation. He states Dr. Martin has been the one managing his pain and his home pain medications have not been working. He does get some improvement of pain when he lays down. The pain is across his lumbar area with spasms. He denies having any numbness or tingling. He usually walks with a walker but this is been very difficult over the past 2 weeks due to loss of strength and increasing pain. Patient has a TLSO brace which he is wearing. A consult has been placed for Dr. Espitia by orthopedic spine. Consult is also in place with pain management. Patient was scheduled for PET scan on by Dr. Melendrez. Lumbar MRI imaging taken at [facility] on 01/30/2021: Inhomogenous bone marrow signal intensity of the regional bony structures which may be related to diffuse osteopenia and fibrofatty changes of aging but if con cern for more aggressive process correlate with a whole-body nuclear bone scan. If concern for multiple myeloma correlate with serum CBC and serum protein electrophoresis could be made; multiple compression fracture deformities at T11, T12, L1, and L2 that appear chronic in nature with no bone marrow edema to suggest acute component; mild dextroscoliosis at the thoracolumbar junction; mild levoscoliosis at L3-4; L1-2, L2-3, and L3-4 facet hypertrophy; L4-5 disc osteophyte complex with mild to moderate left neural foraminal narrowing with abutment of the exiting L4 nerve root; L5-S1 discosteophyte complex extending into the right neural foramina with some abutment to the exiting right L5 nerve root; distended colon; enlarged prostate gland. X-rays of the lumbosacral spine taken at [facility] on 01/24/2021: Compression fracture deformities of L1 and L2 with approximately 30% height loss; T12 compression fracture deformity with approximately 10% height loss; possible compression fracture T11; L4-5 degenerative disc disease Nuclear medicine whole-body bone scan taken at [facility] on 01/04/2021: Increased uptake at T7 and T12 02/01/21: Patient is having surgery, for kyphoplasty, for disc involving T10 and T12 L1 L2, by Dr. Jackson. He has no history of CAD CHF CVA, or CK D stage III. Patient is doing well, had never complained of post anesthesia problems in the past. is at bedside, has informed me that she patient needs subacute care, as she cannot take her off Hemoccult home, the just had right knee replacement January this year. Phosphorous, anticipate discharge. Kyphoplasty in the next 2448 hrs. once cleared by orthopedics. EKG was reviewed, normal sinus rhythm without any QT prolongation, vitals are stable, checked for INR, cleared for surgery today, class II anesthesia risk. Revised cardiac risk index of 0. 02/02: Patient still has uncontrolled pain, requires assistance for walking, bone scan, shows small oval lucency stripe femoral neck, and right intratrochanteric region, of the pelvis, small myelomatous lesions difficult to exclude, including the left femoral shaft and lateral intramedullary space. There are small lucencies in the cranium, equivocal and may relate to small venous lakes, there is limited degree for shopping, status post vertebroplasty T10 T12 L1-L2 insurance is quite [id number] for this admission, [phone], extension [phone], ID number [id number], reference #[id number] have called twice on 2 separate occasions, regarding the [id number], on the voicemail can be reached at this time 02/03 and has better pain control, however pain with ambulation, lower back area, with radiation to the suprapubic region, in the groin. Suspect either urinary retention, against L1 radiculopathy, start gabapentin 300 mg at bedtime, awaiting formal approval for inpatient therapy, or subacute rehab. Patient has requested to resume Xanax 0.5 twice a day when necessary PVRs to be checked. Vitals are stable, i called insurance company again for approval, they did not call me Review of systems Constitutional: No fever, no chills, no night sweats. No weight change. No weakness, fatigue or lethargy. No daytime sleepiness. EENT: No headache. No blurred vision or double vision, no loss of vision. No loss of Hearing, no ringing in the ears, no dizziness. No nasal drainage or congestion. No epistaxis. No sore throat. Lungs: No shortness of breath, cough, no sputum production. No wheezing. Cardiovascular: No chest pain, no lower extremity edema. No palpitations. No paroxysmal nocturnal dyspnea. No orthopnea. No lightheadedness or dizziness. No syncopal episodes. Abdominal: No abdominal pain. No nausea, vomiting. No diarrhea. No constipation. No bloody or tarry stools. No loss of appetite. Genitourinary: No dysuria, increased frequency, urgency. No urinary retention. Musculoskeletal: No myalgias. No muscle weakness, no gait dysfunction, no frequent falls. Reports back pain. No neck pain. Integumentary: No wounds, no lesions. No rash or pruritus. No unusual br uising. No change in hair or nails. Neurologic: No aphasia. No facial droop. No change in mentation. No head injury. No headache. No paralysis. No paresthesia. Psychiatric: No depression. No anxiety. No mood swings. Endocrine: No abnormal blood sugars. No weight change. No excessive sweating or thirst. No cold intolerance. ASSESSMENT AND PLAN 1. Pain in the thoracic and lumbar spine regions, multiple compression fracture deformities T 11, T12, L1, L2 that her chronic, degenerative changes. Consult with orthopedic spine appreciated, consult is also in place with pain management. Continue patient on Cymbalta 30 mg twice daily, add [place] 7.5/325 one every 6 hours as needed, Dilaudid 1 mg IV push every 3 hours, Robaxin 750 mg 3 times daily, tramadol. R eye of the thoracic spine has been ordered. 24 Scheduled for kyphoplasty on February 01, involving T10 T12 L1-L2 verbetra 2. Multiple compression fractures possible pathologic. Patient was scheduled o utpatient for PET scan. Consult with oncology. 3. Concern for multiple myeloma. Consult with oncology and they're following, might need bone marrow biopsy one the hospital. 4. Hyperlipidemia. Continue Lipitor 10 mg daily. 5. Intestinal prophylaxis. Protonix. 6. DVT prophylaxis. Heparin subcu. 7. COVID-19 testing negative. Patient has been hospitalized during a pandemic. Patient will be admitted to the hospital for a minimum of 2 night stay. DISCHARGE PLAN Subacute rehab at [facility]. Current Medications Alprazolam (Alprazolam 0.5 Mg Tab) 0.5 mg PO BID PRN PRN Reason: Anxiety Atorvastatin Calcium (Atorvastatin 10 Mg Tab) 10 mg PO DAILY [facility] Last Admin: 02/03/21 09:40 Dose: 10 mg Documented by: Duloxetine HCl (Duloxetine Hcl 30 Mg Capsule.Dr) 30 mg PO BID [facility] Last Admin: 02/03/21 09:41 Dose: 30 mg Documented by: Ergocalciferol (Ergocalciferol 1,250 Mcg (50,000 Iu) Capsule) 1,250 mcg PO Q7D [facility] Last Admin: 01/31/21 11:25 Dose: 1,250 mcg Documented by: Gabapentin (Gabapentin 300 Mg Cap) 300 mg PO [facility] Heparin Sodium (Porcine) (Heparin Sodium,Porcine/Pf 5,000 Unit/0.5 Ml Syringe) 5,000 unit SQ Q12HR [facility] Last Admin: 02/03/21 09:40 Dose: 5,000 unit Documented by: Hydromorphone HCl (Hydromorphone 1 Mg/Ml 1 Ml Syringe) 1 mg IVP Q3HR PRN PRN Reason: Severe Pain Last Admin: 02/01/21 10:54 Dose: 1 mg Documented by: Sodium Chloride (Saline 0.9%) 1,000 mls @ 130 mls/hr IV .Q7H42M [facility] Last Admin: 02/03/21 13:08 Dose: Not Given Documented by: Methocarbamol (Methocarbamol 750 Mg Tab) 750 mg PO TID [facility] Last Admin: 02/03/21 09:40 Dose: 750 mg Documented by: Naloxone HCl (Naloxone 0.4 Mg/Ml 1 Ml Vial) 0.2 mg IV Q2M PRN PRN Reason: Opioid Reversal Oxycodone/Acetaminophen (Oxycodone-Apap 5-325mg 1 Each Tab) 1 each PO Q4HR PRN PRN Reason: moderate Pain Last Admin: 02/03/21 13:11 Dose: 1 each Documented by: Pantoprazole Sodium (Pantoprazole 40 Mg Tablet) 40 mg PO AC-BRKFST [facility] Last Admin: 02/03/21 09:40 Dose: 40 mg Documented by: Polyethylene Glycol (Polyethylene Glycol 3350 17 Gm Powd.Pack) 17 gm PO DAILY [facility] Last Admin: 02/03/21 09:40 Dose: 17 gm Documented by: Tramadol HCl (Tramadol 50 Mg Tab) 50 mg PO Q6H PRN PRN Reason: Pain Last Admin: 02/01/21 20:32 Dose: 50 mg Documented by: Vital Signs Temp 97.9 F 02/03/21 08:00 Pulse 107 H 02/03/21 08:00 Resp 16 02/03/21 08:00 BP 170/85 02/03/21 08:00 Pulse Ox 96 02/03/21 08:00 Intake & Output 02/02/21 02/03/21 02/03/21 18:59 06:59 18:59 Intake Total 118 Output Total 225 225 Balance 118 -225 -225 Intake: Oral 118 Output: Urine 225 225 Other: Voiding Method Urinal # Voids 1 2 # Bowel Movements 1 Objective - Vital Signs Vital signs: Vital Signs Temp 97.9 F 02/03/21 08:00 Pulse 107 H 02/03/21 08:00 Resp 16 02/03/21 08:00 BP 170/85 02/03/21 08:00 Pulse Ox 96 02/03/21 08:00 Intake & Output 02/02/21 02/03/21 02/03/21 18:59 06:59 18:59 Intake Total 118 Output Total 225 225 Balance 118 -225 -225 Intake: Oral 118 Output: Urine 225 225 Other: Voiding Method Urinal # Voids 1 2 # Bowel Movements 1 - Labs CBC & Chem 7: 01/30/21 13:33 01/30/21 13:33 Labs: Microbiology - Last 24 Hours (Table) 02/02/21 11:42 Blood Culture - Preliminary Blood No Growth after 24 hours
[2021-02-03] MEDS: GABAPENTIN 300 MG CAP PO SCH (19:44)
[2021-02-03] MEDS: ALPRAZolam 0.5 MG TAB PO PRN (20:57)
[2021-02-04] MEDS: methocarbamoL 750 MG TAB PO SCH ×3 (08:11→20:29)
[2021-02-04] MEDS: ATORVASTATIN 10 MG TAB PO SCH (08:12)
[2021-02-04] MEDS: PANTOPRAZOLE 40 MG TABLET PO SCH (08:12)
[2021-02-04] MEDS: DULoxetine HCL 30 MG CAPSULE.DR PO SCH ×2 (08:13→20:29)
[2021-02-04] MEDS: HEPARIN SODIUM,PORCINE/PF 5,000 UNIT/0.5 ML SYRINGE SQ SCH ×2 (08:13→20:27)
[2021-02-04] MEDS: polyethylene glycoL 3350 17 GM POWD.PACK PO SCH (08:13)
[2021-02-04 13:28] LABS: Free Lambda Lt Chain Qt, Urine 1.59 mg/dL (0.00-0.38)
[2021-02-04] MEDS: oxyCODONE-APAP 5-325MG 1 EACH TAB PO PRN ×2 (13:39→20:28)
[2021-02-04] MEDS: SODIUM CHLORIDE 0.9% 1,000 ML IV SCH ×2 (13:53→20:26)
[2021-02-04 14:08] LABS: Free Kappa Lt Chain Qnt, Urine 782.82 mg/dL (0.00-3.29)
[2021-02-04 14:17] LABS: Free Kappa Lt Chain Qnt, Serum 123.16 mg/dL (0.33-1.94)
--- NOTE | 2021-02-04 16:44 | P.HPIM ---
History of Present Illness H&P Date: 02/04/21 HISTORY OF PRESENT ILLNESS This is a 75-year-old male patient of Dr. 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 Patient states that he is seen by Dr. Jackson and underwent MRI yesterday. He was heading home but was in such severe pain he decided to come into the emergency center for further evaluation. He states Dr. Martin has been the one managing his pain and his home pain medications have not been working. He does get some improvement of pain when he lays down. The pain is across his lumbar area with spasms. He denies having any numbness or tingling. He usually walks with a walker but this is been very difficult over the past 2 weeks due to loss of strength and increasing pain. Patient has a TLSO brace which he is wearing. A consult has been placed for Dr. Espitia by orthopedic spine. Consult is also in place with pain management. Patient was scheduled for PET scan on by Dr. Melendrez. Lumbar MRI imaging taken at [facility] on 01/30/2021: Inhomogenous bone marrow signal intensity of the regional bony structures which may be related to diffuse osteopenia and fibrofatty changes of aging but if concern for more aggressive process correlate with a whole-body nuclear bone scan. If concern for multiple myeloma correlate with serum CBC and serum protein electrophoresis could be made; multiple compression fracture deformities at T11, T12, L1, and L2 that appear chronic in nature with no bone marrow edema to suggest acute component; mild dextroscoliosis at the thoracolumbar junction; mild levoscoliosis at L3-4; L1-2, L2-3, and L3-4 facet hypertrophy; L4-5 disc osteophyte complex with mild to moderate left neural foraminal narrowing with abutment of the exiting L4 nerve root; L5-S1 discosteophyte complex extending into the right neural foramina with some abutment to the exiting right L5 nerve root; distended colon; enlarged prostate gland. X-rays of the lumbosacral spine taken at [facility] on 01/24/2021: Compression fracture deformities of L1 and L2 with approximately 30% height loss; T12 compression fracture deformity with approximately 10% height loss; possible compression fracture T11; L4-5 degenerative disc disease Nuclear medicine whole-body bone scan taken at [facility] on 01/04/2021: Increased uptake at T7 and T12 02/01/21: Patient is having surgery, for kyphoplasty, for disc involving T10 and T12 L1 L2, by Dr. Jackson. He has no history of CAD CHF CVA, or CK D stage III. Patient is doing well, had never complained of post anesthesia problems in the past. is at bedside, has informed me that she patient needs subacute care, as she cannot take her off Hemoccult home, the just had right knee replacement January this year. Phosphorous, anticipate discharge. Kyphoplasty in the next 2448 hrs. once cleared by orthopedics. EKG was reviewed, normal sinus rhythm without any QT prolongation, vitals are stable, checked for INR, cleared for surgery today, class II anesthesia risk. Revised cardiac risk index of 0. 02/02: Patient still has uncontrolled pain, requires assistance for walking, bone scan, shows small oval lucency stripe femoral neck, and right intratrochanteric region, of the pelvis, small myelomatous lesions difficult to exclude, including the left femoral shaft and lateral intramedullary space. There are small lucencies in the cranium, equivocal and may relate to small venous lakes, there is limited degree for shopping, status post vertebroplasty T10 T12 L1-L2 insurance is quite [id number] for this admission, [phone], extension [phone], ID number [id number], reference #[id number] have called twice on 2 separate occasions, regarding the [id number], on the voicemail can be reached at this time 02/03 and has better pain control, however pain with ambulation, lower back area, with radiation to the suprapubic region, in the groin. Suspect either urinary retention, against L1 radiculopathy, start gabapentin 300 mg at bedtime, awaiting formal approval for inpatient therapy, or subacute rehab. Patient has requested to resume Xanax 0.5 twice a day when necessary PVRs to be checked. Vitals are stable, i called insurance company again for approval, they did not call me 02/04 patient examined at bedside. Patient continues to make improvement. He is answering questions appropriately denies any chest pain or shortness of breath. Back pain has improved. Patient is willing to participate with physical therapy. His pain is better controlled with the current regimen including Cymbalta, Percocet and Robaxin. Follow-up PT evaluation on Saturday to evaluate for patient's mobility. Patient's pain is better controlled while sitting increases as he ambulates. Patient benefit from rehab for increased strength and gait dysfunction before he can be discharged to home with home care. Bone biopsy results are pending. Increased paraproteinemia noted with possible multiple myeloma increased lambda light chains noted. Bone osseous survey performed 02/02 suggestive of small oval lucencies at the lateral right femoral neck and right intertrochanteric region, over U cane to each area along the lateral intraoral medullary space of proximal left femur shaft with rounded lucencies in the calvarium equal and related to small venous lakes Review of systems Constitutional: No fever, no chills, no night sweats. No weight change. No weakness, fatigue or lethargy. No daytime sleepiness. EENT: No headache. No blurred vision or double vision, no loss of vision. No loss of Hearing, no ringing in the ears, no dizziness. No nasal drainage or congestion. No epistaxis. No sore throat. Lungs: No shortness of breath, cough, no sputum production. No wheezing. Cardiovascular: No chest pain, no lower extremity edema. No palpitations. No paroxysmal nocturnal dyspnea. No orthopnea. No lightheadedness or dizziness. No syncopal episodes. Abdominal: No abdominal pain. No nausea, vomiting. No diarrhea. No constipation. No bloody or tarry stools. No loss of appetite. Genitourinary: No dysuria, increased frequency, urgency. No urinary retention. Musculoskeletal: Increased bilateral lower extremity weakness, with gait dysfunction, no frequent falls. Reports back pain. No neck pain. Integumentary: No wounds, no lesions. No rash or pruritus. No unusual bruising. No change in hair or nails. Neurologic: No aphasia. No facial droop. No change in mentation. No head injury. No headache. No paralysis. No paresthesia. Psychiatric: No depression. No anxiety. No mood swings. Endocrine: No abnormal blood sugars. No weight change. No excessive sweating or thirst. No cold intolerance. ASSESSMENT AND PLAN 1. Pain in the thoracic and lumbar spine regions, multiple compression fracture deformities T 11, T12, L1, L2 that her chronic, degenerative changes. Status post kyphoplasty T10 T12 L1 and L2 by Dr. Jackson. Pain controlled on on Cymbalta 30 mg twice daily, Percocet 7.5/325 every 6 hours, Dilaudid 1 mg IV push every 3 hours, Robaxin 750 mg 3 times daily, tramadol. 2. Multiple compression fractures possible pathologic. Patient was scheduled outpatient for PET scan. Consult with oncology. 3. Reduced lambda light chains with Concern for multiple myeloma. Marrow biopsy pending. Patient will follow outpatient with oncology for treatment options 4. Hyperlipidemia. Continue Lipitor 10 mg daily. 5. Intestinal prophylaxis. Protonix. 6. DVT prophylaxis. Heparin subcu. 7. COVID-19 testing negative. Patient has been hospitalized during a pandemic. DISCHARGE PLAN Subacute rehab at [facility]. Past Medical History Past Medical History: Cancer, GERD/Reflux, Hyperlipidemia, Osteoarthritis (OA) Additional Past Medical History / Comment(s): hx. liposarcoma. 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 History of Any Multi-Drug Resistant Organisms: None Reported Additional Past Surgical History / Comment(s): cancerous tumor removed from left side of abdomen Past Anesthesia/Blood Transfusion Reactions: No Reported Reaction Past Psychological History: No Psychological Hx Reported Smoking Status: Former smoker Past Alcohol Use History: Occasional Additional Past Alcohol Use History / Comment(s): Pt smoked for 1 year and quit a long time ago. Past Drug Use History: None Reported Medications and Allergies Home Medications Medication Instructions Recorded Confirmed Type Rosuvastatin Calcium [Crestor] 5 mg PO DIRECTED 08/11/13 01/30/21 History Cyclobenzaprine [Flexeril] 5 mg PO BID PRN 01/30/21 01/30/21 History DULoxetine HCL [Cymbalta] 30 mg PO DAILY 01/30/21 01/30/21 History Hydrocodone/Acetaminophen [[place] 1 tab PO Q4HR PRN 01/30/21 01/30/21 History 5-325] traMADol HCL [Ultram] 50 mg PO Q6H PRN 01/30/21 01/30/21 History oxyCODONE HCL/ACETAMINOPHEN 1 tab PO Q4HR PRN 3 Days #42 tab 02/02/21 Rx [Percocet 5-325 mg] ALPRAZolam [Xanax] 0.5 mg PO BID 02/03/21 02/03/21 History Allergies Allergy/AdvReac Type Severity Reaction Status Date / Time No Known Allergies Allergy Verified 02/02/21 18:14 Physical Exam Vitals: Vital Signs Temp Pulse Pulse Pulse Resp BP BP 02/04/21 15:25 97.4 F L 91 16 155/78 02/04/21 08:00 98.2 F 90 18 171/86 02/04/21 02:31 98.9 F 100 18 157/85 02/03/21 19:44 79 92 103 H 18 02/03/21 18:55 97.7 F 103 H 18 130/66 Pulse Ox 02/04/21 15:25 94 L 02/04/21 08:00 94 L 02/04/21 02:31 94 L 02/03/21 19:44 02/03/21 18:55 97 Intake and Output 02/04/21 02/04/21 02/04/21 06:59 14:59 22:59 Intake Total 360 Balance 360 Intake: Oral 360 Other: Voiding Method Urinal Results CBC & Chem 7: 01/30/21 13:33 01/30/21 13:33 Labs: Abnormal Lab Results - Last 24 Hours (Table) 02/01/21 02/02/21 Range/Units 10:03 13:50 U Free [place] Light Ch 782.82 H (0.00-3.29) mg/dL U Free Lambda Light Ch 1.59 H (0.00-0.38) mg/dL Free [place] LC, Quant 123.16 H (0.33-1.94) mg/dL Free Lambda LC, Quant 0.35 L (0.57-2.63) mg/dL Microbiology - Last 24 Hours (Table) 02/02/21 11:42 Blood Culture - Preliminary Blood No Growth after 48 hours Thrombosis Risk Factor Assmnt - Choose All That Apply Each Factor Represents 1 point: Obesity (BMI >25) Each Risk Factor Represents 2 Points: Major surgery Each Risk Factor Represents 3 Points: Age 75 years or older Thrombosis Risk Factor Assessment Total Risk Factor Score: 6 Thrombosis Risk Factor Assessment Level: High Risk
[2021-02-04 16:50] LABS: Methylmalonic Acid 0.19 umol/L (<0.40)
[2021-02-04] MEDS: dexAMETHasone 4 MG TAB PO SCH (17:23)
[2021-02-04] MEDS: GABAPENTIN 300 MG CAP PO SCH (20:28)
[2021-02-04] MEDS: ALPRAZolam 0.5 MG TAB PO PRN (22:44)
[2021-02-04] MEDS: traMADol 50 MG TAB PO PRN (22:45)
--- NOTE | 2021-02-04 23:45 | P.PN ---
Subjective Progress Note Date: 02/04/21 Pt reports ongoing improvement in back pain, and mobility with PT, post procedure. No f/c/n/v/unusual bleeding or bruising Objective - Vital Signs Vital signs: Vital Signs Temp 97.7 F 02/04/21 19:25 Pulse 89 02/04/21 19:26 Resp 16 02/04/21 15:25 BP 161/85 02/04/21 19:25 Pulse Ox 96 02/04/21 19:25 Intake & Output 02/04/21 02/04/21 02/05/21 06:59 18:59 06:59 Intake Total 360 Output Total 150 Balance -150 360 Intake: Oral 360 Output: Urine 150 Other: Voiding Method Urinal Urinal Bedside Commode Urinal # Voids 0 2 1 # Bowel Movements 1 - Constitutional General appearance: Present: no acute distress - EENT Eyes: Present: EOMI ENT: Present: hearing grossly normal, normal oropharynx - Respiratory Respiratory: bilateral: CTA - Cardiovascular Rhythm: regular Heart sounds: normal: S1, S2 - Gastrointestinal General gastrointestinal: Present: normal bowel sounds, soft - Integumentary Integumentary: Present: normal - Neurologic Neurologic: Present: CNII-XII intact - Musculoskeletal Musculoskeletal: Present: strength equal bilaterally - Psychiatric Psychiatric: Present: A&O x's 3, appropriate affect - Labs CBC & Chem 7: 01/30/21 13:33 01/30/21 13:33 Labs: Abnormal Lab Results - Last 24 Hours (Table) 02/01/21 02/02/21 Range/Units 10:03 13:50 U Free [place] Light Ch 782.82 H (0.00-3.29) mg/dL U Free Lambda Light Ch 1.59 H (0.00-0.38) mg/dL Free [place]iva LC, Quant 123.16 H (0.33-1.94) mg/dL Free Lambda LC, Quant 0.35 L (0.57-2.63) mg/dL Microbiology - Last 24 Hours (Table) 02/02/21 11:42 Blood Culture - Preliminary Blood No Growth after 48 hours Assessment and Plan (1) Multiple myeloma Narrative/Plan: Pt's labs, serum and urine, as well as bone survey are quite consistent with MM. Formal pathologic diagnosis will hopefully be obtained from bone biopsy - The above , and implications were d/w pt and family in detail '- Pt will be started on pulse Decadron, and then transitioned to a specific MM regimen such as RVD, once formal path is available - He will also startZometa - The above plan was d/w IM and Ortho spine in detail. Ortho spine indicated no contraindication to start Dex and IV bisphosphonate Current Visit: Yes Status: Acute Code(s): C90.00 - MULTIPLE MYELOMA NOT HAVING ACHIEVED REMISSION SNOMED Code(s): 545382591 (2) Intractable back pain Narrative/Plan: Due to compression fx, secondary to MM. S/P kyphoplasty. Pt is improving with PT post procedure,more significantly since 02/03. Continue management per IM and Ortho spine. D/W IM - pt will go to IP rehab vs ECF vs even possibly home, depending upon his progress Current Visit: Yes Status: Acute Priority: High Code(s): M54.9 - DORSALGIA, UNSPECIFIED SNOMED Code(s): 858898656
[2021-02-05] MEDS ORDERED: ZOLEDRONIC ACID 4 MG in SODIUM CHLORIDE 0.9% 100 ML IV ONE ×2
[2021-02-05] MEDS: SODIUM CHLORIDE 0.9% 1,000 ML IV SCH ×3 (00:14→18:27)
[2021-02-05] MEDS: oxyCODONE-APAP 5-325MG 1 EACH TAB PO PRN (09:01)
[2021-02-05] MEDS: dexAMETHasone 4 MG TAB PO SCH (09:01)
[2021-02-05] MEDS: DULoxetine HCL 30 MG CAPSULE.DR PO SCH ×2 (09:01→20:09)
[2021-02-05] MEDS: PANTOPRAZOLE 40 MG TABLET PO SCH (09:02)
[2021-02-05] MEDS: methocarbamoL 750 MG TAB PO SCH ×3 (09:02→21:00)
[2021-02-05] MEDS: polyethylene glycoL 3350 17 GM POWD.PACK PO SCH (09:02)
[2021-02-05] MEDS: ATORVASTATIN 10 MG TAB PO SCH (09:02)
[2021-02-05] MEDS: HEPARIN SODIUM,PORCINE/PF 5,000 UNIT/0.5 ML SYRINGE SQ SCH ×2 (09:02→20:08)
--- NOTE | 2021-02-05 10:38 | P.PN ---
Subjective Progress Note Date: 02/05/21 The patient's blood pressure was increased, after starting steroids. He states that he felt somewhat weaker after the first dose of steroids. No history of any loss of sensation in his lower extremities, or of bowel or bladder. Appetite is fair. Objective - Vital Signs Vital signs: Vital Signs Temp 98.3 F 02/05/21 07:40 Pulse 92 02/05/21 07:40 Resp 18 02/05/21 07:40 BP 174/91 02/05/21 07:40 Pulse Ox 93 L 02/05/21 07:40 Intake & Output 02/04/21 02/05/21 02/05/21 18:59 06:59 18:59 Intake Total 360 Balance 360 Intake: Oral 360 Other: Voiding Method Urinal Bedside Commode Bedside Commode Urinal Urinal # Voids 2 4 - Constitutional General appearance: Present: no acute distress - EENT Eyes: Present: EOMI ENT: Present: hearing grossly normal, normal oropharynx - Respiratory Respiratory: bilateral: CTA - Cardiovascular Rhythm: regular Heart sounds: normal: S1, S2 - Gastrointestinal General gastrointestinal: Present: normal bowel sounds, soft - Integumentary Integumentary: Present: normal - Neurologic Neurologic: Present: CNII-XII intact - Musculoskeletal Musculoskeletal: Present: strength equal bilaterally - Psychiatric Psychiatric: Present: A&O x's 3, appropriate affect - Labs CBC & Chem 7: 01/30/21 13:33 01/30/21 13:33 Labs: Abnormal Lab Results - Last 24 Hours (Table) 02/01/21 02/02/21 Range/Units 10:03 13:50 U Free [place] Light Ch 782.82 H (0.00-3.29) mg/dL U Free [place] Light Ch 1.59 H (0.00-0.38) mg/dL Free [place] LC, Quant 123.16 H (0.33-1.94) mg/dL Free [place]ambda LC, Quant 0.35 L (0.57-2.63) mg/dL Microbiology - Last 24 Hours (Table) 02/02/21 11:42 Blood Culture - Preliminary Blood No Growth after 48 hours Assessment and Plan (1) Multiple myeloma Narrative/Plan: Formal pathologic diagnosis is pending, but labs and bone survey are quite consistent with the same. Immunofixation is pending to identify the exact type of monoclonal protein. - Patient was started on pulse dose steroids yesterday. He reports feeling somewhat weaker with the steroids but that is more like due to the increase in blood pressure. - Continue post Decadron for 4 days on and 4 days off, till patient is able to start him on specific regimen - Labs ordered today to check blood counts, as well as chem panel and labs for tumor lysis. - The patient has received a dose of Zometa for bone involvement Current Visit: Yes Status: Acute Code(s): C90.00 - MULTIPLE MYELOMA NOT HAVING ACHIEVED REMISSION SNOMED Code(s): 281981303 (2) Intractable back pain Narrative/Plan: Partially improved since kyphoplasty, with slow but reasonable progress. Ending on how he is doing, discharge disposition will be decided, between home vs inpatient rehab vs ECF Current Visit: Yes Status: Acute Priority: High Code(s): M54.9 - DORSALGIA, UNSPECIFIED SNOMED Code(s): 902301381
--- NOTE | 2021-02-05 11:23 | P.PN ---
Subjective Progress Note Date: 02/05/21 This is a 75-year-old male who was admitted for back pain. Patient is status post vertebral body biopsy and kyphoplasty at T10 T12 L1 and L2 for compression fractures by Dr. Jackson. This is postoperative day #4 and patient is seen and evaluated at bedside today. Patient states that his pain is better controlled this morning. Patient denies any new complaints today. Objective - Vital Signs Vital signs: Vital Signs Temp 98.3 F 02/05/21 07:40 Pulse 92 02/05/21 07:40 Resp 18 02/05/21 07:40 BP 174/91 02/05/21 07:40 Pulse Ox 93 L 02/05/21 07:40 Intake & Output 02/04/21 02/05/21 02/05/21 18:59 06:59 18:59 Intake Total 360 Balance 360 Intake: Oral 360 Other: Voiding Method Urinal Bedside Commode Bedside Commode Urinal Urinal # Voids 2 4 - Exam On exam patient is resting comfortably in a chair in no acute distress. Patient is alert and oriented 3. Dressings are clean, dry and intact. Patient moves arms and legs freely. Sensation intact. Neurovascular status and circulatory status are intact. - Labs CBC & Chem 7: 01/30/21 13:33 01/30/21 13:33 Labs: Abnormal Lab Results - Last 24 Hours (Table) 02/01/21 02/02/21 Range/Units 10:03 13:50 U Free [place] Light Ch 782.82 H (0.00-3.29) mg/dL U Free [place] Light Ch 1.59 H (0.00-0.38) mg/dL Free [place] LC, Quant 123.16 H (0.33-1.94) mg/dL Free [place]ambda LC, Quant 0.35 L (0.57-2.63) mg/dL Microbiology - Last 24 Hours (Table) 02/02/21 11:42 Blood Culture - Preliminary Blood No Growth after 48 hours Assessment and Plan Assessment: Status post vertebral body biopsy and kyphoplasty at T10 T12 L1 and L2 for compression fractures Plan: 1. Continue routine postoperative care and pain control. 2. Continue physical therapy for mobilization. Recommend use of brace when he is out of bed. 3. Patient is clear for discharge from an orthopedic standpoint once cleared medically.
[2021-02-05 11:33] LABS: Basophils % (A) 0 %; Eosinophils % (A) 0 %; HCT 33.2 % (39.0-53.0); HGB 10.5 gm/dL (13.0-17.5); Lymphocytes # (A) 0.8 k/uL (1.0-4.8); Lymphocytes % (A) 21 %; MCH 32.6 pg (25.0-35.0); MCHC 31.6 g/dL (31.0-37.0); MCV 103.1 fL (80.0-100.0); Macrocytosis Slight; Mean Platelet Volume 8.6; Monocytes # (A) 0.2 k/uL (0-1.0); Monocytes % (A) 5 %; Neutrophils # (A) 2.8 k/uL (1.3-7.7); Neutrophils % (A) 72 %; Platelet Count 229 k/uL (150-450); RBC 3.22 m/uL (4.30-5.90); RDW 13.4 % (11.5-15.5); WBC 3.9 k/uL (3.8-10.6)
[2021-02-05 11:44] LABS: ALT 73 U/L (4-49); AST 77 U/L (17-59); African American GFR (CKD) 88 (>60 ml/min/1.73 sqM); Albumin 2.7 g/dL (3.5-5.0); Albumin/Globulin Ratio 0.5; Alkaline Phosphatase 290 U/L (38-126); Anion Gap 8 mmol/L; Blood Urea Nitrogen 17 mg/dL (9-20); Calcium 8.8 mg/dL (8.4-10.2); Carbon Dioxide 22 mmol/L (22-30); Chloride 107 mmol/L (98-107); Globulin 5.3 g/dL; Glucose 132 mg/dL (74-99); Non-African American GFR(CKD) 77 (>60 ml/min/1.73 sqM); Phosphorus 3.2 mg/dL (2.5-4.5); Potassium 3.9 mmol/L (3.5-5.1); Sodium 137 mmol/L (137-145); Total Bilirubin 0.3 mg/dL (0.2-1.3); Uric Acid 4.4 mg/dL (3.5-8.5)
[2021-02-05] MEDS ORDERED: LOSARTAN 25 MG TAB PO SCH (13:30)
[2021-02-05] MEDS ORDERED: LOSARTAN 25 MG TAB PO STA (17:30)
--- NOTE | 2021-02-05 17:32 | P.PN ---
Subjective Progress Note Date: 02/05/21 HISTORY OF PRESENT ILLNESS This is a 75-year-old male patient of Dr. 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 Patient states that he is seen by Dr. Jackson and underwent MRI yesterday. He was heading home but was in such severe pain he decided to come into the emergency center for further evaluation. He states Dr. Martin has been the one managing his pain and his home pain medications have not been working. He does get some improvement of pain when he lays down. The pain is across his lumbar area with spasms. He denies having any numbness or tingling. He usually walks with a walker but this is been very difficult over the past 2 weeks due to loss of strength and increasing pain. Patient has a TLSO brace which he is wearing. A consult has been placed for Dr. Espitia by orthopedic spine. Consult is also in place with pain management. Patient was scheduled for PET scan on by Dr. Melendrez. Lumbar MRI imaging taken at [facility] on 01/30/2021: Inhomogenous bone marrow signal intensity of the regional bony structures which may be related to diffuse osteopenia and fibrofatty changes of aging but if con cern for more aggressive process correlate with a whole-body nuclear bone scan. If concern for multiple myeloma correlate with serum CBC and serum protein electrophoresis could be made; multiple compression fracture deformities at T11, T12, L1, and L2 that appear chronic in nature with no bone marrow edema to suggest acute component; mild dextroscoliosis at the thoracolumbar junction; mild levoscoliosis at L3-4; L1-2, L2-3, and L3-4 facet hypertrophy; L4-5 disc osteophyte complex with mild to moderate left neural foraminal narrowing with abutment of the exiting L4 nerve root; L5-S1 discosteophyte complex extending into the right neural foramina with some abutment to the exiting right L5 nerve root; distended colon; enlarged prostate gland. X-rays of the lumbosacral spine taken at [facility] on 01/24/2021: Compression fracture deformities of L1 and L2 with approximately 30% height loss; T12 compression fracture deformity with approximately 10% height loss; possible compression fracture T11; L4-5 degenerative disc disease Nuclear medicine whole-body bone scan taken at [facility] on 01/04/2021: Increased uptake at T7 and T12 02/01/21: Patient is having surgery, for kyphoplasty, for disc involving T10 and T12 L1 L2, by Dr. Jackson. He has no history of CAD CHF CVA, or CK D stage III. Patient is doing well, had never complained of post anesthesia problems in the past. is at bedside, has informed me that she patient needs subacute care, as she cannot take her off [facility] home, the just had right knee replacement January this year. Phosphorous, anticipate discharge. Kyphoplasty in the next 2448 hrs. once cleared by orthopedics. EKG was reviewed, normal sinus rhythm without any QT prolongation, vitals are stable, checked for INR, cleared for surgery today, class II anesthesia risk. Revised cardiac risk index of 0. 02/02: Patient still has uncontrolled pain, requires assistance for walking, bone scan, shows small oval lucency stripe femoral neck, and right intratrochanteric region, of the pelvis, small myelomatous lesions difficult to exclude, including the left femoral shaft and lateral intramedullary space. There are small lucencies in the cranium, equivocal and may relate to small venous lakes, there is limited degree for shopping, status post vertebroplasty T10 T12 L1-L2 insurance is quite [id number] for this admission, [phone], extension [phone], ID number [id number], reference #[id number] have called twice on 2 separate occasions, regarding the [id number], on the voicemail can be reached at this time 02/03 and has better pain control, however pain with ambulation, lower back area, with radiation to the suprapubic region, in the groin. Suspect either urinary retention, against L1 radiculopathy, start gabapentin 300 mg at bedtime, awaiting formal approval for inpatient therapy, or subacute rehab. Patient has requested to resume Xanax 0.5 twice a day when necessary PVRs to be checked. Vitals are stable, i called insurance company again for approval, they did not call me 02/04 patient examined at bedside. Patient continues to make improvement. He is answering questions appropriately denies any chest pain or shortness of breath. Back pain has improved. Patient is willing to participate with physical therapy. His pain is better controlled with the current regimen including Cymbalta, Percocet and Robaxin. Follow-up PT evaluation on Saturday to evaluate for patient's mobility. Patient's pain is better controlled while sitting increases as he ambulates. Patient benefit from rehab for increased strength and gait dysfunction before he can be discharged to home with home care. Bone biopsy results are pending. Increased paraproteinemia noted with possible multiple myeloma increased lambda light chains noted. Bone osseous survey performed 02/02 suggestive of small oval lucencies at the lateral right femoral neck and right intertrochanteric region, over U cane to each area along the lateral intraoral medullary space of proximal left femur shaft with rounded lucencies in the calvarium equal and related to small venous lakes 02/05 patient examined bedside. Denies any shortness of breath or chest pain. He does endorse increased weakness and balance abnormality. Patient is a one person assist and needs supervision while walking with a walker due to increasing gait instability. Repeat PT assessment tomorrow for evaluation for subacute rehab. Vitals are stable afebrile pulse 90 respiratory rate 18 blood pressure 154/80 patient received a dose of zoledronic acid on 02/05. Labs reviewed hemoglobin stable at 10.5 BUN 17 creatinine 0.9 liver enzymes mildly elevated with AST 77 ALT 73 alkaline phosphatase 290. Ultrasound abdomen ordered to evaluate liver enzyme abnormality. Losartan initiated at 50 mg by mouth daily Review of systems Constitutional: No fever, no chills, no night sweats. No weight change. No weakness, fatigue or lethargy. No daytime sleepiness. EENT: No headache. No blurred vision or double vision, no loss of vision. No loss of Hearing, no ringing in the ears, no dizziness. No nasal drainage or congestion. No epistaxis. No sore throat. Lungs: No shortness of breath, cough, no sputum production. No wheezing. Cardiovascular: No chest pain, no lower extremity edema. No palpitations. No paroxysmal nocturnal dyspnea. No orthopnea. No lightheadedness or dizziness. No syncopal episodes. Abdominal: No abdominal pain. No nausea, vomiting. No diarrhea. No constipation. No bloody or tarry stools. No loss of appetite. Genitourinary: No dysuria, increased frequency, urgency. No urinary retention. Musculoskeletal: Increased bilateral lower extremity weakness, with gait dysfunction, no frequent falls. Reports back pain. No neck pain. Integumentary: No wounds, no lesions. No rash or pruritus. No unusual bruising. No change in hair or nails. Neurologic: No aphasia. No facial droop. No change in mentation. No head injury. No headache. No paralysis. No paresthesia. Psychiatric: No depression. No anxiety. No mood swings. Endocrine: No abnormal blood sugars. No weight change. No excessive sweating or thirst. No cold intolerance. - Constitutional General appearance: cooperative, no acute distress, obese - EENT Eyes: anicteric sclerae, PERRLA, normal appearance ENT: hearing grossly normal - Neck Neck: no lymphadenopathy, normal ROM, no other, no rigidity, no stridor, no thyromegaly - Respiratory Respiratory: bilateral: CTA, negative: diminished, dullness, rales, rhonchi - Cardiovascular Rhythm: regular Heart sounds: normal: S1, S2 Abnormal Heart Sounds: no systolic murmur, no diastolic murmur, no rub, no S3 Gallop, no S4 Gallop, no click, no other - Gastrointestinal General gastrointestinal: normal bowel sounds, soft - Integumentary Integumentary: no rash, dressing clean and dry and intact - Neurologic Neurologic: No sensory deficit bilaterally decreased weakness 4+ - Musculoskeletal Musculoskeletal: gait staggering, strength equal bilaterally, sensation intact - Psychiatric Psychiatric: A&O x's 3, appropriate affect ASSESSMENT AND PLAN 1. Pain in the thoracic and lumbar spine regions, multiple compression fracture deformities T 11, T12, L1, L2 that her chronic, degenerative changes. Status post kyphoplasty T10 T12 L1 and L2 by Dr. Jackson. Pain controlled on on Cymbalta 30 mg twice daily, Percocet 7.5/325 every 6 hours, Dilaudid 1 mg IV push every 3 hours, Robaxin 750 mg 3 times daily, tramadol. Continue to wear brace when he is out of bed 2. Multiple compression fractures possible pathologic. Patient was scheduled outpatient for PET scan. Consult with oncology. 3. Reduced lambda light chains with Concern for multiple myeloma. Marrow biopsy pending. Patient will follow outpatient with oncology for treatment options 4. Hyperlipidemia. Continue Lipitor 10 mg daily. 5. Intestinal prophylaxis. Protonix. 6. DVT prophylaxis. Heparin subcu. 7. COVID-19 testing negative. Patient has been hospitalized during a pandemic. DISCHARGE PLAN Subacute rehab at [facility]. Objective - Vital Signs Vital signs: Vital Signs Temp 98.2 F 02/05/21 14:00 Pulse 90 02/05/21 14:00 Resp 18 02/05/21 14:00 BP 154/80 02/05/21 14:00 Pulse Ox 93 L 02/05/21 14:00 Intake & Output 02/04/21 02/05/21 02/05/21 18:59 06:59 18:59 Intake Total 360 Balance 360 Intake: Oral 360 Other: Voiding Method Urinal Bedside Commode Bedside Commode Urinal Urinal # Voids 2 4 - Labs CBC & Chem 7: 02/05/21 11:05 02/05/21 11:05 Labs: Abnormal Lab Results - Last 24 Hours (Table) 02/05/21 02/05/21 Range/Units 11:05 11:05 RBC 3.22 L (4.30-5.90) m/uL Hgb 10.5 L (13.0-17.5) gm/dL Hct 33.2 L (39.0-53.0) % MCV 103.1 H (80.0-100.0) fL Lymphocytes # 0.8 L (1.0-4.8) k/uL Glucose 132 H (74-99) mg/dL AST 77 H (17-59) U/L ALT 73 H (4-49) U/L Alkaline Phosphatase 290 H (38-126) U/L Albumin 2.7 L (3.5-5.0) g/dL Microbiology - Last 24 Hours (Table) 02/02/21 11:42 Blood Culture - Preliminary Blood No Growth after 72 hours
--- NOTE | 2021-02-05 18:26 | US ---
EXAMINATION TYPE: US abdomen limited DATE OF EXAM: 02/05/2021 COMPARISON: CT abdomen/pelvis 01/31/2021 CLINICAL HISTORY: abnorml liver enzymes. Abnormal LFT's EXAM MEASUREMENTS: Liver Length: 19.0 cm Gallbladder Wall: 0.3 cm CBD: 0.3 cm Right Kidney: 12.4 x 4.7 x 5.5 cm Pancreas: Obscured by bowel gas Liver: Enlarged Gallbladder: Possible 4mm gallstone, wall thickness upper limits of normal- pt unable to roll LLD du e to fracture back Evidence for sonographic Martinez's sign: No CBD: wnl Right Kidney: wnl, lower pole gassed out Possible right pleural effusion IMPRESSION: 1. Possible cholelithiasis without sonographic evidence of acute cholecystitis. 2. Small right pleural effusion.
[2021-02-05] MEDS: GABAPENTIN 300 MG CAP PO SCH (20:09)
[2021-02-05] MEDS: ALPRAZolam 0.5 MG TAB PO PRN (20:09)
[2021-02-06] MEDS: SODIUM CHLORIDE 0.9% 1,000 ML IV SCH ×3 (02:11→19:35)
[2021-02-06] MEDS: HEPARIN SODIUM,PORCINE/PF 5,000 UNIT/0.5 ML SYRINGE SQ SCH ×2 (07:43→21:22)
[2021-02-06] MEDS: DULoxetine HCL 30 MG CAPSULE.DR PO SCH ×2 (07:44→21:22)
[2021-02-06] MEDS: LOSARTAN 50 MG TAB PO SCH (07:44)
[2021-02-06] MEDS: PANTOPRAZOLE 40 MG TABLET PO SCH (07:44)
[2021-02-06] MEDS: dexAMETHasone 4 MG TAB PO SCH (07:44)
[2021-02-06] MEDS: ATORVASTATIN 10 MG TAB PO SCH (07:45)
[2021-02-06] MEDS: polyethylene glycoL 3350 17 GM POWD.PACK PO SCH (07:45)
[2021-02-06] MEDS: oxyCODONE-APAP 5-325MG 1 EACH TAB PO PRN (08:21)
--- NOTE | 2021-02-06 08:23 | P.PN ---
Subjective Progress Note Date: 02/06/21 This is a 75-year-old male who was admitted for back pain. Patient is status post vertebral body biopsy and kyphoplasty at T10 T12 L1 and L2 for compression fractures by Dr. Jackson. This is postoperative day #5 and patient is seen and evaluated at bedside today. Patient states that his pain is well controlled this morning. Patient denies any new complaints today. Objective - Vital Signs Vital signs: Vital Signs Temp 98 F 02/06/21 07:40 Pulse 89 02/06/21 07:40 Resp 18 02/06/21 07:40 BP 172/88 02/06/21 07:40 Pulse Ox 94 L 02/06/21 02:00 Intake & Output 02/05/21 02/06/21 02/06/21 18:59 06:59 18:59 Output Total 1 300 Balance -1 -300 Output: Urine 1 300 Emesis 0 Other: Voiding Method Bedside Commode Bedside Commode Urinal Urinal # Bowel Movements 1 - Exam On exam patient is resting comfortably in bed in no acute distress. Patient is alert and oriented 3. Patient moves arms and legs freely. Sensation intact. Neurovascular status and circulatory status are intact. - Labs CBC & Chem 7: 02/05/21 11:05 02/05/21 11:05 Labs: Abnormal Lab Results - Last 24 Hours (Table) 02/05/21 02/05/21 Range/Units 11:05 11:05 RBC 3.22 L (4.30-5.90) m/uL Hgb 10.5 L (13.0-17.5) gm/dL Hct 33.2 L (39.0-53.0) % MCV 103.1 H (80.0-100.0) fL Lymphocytes # 0.8 L (1.0-4.8) k/uL Glucose 132 H (74-99) mg/dL AST 77 H (17-59) U/L ALT 73 H (4-49) U/L Alkaline Phosphatase 290 H (38-126) U/L Albumin 2.7 L (3.5-5.0) g/dL Microbiology - Last 24 Hours (Table) 02/02/21 11:42 Blood Culture - Preliminary Blood No Growth after 72 hours Assessment and Plan Assessment: Status post vertebral body biopsy and kyphoplasty at T10 T12 L1 and L2 for compression fractures Plan: 1. Continue routine postoperative care and pain control. 2. Continue physical therapy for mobilization. Recommend use of brace when he is out of bed. 3. Patient is clear for discharge from an orthopedic standpoint once cleared medically.
[2021-02-06 11:30] LABS: African American GFR (CKD) 95.1 (60.0-200.0); Albumin 2.2 g/dL (3.8-4.9); Albumin/Globulin Ratio 0.47 (1.60-3.17); Anion Gap 6.4 mmol/L (10.00-18.00); BUN/Creat Ratio 24.11 Ratio (12.00-20.00); Blood Urea Nitrogen 21.7 mg/dL (9.0-27.0); Carbon Dioxide 23.6 mmol/L (20.0-27.5); Globulin 4.7 g/dL (1.6-3.3); Non-African American GFR(CKD) 82.1 (60.0-200.0); Phosphorus 2.4 mg/dL (2.4-5.1); Potassium 3.9 mmol/L (3.5-5.5); Total Bilirubin 0.4 mg/dL (0.30-1.20); Total Protein 6.9 g/dL (6.2-8.2); Uric Acid 3.7 mg/dL (3.7-8.7)
--- NOTE | 2021-02-06 13:02 | P.DS ---
Providers Date of admission: 01/31/21 13:14 Attending physician: Linda Cortez Consults: 01/30/21 15:50 Consult Physician Urgent Consulting Provider: Margaux Landon Consult Reason/Comments: intractable back pain Do you want consulting provider notified?: Yes Consult Physician Urgent Consulting Provider: Frederick Jackson Consult Reason/Comments: back pain Do you want consulting provider notified?: Yes 01/31/21 11:43 Consult Physician Urgent Consulting Provider: Michael Espitia Consult Reason/Comments: Evaluate infiltrative process/metastatic disease/multiple myeloma Do you want consulting provider notified?: Yes 02/02/21 09:02 Consult Physician Routine Consulting Provider: Woody Gautam Consult Reason/Comments: Possible rehab placement Do you want consulting provider notified?: Yes Primary care physician: [facility] Course: HISTORY OF PRESENT ILLNESS This is a 75-year-old male patient of Dr. 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 Patient states that he is seen by Dr. Jackson and underwent MRI yesterday. He was heading home but was in such severe pain he decided to come into the emergency center for further evaluation. He states Dr. Martin has been the one managing his pain and his home pain medications have not been working. He does get some improvement of pain when he lays down. The pain is across his lumbar area with spasms. He denies having any numbness or tingling. He usually walks with a walker but this is been very difficult over the past 2 weeks due to loss of strength and increasing pain. Patient has a TLSO brace which he is wearing. A consult has been placed for Dr. Espitia by orthopedic spine. Consult is also in place with pain management. Patient was scheduled for PET scan on by Dr. Melendrez. Lumbar MRI imaging taken at [facility] on 01/30/2021: Inhomogenous bone marrow signal intensity of the regional bony structures which may be related to diffuse osteopenia and fibrofatty changes of aging but if concern for more aggressive process correlate with a whole-body nuclear bone scan. If concern for multiple myeloma correlate with serum CBC and serum protein electrophoresis could be made; multiple compression fracture deformities at T11, T12, L1, and L2 that appear chronic in nature with no bone marrow edema to suggest acute component; mild dextroscoliosis at the thoracolumbar junction; mild levoscoliosis at L3-4; L1-2, L2-3, and L3-4 facet hypertrophy; L4-5 disc osteophyte complex with mild to moderate left neural foraminal narrowing with abutment of the exiting L4 nerve root; L5-S1 discosteophyte complex extending into the right neural foramina with some abutment to the exiting right L5 nerve root; distended colon; enlarged prostate gland. X-rays of the lumbosacral spine taken at [facility] on 01/24/2021: Compression fracture deformities of L1 and L2 with approximately 30% height loss; T12 compression fracture deformity with approximately 10% height loss; possible compression fracture T11; L4-5 degenerative disc disease Nuclear medicine whole-body bone scan taken at [facility] on 01/04/2021: Increased uptake at T7 and T12 02/01/21: Patient is having surgery, for kyphoplasty, for disc involving T10 and T12 L1 L2, by Dr. Jackson. He has no history of CAD CHF CVA, or CK D stage III. Patient is doing well, had never complained of post anesthesia problems in the past. is at bedside, has informed me that she patient needs subacute care, as she cannot take her off [facility] home, the just had right knee replacement January this year. Phosphorous, anticipate discharge. Kyphoplasty in the next 2448 hrs. once cleared by orthopedics. EKG was reviewed, normal sinus rhythm without any QT prolongation, vitals are stable, checked for INR, cleared for surgery today, class II anesthesia risk. Revised cardiac risk index of 0. 02/02: Patient still has uncontrolled pain, requires assistance for walking, bone scan, shows small oval lucency stripe femoral neck, and right intratrochanteric region, of the pelvis, small myelomatous lesions difficult to exclude, including the left femoral shaft and lateral intramedullary space. There are small lucencies in the cranium, equivocal and may relate to small venous lakes, there is limited degree for shopping, status post vertebroplasty T10 T12 L1-L2 insurance is quite [id number] for this admission, [phone], extension [phone], ID number [id number], reference #[id number] have called twice on 2 separate occasions, regarding the [id number], on the voicemail can be reached at this time 02/03 and has better pain control, however pain with ambulation, lower back area, with radiation to the suprapubic region, in the groin. Suspect either urinary retention, against L1 radiculopathy, start gabapentin 300 mg at bedtime, awaiting formal approval for inpatient therapy, or subacute rehab. Patient has requested to resume Xanax 0.5 twice a day when necessary PVRs to be checked. Vitals are stable, i called insurance company again for approval, they did not call me 02/04 patient examined at bedside. Patient continues to make improvement. He is answering questions appropriately denies any chest pain or shortness of breath. Back pain has improved. Patient is willing to participate with physical therapy. His pain is better controlled with the current regimen including Cymbalta, Percocet and Robaxin. Follow-up PT evaluation on Saturday to evaluate for patient's mobility. Patient's pain is better controlled while sitting increases as he ambulates. Patient benefit from rehab for increased strength and gait dysfunction before he can be discharged to home with home care. Bone biopsy results are pending. Increased paraproteinemia noted with possible multiple myeloma increased lambda light chains noted. Bone osseous survey performed 02/02 suggestive of small oval lucencies at the lateral right femoral neck and right intertrochanteric region, over U cane to each area along the lateral intraoral medullary space of proximal left femur shaft with rounded lucencies in the calvarium equal and related to small venous lakes 02/05 patient examined bedside. Denies any shortness of breath or chest pain. He does endorse increased weakness and balance abnormality. Patient is a one person assist and needs supervision while walking with a walker due to increasing gait instability. Repeat PT assessment tomorrow for evaluation for subacute rehab. Vitals are stable afebrile pulse 90 respiratory rate 18 blood pressure 154/80 patient received a dose of zoledronic acid on 02/05. Labs reviewed hemoglobin stable at 10.5 BUN 17 creatinine 0.9 liver enzymes mildly elevated with AST 77 ALT 73 alkaline phosphatase 290. Ultrasound abdomen ordere d to evaluate liver enzyme abnormality. Losartan initiated at 50 mg by mouth daily 02/06 patient examined bedside denies any complains of cough shortness of breath or dyspnea. He does has bilateral weakness which is gradually improving. He does have gait instability for which she would benefit with physical therapy at rehab place. Prescriptions sent to the pharmacy for dexamethasone and pain medication per oncology. Patient is stable to be discharged to inpatient rehab versus subacute rehab - Constitutional General appearance: cooperative, no acute distress, obese - EENT Eyes: anicteric sclerae, PERRLA, normal appearance ENT: hearing grossly normal - Neck Neck: no lymphadenopathy, normal ROM, no other, no rigidity, no stridor, no thyromegaly - Respiratory Respiratory: bilateral: CTA, negative: diminished, dullness, rales, rhonchi - Cardiovascular Rhythm: regular Heart sounds: normal: S1, S2 Abnormal Heart Sounds: no systolic murmur, no diastolic murmur, no rub, no S3 Gallop, no S4 Gallop, no click, no other - Gastrointestinal General gastrointestinal: normal bowel sounds, soft - Integumentary Integumentary: no rash, dressing clean and dry and intact - Neurologic Neurologic: No sensory deficit bilaterally decreased weakness 4+ ASSESSMENT AND PLAN 1. Pain in the thoracic and lumbar spine regions, multiple compression fracture deformities T 11, T12, L1, L2 that her chronic, degenerative changes. Status post kyphoplasty T10 T12 L1 and L2 by Dr. Jackson. Pain controlled on on Cymbalta 30 mg twice daily, Percocet 7.5/325 every 6 hours, Dilaudid 1 mg IV push every 3 hours, Robaxin 750 mg 3 times daily, tramadol. Continue to wear brace when he is out of bed 2. Multiple compression fractures possible pathologic. Patient was scheduled outpatient for PET scan. Consult with oncology. 3. Reduced lambda light chains with Concern for multiple myeloma. Marrow biopsy pending. Patient will follow outpatient with oncology for treatment options 4. Hyperlipidemia. Continue Lipitor 10 mg daily. 5. Intestinal prophylaxis. Protonix. 6. DVT prophylaxis. Heparin subcu. 7. COVID-19 testing negative. Patient has been hospitalized during a pandemic. DISCHARGE PLAN Inpatient rehab versus subacute rehab Patient Condition at Discharge: Stable Plan - Discharge Summary New Discharge Prescriptions: New Dexamethasone [Decadron] 40 mg PO DAILY #80 tablet Gabapentin [Neurontin] 300 mg PO HS #3 cap oxyCODONE-APAP 5-325MG [Percocet 5-325 mg] 1 each PO Q4HR PRN #18 tab PRN Reason: moderate Pain methocarbamoL [Robaxin] 750 mg PO TID tab traMADol HCl [Ultram] 50 mg PO Q6H PRN #12 tab PRN Reason: Pain Ergocalciferol [Vitamin D2 (1250 Mcg = 68347 Iu)] 1,250 mcg PO Q7D capsule oxyCODONE HCL/ACETAMINOPHEN [Percocet 5-325 mg] 1 tab PO Q4HR PRN 3 Days #42 tab PRN Reason: Pain Losartan [Cozaar] 50 mg PO DAILY tab polyethylene glycoL 3350 [Miralax] 17 gm PO DAILY packet Pantoprazole [Protonix] 40 mg PO AC-BRKFST tab ALPRAZolam [Xanax] 0.5 mg PO BID PRN #6 tab PRN Reason: Anxiety Continue Rosuvastatin Calcium [Crestor] 5 mg PO DIRECTED DULoxetine HCL [Cymbalta] 30 mg PO DAILY Discontinued Cyclobenzaprine [Flexeril] 5 mg PO BID PRN PRN Reason: Pain Hydrocodone/Acetaminophen [Ingram 5-325] 1 tab PO Q4HR PRN PRN Reason: Pain ALPRAZolam [Xanax] 0.5 mg PO BID traMADol HCL [Ultram] 50 mg PO Q6H PRN PRN Reason: Pain Discharge Medication List Rosuvastatin Calcium [Crestor] 5 mg PO DIRECTED 08/11/13 [History] DULoxetine HCL [Cymbalta] 30 mg PO DAILY 01/30/21 [History] oxyCODONE HCL/ACETAMINOPHEN [Percocet 5-325 mg] 1 tab PO Q4HR PRN 3 Days #42 tab 02/02/21 [Rx] ALPRAZolam [Xanax] 0.5 mg PO BID PRN #6 tab 02/06/21 [Rx] Dexamethasone [Decadron] 40 mg PO DAILY #80 tablet 02/06/21 [Rx] Ergocalciferol [Vitamin D2 (1250 Mcg = 36258 Iu)] 1,250 mcg PO Q7D capsule 02/06/21 [Rx] Gabapentin [Neurontin] 300 mg PO HS #3 cap 02/06/21 [Rx] Losartan [Cozaar] 50 mg PO DAILY tab 02/06/21 [Rx] Pantoprazole [Protonix] 40 mg PO AC-BRKFST tab 02/06/21 [Rx] methocarbamoL [Robaxin] 750 mg PO TID tab 02/06/21 [Rx] oxyCODONE-APAP 5-325MG [Percocet 5-325 mg] 1 each PO Q4HR PRN #18 tab 02/06/21 [Rx] polyethylene glycoL 3350 [Miralax] 17 gm PO DAILY packet 02/06/21 [Rx] traMADol HCl [Ultram] 50 mg PO Q6H PRN #12 tab 02/06/21 [Rx] Follow up Appointment(s)/Referral(s): Michael Espitia MD [STAFF PHYSICIAN] - 02/27/21 5:00 pm (This appt is at the [facility] office located behind [facility]) Frederick Jackson DO [Doctor of Osteopathic Medicine] - 1 Week Jay Melendrez MD [Primary Care Provider] - 1 Week Activity/Diet/Wound Care/Special Instructions: Sent Rx for pulse dose dexamethasone to [facility]. 02/04-02/07. Next round 02/12-02/15. Cont until seen by Dr. Espitia on 02/27/21. IF pt goes to rehab, please cont this regimen. Discharge Disposition: TRANSFER TO SNF/ECF
[2021-02-06] MEDS: methocarbamoL 750 MG TAB PO SCH ×3 (16:43→21:23)
--- NOTE | 2021-02-06 16:53 | P.PN ---
Subjective Progress Note Date: 02/06/21 Principal diagnosis: Bone lesions, labs suspect multiple myeloma In f/u pt has no acute c/o, he is eating, he is wearing his brace. He was started in pulse dose dex 02/04, tolerating ok Objective - Vital Signs Vital signs: Vital Signs Temp 98 F 02/06/21 07:40 Pulse 89 02/06/21 07:40 Resp 18 02/06/21 07:40 BP 172/88 02/06/21 07:40 Pulse Ox 94 L 02/06/21 02:00 Intake & Output 02/05/21 02/06/21 02/06/21 18:59 06:59 18:59 Output Total 1 500 Balance -1 -500 Output: Urine 1 500 Emesis 0 Other: Voiding Method Bedside Commode Bedside Commode Bedside Commode Urinal Urinal Urinal # Bowel Movements 1 - Constitutional General appearance: Present: average body habitus, cooperative, no acute distress - EENT Eyes: Present: anicteric sclerae, EOMI ENT: Present: hearing grossly normal - Respiratory Details: resp even and unlabored at rest - Neurologic Neurologic: Present: CNII-XII intact - Musculoskeletal Musculoskeletal: Present: strength equal bilaterally - Psychiatric Psychiatric: Present: A&O x's 3, appropriate affect, intact judgment & insight - Labs CBC & Chem 7: 02/05/21 11:05 02/06/21 05:56 Labs: Abnormal Lab Results - Last 24 Hours (Table) 02/05/21 02/05/21 02/06/21 Range/Units 11:05 11:05 05:56 RBC 3.22 L (4.30-5.90) m/uL Hgb 10.5 L (13.0-17.5) gm/dL Hct 33.2 L (39.0-53.0) % MCV 103.1 H (80.0-100.0) fL Lymphocytes # 0.8 L (1.0-4.8) k/uL Anion Gap 6.40 L (10.00-18.00) mmol/L BUN/Creatinine Ratio 24.11 H (12.00-20.00) Ratio Glucose 132 H (74-99) mg/dL Calcium 8.0 L (8.7-10.3) mg/dL AST 77 H 43 H (17-59) U/L ALT 73 H 57 H (4-49) U/L Alkaline Phosphatase 290 H 186 H (38-126) U/L Albumin 2.7 L 2.2 L (3.5-5.0) g/dL Globulin 4.7 H (1.6-3.3) g/dL Albumin/Globulin Ratio 0.47 L (1.60-3.17) g/dL Microbiology - Last 24 Hours (Table) 02/02/21 11:42 Blood Culture - Preliminary Blood No Growth after 72 hours Assessment and Plan (1) Intractable back pain Narrative/Plan: Pain Management and Orthopedic Spine Surgeon following and treating patient. Cont pain meds Cont meds for prevention of narcotic induced constipation Current Visit: Yes Status: Acute Priority: High Code(s): M54.9 - DORSALGIA, UNSPECIFIED SNOMED Code(s): 784585001 Plan: Dr. Espitia discussed multiple myeloma is most likely diagnosis. Until results from bone biopsy recommend pt rehabilitate. Pt will be treated with pulse dose dex. Rx sent for him when he is discharged from [facility]. F/U with Dr. Espitia in [place] plan.
--- NOTE | 2021-02-06 17:55 | P.PN ---
Subjective Progress Note Date: 02/06/21 HISTORY OF PRESENT ILLNESS This is a 75-year-old male patient of Dr. 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 Patient states that he is seen by Dr. Jackson and underwent MRI yesterday. He was heading home but was in such severe pain he decided to come into the emergency center for further evaluation. He states Dr. Martin has been the one managing his pain and his home pain medications have not been working. He does get some improvement of pain when he lays down. The pain is across his lumbar area with spasms. He denies having any numbness or tingling. He usually walks with a walker but this is been very difficult over the past 2 weeks due to loss of strength and increasing pain. Patient has a TLSO brace which he is wearing. A consult has been placed for Dr. Espitia by orthopedic spine. Consult is also in place with pain management. Patient was scheduled for PET scan on by Dr. Melendrez. Lumbar MRI imaging taken at [facility] on 01/30/2021: Inhomogenous bone marrow signal intensity of the regional bony structures which may be related to diffuse osteopenia and fibrofatty changes of aging but if con cern for more aggressive process correlate with a whole-body nuclear bone scan. If concern for multiple myeloma correlate with serum CBC and serum protein electrophoresis could be made; multiple compression fracture deformities at T11, T12, L1, and L2 that appear chronic in nature with no bone marrow edema to suggest acute component; mild dextroscoliosis at the thoracolumbar junction; mild levoscoliosis at L3-4; L1-2, L2-3, and L3-4 facet hypertrophy; L4-5 disc osteophyte complex with mild to moderate left neural foraminal narrowing with abutment of the exiting L4 nerve root; L5-S1 discosteophyte complex extending into the right neural foramina with some abutment to the exiting right L5 nerve root; distended colon; enlarged prostate gland. X-rays of the lumbosacral spine taken at [facility] on 01/24/2021: Compression fracture deformities of L1 and L2 with approximately 30% height loss; T12 compression fracture deformity with approximately 10% height loss; possible compression fracture T11; L4-5 degenerative disc disease Nuclear medicine whole-body bone scan taken at [facility] on 01/04/2021: Increased uptake at T7 and T12 02/01/21: Patient is having surgery, for kyphoplasty, for disc involving T10 and T12 L1 L2, by Dr. Jackson. He has no history of CAD CHF CVA, or CK D stage III. Patient is doing well, had never complained of post anesthesia problems in the past. is at bedside, has informed me that she patient needs subacute care, as she cannot take her off [facility] home, the just had right knee replacement January this year. Phosphorous, anticipate discharge. Kyphoplasty in the next 2448 hrs. once cleared by orthopedics. EKG was reviewed, normal sinus rhythm without any QT prolongation, vitals are stable, checked for INR, cleared for surgery today, class II anesthesia risk. Revised cardiac risk index of 0. 02/02: Patient still has uncontrolled pain, requires assistance for walking, bone scan, shows small oval lucency stripe femoral neck, and right intratrochanteric region, of the pelvis, small myelomatous lesions difficult to exclude, including the left femoral shaft and lateral intramedullary space. There are small lucencies in the cranium, equivocal and may relate to small venous lakes, there is limited degree for shopping, status post vertebroplasty T10 T12 L1-L2 insurance is quite [id number] for this admission, [phone], extension [phone], ID number [id number], reference #[id number] have called twice on 2 separate occasions, regarding the [id number], on the voicemail can be reached at this time 02/03 and has better pain control, however pain with ambulation, lower back area, with radiation to the suprapubic region, in the groin. Suspect either urinary retention, against L1 radiculopathy, start gabapentin 300 mg at bedtime, awaiting formal approval for inpatient therapy, or subacute rehab. Patient has requested to resume Xanax 0.5 twice a day when necessary PVRs to be checked. Vitals are stable, i called insurance company again for approval, they did not call me 02/04 patient examined at bedside. Patient continues to make improvement. He is answering questions appropriately denies any chest pain or shortness of breath. Back pain has improved. Patient is willing to participate with physical therapy. His pain is better controlled with the current regimen including Cymbalta, Percocet and Robaxin. Follow-up PT evaluation on Saturday to evaluate for patient's mobility. Patient's pain is better controlled while sitting increases as he ambulates. Patient benefit from rehab for increased strength and gait dysfunction before he can be discharged to home with home care. Bone biopsy results are pending. Increased paraproteinemia noted with possible multiple myeloma increased lambda light chains noted. Bone osseous survey performed 02/02 suggestive of small oval lucencies at the lateral right femoral neck and right intertrochanteric region, over U cane to each area along the lateral intraoral medullary space of proximal left femur shaft with rounded lucencies in the calvarium equal and related to small venous lakes 02/05 patient examined bedside. Denies any shortness of breath or chest pain. He does endorse increased weakness and balance abnormality. Patient is a one person assist and needs supervision while walking with a walker due to increasing gait instability. Repeat PT assessment tomorrow for evaluation for subacute rehab. Vitals are stable afebrile pulse 90 respiratory rate 18 blood pressure 154/80 patient received a dose of zoledronic acid on 02/05. Labs reviewed hemoglobin stable at 10.5 BUN 17 creatinine 0.9 liver enzymes mildly elevated with AST 77 ALT 73 alkaline phosphatase 290. Ultrasound abdomen ordered to evaluate liver enzyme abnormality. Losartan initiated at 50 mg by mouth daily 02/06 patient examined bedside denies any complains of cough shortness of breath or dyspnea. He does has bilateral weakness which is gradually improving. He does have gait instability for which she would benefit with physical therapy at rehab place. Prescriptions sent to the pharmacy for dexamethasone and pain medication per oncology. Patient is stable to be discharged to inpatient rehab versus subacute rehab Review of systems Constitutional: No fever, no chills, no night sweats. No weight change. No weakness, fatigue or lethargy. No daytime sleepiness. EENT: No headache. No blurred vision or double vision, no loss of vision. No loss of Hearing, no ringing in the ears, no dizziness. No nasal drainage or congestion. No epistaxis. No sore throat. Lungs: No shortness of breath, cough, no sputum production. No wheezing. Cardiovascular: No chest pain, no lower extremity edema. No palpitations. No paroxysmal nocturnal dyspnea. No orthopnea. No lightheadedness or dizziness. No syncopal episodes. Abdominal: No abdominal pain. No nausea, vomiting. No diarrhea. No constipation. No bloody or tarry stools. No loss of appetite. Genitourinary: No dysuria, increased frequency, urgency. No urinary retention. Musculoskeletal: Increased bilateral lower extremity weakness, with gait dysfunction, no frequent falls. Reports back pain. No neck pain. Integumentary: No wounds, no lesions. No rash or pruritus. No unusual bruising. No change in hair or nails. Neurologic: No aphasia. No facial droop. No change in mentation. No head injury. No headache. No paralysis. No paresthesia. Psychiatric: No depression. No anxiety. No mood swings. Endocrine: No abnormal blood sugars. No weight change. No excessive sweating or thirst. No cold intolerance. - Constitutional General appearance: cooperative, no acute distress, obese - EENT Eyes: anicteric sclerae, PERRLA, normal appearance ENT: hearing grossly normal - Neck Neck: no lymphadenopathy, normal ROM, no other, no rigidity, no stridor, no thyromegaly - Respiratory Respiratory: bilateral: CTA, negative: diminished, dullness, rales, rhonchi - Cardiovascular Rhythm: regular Heart sounds: normal: S1, S2 Abnormal Heart Sounds: no systolic murmur, no diastolic murmur, no rub, no S3 Gallop, no S4 Gallop, no click, no other - Gastrointestinal General gastrointestinal: normal bowel sounds, soft - Integumentary Integumentary: no rash, dressing clean and dry and intact - Neurologic Neurologic: No sensory deficit bilaterally decreased weakness 4+ - Musculoskeletal Musculoskeletal: gait staggering, strength equal bilaterally, sensation intact - Psychiatric Psychiatric: A&O x's 3, appropriate affect ASSESSMENT AND PLAN 1. Pain in the thoracic and lumbar spine regions, multiple compression fracture deformities T 11, T12, L1, L2 that her chronic, degenerative changes. Status post kyphoplasty T10 T12 L1 and L2 by Dr. Jackson. Pain controlled on on Cymbalta 30 mg twice daily, Percocet 7.5/325 every 6 hours, Dilaudid 1 mg IV push every 3 hours, Robaxin 750 mg 3 times daily, tramadol. Continue to wear brace when he is out of bed 2. Multiple compression fractures possible pathologic. Patient was scheduled outpatient for PET scan. Consult with oncology. 3. Reduced lambda light chains with Concern for multiple myeloma. Marrow biopsy pending. Patient will follow outpatient with oncology for treatment op tions 4. Hyperlipidemia. Continue Lipitor 10 mg daily. 5. Intestinal prophylaxis. Protonix. 6. DVT prophylaxis. Heparin subcu. 7. COVID-19 testing negative. Patient has been hospitalized during a pandemic. DISCHARGE PLAN Subacute rehab at [facility] Objective - Vital Signs Vital signs: Vital Signs Temp 97.9 F 02/06/21 14:00 Pulse 54 L 02/06/21 14:00 Resp 18 02/06/21 14:00 BP 163/89 02/06/21 14:00 Pulse Ox 92 L 02/06/21 14:00 Intake & Output 02/05/21 02/06/21 02/06/21 18:59 06:59 18:59 Intake Total 120 Output Total 1 800 Balance -1 -680 Intake: Oral 120 Output: Urine 1 800 Emesis 0 Other: Voiding Method Bedside Commode Bedside Commode Bedside Commode Urinal Urinal Urinal # Bowel Movements 1 - Labs CBC & Chem 7: 02/05/21 11:05 02/06/21 05:56 Labs: Abnormal Lab Results - Last 24 Hours (Table) 02/06/21 Range/Units 05:56 Anion Gap 6.40 L (10.00-18.00) mmol/L BUN/Creatinine Ratio 24.11 H (12.00-20.00) Ratio Calcium 8.0 L (8.7-10.3) mg/dL AST 43 H (14-35) U/L ALT 57 H (10-49) U/L Alkaline Phosphatase 186 H (41-126) U/L Albumin 2.2 L (3.8-4.9) g/dL Globulin 4.7 H (1.6-3.3) g/dL Albumin/Globulin Ratio 0.47 L (1.60-3.17) g/dL Microbiology - Last 24 Hours (Table) 02/02/21 11:42 Blood Culture - Preliminary Blood No Growth after 96 hours
[2021-02-06] MEDS: GABAPENTIN 300 MG CAP PO SCH (21:22)
[2021-02-06] MEDS: ALPRAZolam 0.5 MG TAB PO PRN (21:54)
[2021-02-07] MEDS: SODIUM CHLORIDE 0.9% 1,000 ML IV SCH ×4 (05:50→21:13)
--- NOTE | 2021-02-07 07:09 | P.PN ---
Progress Note - Text Notes reviewed and would acdept for IPR, sent for insurance authorizationj.
[2021-02-07] MEDS: ERGOCALCIFEROL 1,250 MCG (50,000 IU) CAPSULE PO SCH (08:05)
[2021-02-07] MEDS: methocarbamoL 750 MG TAB PO SCH ×3 (08:05→21:10)
[2021-02-07] MEDS: HEPARIN SODIUM,PORCINE/PF 5,000 UNIT/0.5 ML SYRINGE SQ SCH ×2 (08:05→21:10)
[2021-02-07] MEDS: DULoxetine HCL 30 MG CAPSULE.DR PO SCH ×2 (08:05→21:10)
[2021-02-07] MEDS: ATORVASTATIN 10 MG TAB PO SCH (08:06)
[2021-02-07] MEDS: LOSARTAN 50 MG TAB PO SCH (08:06)
[2021-02-07] MEDS: polyethylene glycoL 3350 17 GM POWD.PACK PO SCH (08:06)
[2021-02-07] MEDS: PANTOPRAZOLE 40 MG TABLET PO SCH (08:06)
[2021-02-07 09:06] VITALS: BMI 28.1
[2021-02-07] MEDS: dexAMETHasone 4 MG TAB PO SCH (09:44)
--- NOTE | 2021-02-07 10:55 | P.PN ---
Subjective Progress Note Date: 02/07/21 This is a 75-year-old male who was admitted for back pain. Patient is status post vertebral body biopsy and kyphoplasty at T10 T12 L1 and L2 for compression fractures by Dr. Jackson. This is postoperative day #6 and patient is seen and evaluated at bedside today. Patient states that his pain is well controlled this morning. Patient denies any new complaints today. Objective - Vital Signs Vital signs: Vital Signs Temp 98.2 F 02/07/21 08:00 Pulse 80 02/07/21 08:00 Resp 18 02/07/21 08:00 BP 169/100 02/07/21 08:00 Pulse Ox 95 02/07/21 08:00 Intake & Output 02/06/21 02/07/21 02/07/21 18:59 06:59 18:59 Intake Total 360 300 500 Output Total 800 500 500 Balance -440 -200 0 Weight 81.647 kg Intake: Oral 360 300 500 Output: Urine 800 500 500 Other: Voiding Method Bedside Commode Bedside Commode Urinal Urinal # Voids 1 # Bowel Movements 1 - Exam On exam patient is resting comfortably in bed in no acute distress. Patient is alert and oriented 3. Patient moves arms and legs freely. Sensation intact. Neurovascular status and circulatory status are intact. - Labs CBC & Chem 7: 02/05/21 11:05 02/06/21 05:56 Labs: Abnormal Lab Results - Last 24 Hours (Table) 02/06/21 Range/Units 05:56 Anion Gap 6.40 L (10.00-18.00) mmol/L BUN/Creatinine Ratio 24.11 H (12.00-20.00) Ratio Calcium 8.0 L (8.7-10.3) mg/dL AST 43 H (14-35) U/L ALT 57 H (10-49) U/L Alkaline Phosphatase 186 H (41-126) U/L Albumin 2.2 L (3.8-4.9) g/dL Globulin 4.7 H (1.6-3.3) g/dL Albumin/Globulin Ratio 0.47 L (1.60-3.17) g/dL Microbiology - Last 24 Hours (Table) 02/02/21 11:42 Blood Culture - Preliminary Blood No Growth after 96 hours Assessment and Plan Assessment: Status post vertebral body biopsy and kyphoplasty at T10 T12 L1 and L2 for compression fractures Plan: 1. Continue routine postoperative care and pain control. 2. Continue physical therapy for mobilization. Recommend use of brace when he is out of bed. 3. Patient is clear for discharge from an orthopedic standpoint once cleared medically.
--- NOTE | 2021-02-07 13:24 | P.PN ---
Subjective Progress Note Date: 02/07/21 Principal diagnosis: Bone lesions, labs abnormal, suspect multiple myeloma In f/u pt has no acute c/o, he is awaiting approval to go to rehab. He was started in pulse dose dex 02/04, tolerating ok Objective - Vital Signs Vital signs: Vital Signs Temp 98.2 F 02/07/21 08:00 Pulse 80 02/07/21 08:00 Resp 18 02/07/21 08:00 BP 169/100 02/07/21 08:00 Pulse Ox 95 02/07/21 08:00 Intake & Output 02/06/21 02/07/21 02/07/21 18:59 06:59 18:59 Intake Total 360 300 500 Output Total 800 500 500 Balance -440 -200 0 Weight 81.647 kg Intake: Oral 360 300 500 Output: Urine 800 500 500 Other: Voiding Method Bedside Commode Bedside Commode Urinal Urinal # Voids 1 # Bowel Movements 1 - Constitutional General appearance: Present: average body habitus, cooperative, no acute distress - EENT Eyes: Present: anicteric sclerae, EOMI ENT: Present: hearing grossly normal - Respiratory Details: resp mildly labored at rest - Neurologic Neurologic: Present: CNII-XII intact - Musculoskeletal Musculoskeletal: Present: generalized weakness, strength equal bilaterally - Psychiatric Psychiatric: Present: A&O x's 3, appropriate affect, intact judgment & insight - Labs CBC & Chem 7: 02/05/21 11:05 02/06/21 05:56 Labs: Microbiology - Last 24 Hours (Table) 02/02/21 11:42 Blood Culture - Preliminary Blood No Growth after 96 hours Assessment and Plan (1) Intractable back pain Narrative/Plan: Pain Management and Orthopedic Spine Surgeon following and treating patient. Cont pain meds Cont meds for prevention of narcotic induced constipation Current Visit: Yes Status: Acute Priority: High Code(s): M54.9 - DORSALGIA, UNSPECIFIED SNOMED Code(s): 900470756 Plan: Multiple myeloma is most likely diagnosis, pending bone marrow results. Pt will be treated with pulse dose dex for now. He will not be started on any chemo until DC from rehab. He has a F/U with Dr. Espitia in DC plan.
--- NOTE | 2021-02-07 14:14 | P.DS ---
Providers Date of admission: 01/31/21 13:14 Attending physician: Linda Cortez Consults: 01/30/21 15:50 Consult Physician Urgent Consulting Provider: Margaux Landon Consult Reason/Comments: intractable back pain Do you want consulting provider notified?: Yes Consult Physician Urgent Consulting Provider: Frederick Jackson Consult Reason/Comments: back pain Do you want consulting provider notified?: Yes 01/31/21 11:43 Consult Physician Urgent Consulting Provider: Michael Espitia Consult Reason/Comments: Evaluate infiltrative process/metastatic disease/multiple myeloma Do you want consulting provider notified?: Yes 02/02/21 09:02 Consult Physician Routine Consulting Provider: Woody Gautam Consult Reason/Comments: Possible rehab placement Do you want consulting provider notified?: Yes Primary care physician: [facility] Course: HISTORY OF PRESENT ILLNESS This is a 75-year-old male patient of Dr. 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 Patient states that he is seen by Dr. Jackson and underwent MRI yesterday. He was heading home but was in such severe pain he decided to come into the emergency center for further evaluation. He states Dr. Martin has been the one managing his pain and his home pain medications have not been working. He does get some improvement of pain when he lays down. The pain is across his lumbar area with spasms. He denies having any numbness or tingling. He usually walks with a walker but this is been very difficult over the past 2 weeks due to loss of strength and increasing pain. Patient has a TLSO brace which he is wearing. A consult has been placed for Dr. Espitia by orthopedic spine. Consult is also in place with pain management. Patient was scheduled for PET scan on by Dr. Melendrez. Lumbar MRI imaging taken at [facility] on 01/30/2021: Inhomogenous bone marrow signal intensity of the regional bony structures which may be related to diffuse osteopenia and fibrofatty changes of aging but if concern for more aggressive process correlate with a whole-body nuclear bone scan. If concern for multiple myeloma correlate with serum CBC and serum protein electrophoresis could be made; multiple compression fracture deformities at T11, T12, L1, and L2 that appear chronic in nature with no bone marrow edema to suggest acute component; mild dextroscoliosis at the thoracolumbar junction; mild levoscoliosis at L3-4; L1-2, L2-3, and L3-4 facet hypertrophy; L4-5 disc osteophyte complex with mild to moderate left neural foraminal narrowing with abutment of the exiting L4 nerve root; L5-S1 discosteophyte complex extending into the right neural foramina with some abutment to the exiting right L5 nerve root; distended colon; enlarged prostate gland. X-rays of the lumbosacral spine taken at [facility] on 01/24/2021: Compression fracture deformities of L1 and L2 with approximately 30% height loss; T12 compression fracture deformity with approximately 10% height loss; possible compression fracture T11; L4-5 degenerative disc disease Nuclear medicine whole-body bone scan taken at [facility] on 01/04/2021: Increased uptake at T7 and T12 02/01/21: Patient is having surgery, for kyphoplasty, for disc involving T10 and T12 L1 L2, by Dr. Jackson. He has no history of CAD CHF CVA, or CK D stage III. Patient is doing well, had never complained of post anesthesia problems in the past. is at bedside, has informed me that she patient needs subacute care, as she cannot take her off [facility] home, the just had right knee replacement January this year. Phosphorous, anticipate discharge. Kyphoplasty in the next 2448 hrs. once cleared by orthopedics. EKG was reviewed, normal sinus rhythm without any QT prolongation, vitals are stable, checked for INR, cleared for surgery today, class II anesthesia risk. Revised cardiac risk index of 0. 02/02: Patient still has uncontrolled pain, requires assistance for walking, bone scan, shows small oval lucency stripe femoral neck, and right intratrochanteric region, of the pelvis, small myelomatous lesions difficult to exclude, including the left femoral shaft and lateral intramedullary space. There are small lucencies in the cranium, equivocal and may relate to small venous lakes, there is limited degree for shopping, status post vertebroplasty T10 T12 L1-L2 insurance is quite [id number] for this admission, 1 [phone], extension [phone], ID number [id number], reference #[id number] have called twice on 2 separate occasions, regarding the [id number], on the voicemail can be reached at this time 02/03 and has better pain control, however pain with ambulation, lower back area, with radiation to the suprapubic region, in the groin. Suspect either urinary retention, against L1 radiculopathy, start gabapentin 300 mg at bedtime, awaiting formal approval for inpatient therapy, or subacute rehab. Patient has requested to resume Xanax 0.5 twice a day when necessary PVRs to be checked. Vitals are stable, i called insurance company again for approval, they did not call me 02/04 patient examined at bedside. Patient continues to make improvement. He is answering questions appropriately denies any chest pain or shortness of breath. Back pain has improved. Patient is willing to participate with physical therapy. His pain is better controlled with the current regimen including Cymbalta, Percocet and Robaxin. Follow-up PT evaluation on Saturday to evaluate for patient's mobility. Patient's pain is better controlled while sitting increases as he ambulates. Patient benefit from rehab for increased strength and gait dysfunction before he can be discharged to home with home care. Bone biopsy results are pending. Increased paraproteinemia noted with possible multiple myeloma increased lambda light chains noted. Bone osseous survey performed 02/02 suggestive of small oval lucencies at the lateral right femoral neck and right intertrochanteric region, over U cane to each area along the lateral intraoral medullary space of proximal left femur shaft with rounded lucencies in the calvarium equal and related to small venous lakes 02/05 patient examined bedside. Denies any shortness of breath or chest pain. He does endorse increased weakness and balance abnormality. Patient is a one person assist and needs supervision while walking with a walker due to increasing gait instability. Repeat PT assessment tomorrow for evaluation for subacute rehab. Vitals are stable afebrile pulse 90 respiratory rate 18 blood pressure 154/80 patient received a dose of zoledronic acid on 02/05. Labs reviewed hemoglobin stable at 10.5 BUN 17 creatinine 0.9 liver enzymes mildly elevated with AST 77 ALT 73 alkaline phosphatase 290. Ultrasound abdomen ordered to evaluate liver enzyme abnormality. Losartan initiated at 50 mg by mouth daily 02/06 patient examined bedside denies any complains of cough shortness of breath or dyspnea. He does has bilateral weakness which is gradually improving. He does have gait instability for which she would benefit with physical therapy at rehab place. Prescriptions sent to the pharmacy for dexamethasone and pain m edication per oncology. Patient is stable to be discharged to inpatient rehab versus subacute rehab 02/07 patient examined bedside. Denies any complaint inthe back . blood pressure noted to be high. Norvasc initiated at 10 milligrams by mouth daily. Continue losartan 50 mg by mouth daily, medication to be adjusted at [facility]. Ultrasound abdomen was discussed with patient. No sign of obstruction noted. Cholelithiasis noted no cholangitis. Her enzymes have improved since yesterday. No plan for initiation of chemotherapy until patient follows with oncology at outpatient and finishes his rehab. Patient will be discharged to subacute rehab today Constitutional General appearance: cooperative, no acute distress, obese - EENT Eyes: anicteric sclerae, PERRLA, normal appearance ENT: hearing grossly normal - Neck Neck: no lymphadenopathy, normal ROM, no other, no rigidity, no stridor, no thyromegaly - Respiratory Respiratory: bilateral: CTA, negative: diminished, dullness, rales, rhonchi - Cardiovascular Rhythm: regular Heart sounds: normal: S1, S2 Abnormal Heart Sounds: no systolic murmur, no diastolic murmur, no rub, no S3 Gallop, no S4 Gallop, no click, no other - Gastrointestinal General gastrointestinal: normal bowel sounds, soft - Integumentary Integumentary: no rash, dressing clean and dry and intact - Neurologic Neurologic: No sensory deficit bilaterally decreased weakness 4+ ASSESSMENT AND PLAN 1. Pain in the thoracic and lumbar spine regions, multiple compression fracture deformities T 11, T12, L1, L2 that her chronic, degenerative changes. Status post kyphoplasty T10 T12 L1 and L2 by Dr. Jackson. Pain controlled on on Cymbalta 30 mg twice daily, Percocet 7.5/325 every 6 hours, Dilaudid 1 mg IV push every 3 hours, Robaxin 750 mg 3 times daily, tramadol. Continue to wear brace when he is out of bed 2. Multiple compression fractures possible pathologic. Patient was scheduled outpatient for PET scan. Consult with oncology. 3. Reduced lambda light chains with Concern for multiple myeloma. Marrow biopsy pending. Patient will follow outpatient with oncology for treatment options 4. Hyperlipidemia. Continue Lipitor 10 mg daily. 5. Hypertension on losartan 50 mg daily Norvasc added at 10 mg by mouth daily DVT prophylaxis. Heparin subcu. 7. COVID-19 testing negative. Patient has been hospitalized during a pandemic. DISCHARGE PLAN subacute rehab Patient Condition at Discharge: Stable Plan - Discharge Summary New Discharge Prescriptions: New Dexamethasone [Decadron] 40 mg PO DAILY #80 tablet Gabapentin [Neurontin] 300 mg PO HS #3 cap oxyCODONE-APAP 5-325MG [Percocet 5-325 mg] 1 each PO Q4HR PRN #18 tab PRN Reason: moderate Pain methocarbamoL [Robaxin] 750 mg PO TID tab traMADol HCl [Ultram] 50 mg PO Q6H PRN #12 tab PRN Reason: Pain Ergocalciferol [Vitamin D2 (1250 Mcg = 38392 Iu)] 1,250 mcg PO Q7D capsule oxyCODONE HCL/ACETAMINOPHEN [Percocet 5-325 mg] 1 tab PO Q4HR PRN 3 Days #42 tab PRN Reason: Pain Losartan [Cozaar] 50 mg PO DAILY tab polyethylene glycoL 3350 [Miralax] 17 gm PO DAILY packet Pantoprazole [Protonix] 40 mg PO AC-BRKFST tab ALPRAZolam [Xanax] 0.5 mg PO BID PRN #6 tab PRN Reason: Anxiety amLODIPine [Norvasc] 10 mg PO DAILY #30 tablet Continue Rosuvastatin Calcium [Crestor] 5 mg PO DIRECTED DULoxetine HCL [Cymbalta] 30 mg PO DAILY Discontinued Cyclobenzaprine [Flexeril] 5 mg PO BID PRN PRN Reason: Pain Hydrocodone/Acetaminophen [[place] 5-325] 1 tab PO Q4HR PRN PRN Reason: Pain ALPRAZolam [Xanax] 0.5 mg PO BID traMADol HCL [Ultram] 50 mg PO Q6H PRN PRN Reason: Pain Discharge Medication List Rosuvastatin Calcium [Crestor] 5 mg PO DIRECTED 08/11/13 [History] DULoxetine HCL [Cymbalta] 30 mg PO DAILY 01/30/21 [History] oxyCODONE HCL/ACETAMINOPHEN [Percocet 5-325 mg] 1 tab PO Q4HR PRN 3 Days #42 tab 02/02/21 [Rx] ALPRAZolam [Xanax] 0.5 mg PO BID PRN #6 tab 02/06/21 [Rx] Dexamethasone [Decadron] 40 mg PO DAILY #80 tablet 02/06/21 [Rx] Ergocalciferol [Vitamin D2 (1250 Mcg = 86032 Iu)] 1,250 mcg PO Q7D capsule 02/06/21 [Rx] Gabapentin [Neurontin] 300 mg PO HS #3 cap 02/06/21 [Rx] Losartan [Cozaar] 50 mg PO DAILY tab 02/06/21 [Rx] Pantoprazole [Protonix] 40 mg PO AC-BRKFST tab 02/06/21 [Rx] methocarbamoL [Robaxin] 750 mg PO TID tab 02/06/21 [Rx] oxyCODONE-APAP 5-325MG [Percocet 5-325 mg] 1 each PO Q4HR PRN #18 tab 02/06/21 [Rx] polyethylene glycoL 3350 [Miralax] 17 gm PO DAILY packet 02/06/21 [Rx] traMADol HCl [Ultram] 50 mg PO Q6H PRN #12 tab 02/06/21 [Rx] amLODIPine [Norvasc] 10 mg PO DAILY #30 tablet 02/07/21 [Rx] Follow up Appointment(s)/Referral(s): Michael Espitia MD [STAFF PHYSICIAN] - 02/27/21 5:00 pm (This appt is at the [place] office located behind [facility]) Frederick Jackson, [Doctor of Osteopathic Medicine] - 1 Week Jay Melendrez MD [Primary Care Provider] - 1 Week Activity/Diet/Wound Care/Special Instructions: Sent Rx for pulse dose dexamethasone to [facility]. 02/04-02/07. Next round 2-02/15. Cont until seen by Dr. Espitia on 02/27/21. IF pt goes to rehab, please cont this regimen. Discharge Disposition: TRANSFER TO SNF/ECF
[2021-02-07] MEDS: GABAPENTIN 300 MG CAP PO SCH (21:10)
[2021-02-07] MEDS: ALPRAZolam 0.5 MG TAB PO PRN (21:10)
[2021-02-07] MEDS: oxyCODONE-APAP 5-325MG 1 EACH TAB PO PRN (22:47)
[2021-02-08 07:41] VITALS: PULSE 77; RESP 18; TEMP 98.1
[2021-02-08] MEDS: methocarbamoL 750 MG TAB PO SCH (09:41)
[2021-02-08] MEDS: DULoxetine HCL 30 MG CAPSULE.DR PO SCH (09:41)
[2021-02-08] MEDS: ATORVASTATIN 10 MG TAB PO SCH (09:42)
[2021-02-08] MEDS: polyethylene glycoL 3350 17 GM POWD.PACK PO SCH (09:42)
[2021-02-08] MEDS: PANTOPRAZOLE 40 MG TABLET PO SCH (09:42)
[2021-02-08] MEDS: SODIUM CHLORIDE 0.9% 1,000 ML IV SCH (09:42)
[2021-02-08] MEDS: LOSARTAN 50 MG TAB PO SCH (09:42)
[2021-02-08] MEDS: HEPARIN SODIUM,PORCINE/PF 5,000 UNIT/0.5 ML SYRINGE SQ SCH (09:42)
[2021-02-08] MEDS ORDERED: amLODIPine 10 MG TAB PO SCH (11:30)
[2021-02-08 15:31] VITALS: BP 116/67
== END 2021-02-08 15:47 | DRG 478 ==
LOC: EC 12:40 → 5NMEDONC 16:02 → 6NMEDSUR 16:24 → OBSVTOIN 01-31 13:14
PROVIDERS: ADMIT Family Medicine; ATTEND Family Medicine
PROC: 0PS43ZZ Reposition Thoracic Vertebra, Percutaneous Approach (ICD-10-PCS; 2021-02-01)
PROC: 0PU43JZ Supplement Thoracic Vertebra with Synthetic Substitute, Percutaneous Approach (ICD-10-PCS; 2021-02-01)
PROC: 0QS03ZZ Reposition Lumbar Vertebra, Percutaneous Approach (ICD-10-PCS; 2021-02-01)
PROC: 0QU03JZ Supplement Lumbar Vertebra with Synthetic Substitute, Percutaneous Approach (ICD-10-PCS; 2021-02-01)
PROC: 0QB03ZX Excision of Lumbar Vertebra, Percutaneous Approach, Diagnostic (ICD-10-PCS; 2021-02-01)
PROC: 0PB43ZX Excision of Thoracic Vertebra, Percutaneous Approach, Diagnostic (ICD-10-PCS; principal; 2021-02-01 07:30)
DX: M84.58XA Pathological fracture in neoplastic disease, other specified site, initial encounter for fracture (principal); C90.00 Multiple myeloma not having achieved remission; Z20.822 Contact with and (suspected) exposure to COVID-19; E78.5 Hyperlipidemia, unspecified; M54.9 Dorsalgia, unspecified; G89.29 Other chronic pain; I10 Essential (primary) hypertension; H91.90 Unspecified hearing loss, unspecified ear; M48.54XA Collapsed vertebra, not elsewhere classified, thoracic region, initial encounter for fracture; M48.56XA Collapsed vertebra, not elsewhere classified, lumbar region, initial encounter for fracture; M51.36 Other intervertebral disc degeneration, lumbar region; K21.9 Gastro-esophageal reflux disease without esophagitis; M19.90 Unspecified osteoarthritis, unspecified site; M80.08XA Age-related osteoporosis with current pathological fracture, vertebra(e), initial encounter for fracture; Z87.891 Personal history of nicotine dependence; Z85.831 Personal history of malignant neoplasm of soft tissue; Z79.82 Long term (current) use of aspirin; Z79.899 Other long term (current) drug therapy
CPT/HCPCS: 36415; 71250; 72080; 72157; 74176; 76705; 77075; 80053; 82607; 82728; 82747; 83540; 83550; 83605; 83883; 83921; 84100; 84153; 84154; 84165; 84166; 84550; 85025; 85379; 85610; 86038; 86334; 86431; 87040; 87635; 88307; 88311; 88341; 88342; 96361; 96374; 96376; 99285

== ENCOUNTER → 2021-07-24 | Outpatient (CLI) | payer MEDICARE ==
--- NOTE | 2021-07-25 09:10 | XR ---
EXAMINATION TYPE: XR chest 2V DATE OF EXAM: 07/24/2021 COMPARISON: 11/11/2018 HISTORY: 76-year-old male nonspecified hyperlipidemia, E78.5, history of multiple myeloma. TECHNIQUE: Frontal and lateral views FINDINGS: The heart is normal size. Mild tortuosity of the thoracic aorta. Unchanged bone island left humeral h ead. No consolidation or pleural effusion. Multiple vertebroplasty changes noted lower thoracic and u pper lumbar spine. Underlying vertebral compression deformities appear new from 2019. IMPRESSION: No acute cardiopulmonary process.
--- NOTE | 2021-07-25 09:38 | XR ---
EXAMINATION TYPE: XR bone survey complete, 16 views DATE OF EXAM: 07/24/2021 COMPARISON: 02/02/2021 HISTORY: 76-year-old male history of multiple myeloma. E78.5 HYPERLIPIDEMIA, UNSPECIFIED FINDINGS: Cervical spine: No prevertebral soft tissue swelling. Moderate disc/endplate degenerative change mid to lower cervical spine. Trace grade 1 anterolisthesis C7-T1. Facet and uncovertebral joint arthropat hy throughout. No suspicious lytic lesion. Humeri: Tiny oval lucencies within the medullary space of both humeral shafts likely relating to oste openia. Calvarium: Stable small scattered oval lucencies, cortical, possible venous lakes. Pelvis: Several areas of small lucencies in the femoral neck region on both sides though not as prono unced as on prior exam. Findings may be on the basis of osteopenia. Multiple surgical clips along the left paramedian lower abdomen. Multiple pelvic phleboliths. Mild degenerative change left hip. Thoracic spine: Osteopenia. Redemonstrated vertebroplasty change at T10, T12, L1, and L2. Interval de velopment of anterior wedging at both T9 and T11. Upper and mid thoracic vertebra remains suboptimal due to the degree of osteopenia. Lumbar spine: Mild overall height loss L3 appears more pronounced compared to prior exam. Facet arthr opathy. Mild to moderate degenerative disc disease L5-S1. Femurs: Possible subtle endosteal scalloping right lateral subtrochanteric region may have been prese nt in retrospect. Very subtle small intramedullary lucencies within the proximal to mid left femoral shaft are similar. Possibly related to osteopenia. IMPRESSION: 1. Previous T10, T12, L1, and L2 vertebroplasties. Interval development of anterior wedging compress ion deformities at both T9 and T11. Interval development of mild vertebral compression injury of L3. 2. Tiny oval lucencies within the medullary space of both humeral shafts likely relating to osteopeni a. 3. Similar small lucencies within the calvarium equivocal between myelomatous lesions or venous lakes . 4. Additional small intramedullary lucencies proximal to mid left femoral shaft are similar. Possible subtle lucency with endosteal scalloping right lateral subtrochanteric region was present in retrosp ect.
== END | disposition home or self-care (01) ==
LOC: RADXRMAIN 15:00
PROVIDERS: ATTEND Internal Medicine Hematology & Oncology
DX: C90.00 Multiple myeloma not having achieved remission (principal); C49.9 Malignant neoplasm of connective and soft tissue, unspecified; I10 Essential (primary) hypertension; E78.5 Hyperlipidemia, unspecified
CPT/HCPCS: 71046; 77075

== ENCOUNTER → 2024-03-04 | Outpatient (CLI) | payer MEDICARE | END | disposition home or self-care (01) | LOC: LABWHC1 11:34 | PROVIDERS: ATTEND Urology | DX: R97.20 Elevated prostate specific antigen [PSA] (principal) | CPT/HCPCS: 36415; 84153 ==

== ENCOUNTER → 2024-04-03 | Outpatient (CLI) | payer MEDICARE ==
--- NOTE | 2024-04-03 10:54 | MR ---
EXAMINATION TYPE: MR Prostate wo/w con DATE OF EXAM: 04/03/2024 8:37 AM COMPARISON: None. CLINICAL INDICATION: Male, 79 years old with history of R97.20 ELEVATED PROSTATE SPECIFIC ANTIGEN [PS A]; Elevated PSA, HX of Liposarcoma and multiple myeloma TECHNIQUE: Multi-planar, multi-sequence imaging of the pelvis is performed prior to and following the uncomplicated administration of bolus intravenous gadolinium. IV Contrast: 7 mL Gadobutrol Interpretive Criteria: PI-RADS v2.1 SERUM PSA: 11/2023 6.79, 11/2022 4.87 SURGICAL PATHOLOGY: No data available. FINDINGS: Prostatic dimensions: 5.7 x 5.5 x 4.8 cm. Ellipsoid Volume:78.79 (PSA density=0.09 ng/mL/mL) CENTRAL GLAND (Central and Transition Zones/CZ+TZ): Multiple bilateral, heterogenous appearing hypertrophic stromal nodules, without suspicious lesion. M edian lobe hypertrophy with protrusion into the base of the bladder. (PI-RADS 2) PERIPHERAL ZONE (PZ): Bilateral linear, indistinct wedgelike areas of low ADC, and low T2 signal, No evidence of masslike a bnormality, or localized perfusional hypervascularity, to further suggest a focus of clinically signi ficant prostate cancer. Extruded BPH nodule in the right peripheral gland apex and scattered througho ut mid gland periphery. (PI-RADS 2) SEMINAL VESICLES (SV): Symmetric and unremarkable. PERIPROSTATIC TISSUES: Unremarkable. LYMPH NODES: No enlarged pelvic lymph node. REMAINING PELVIS: Circumferential bladder wall thickening with trabeculations likely secondary to chronic bladder outfl ow obstruction. No abnormal free or organized intrapelvic fluid collection. No pathologic bowel dilation or mural thickening. Colonic diverticula are present. Left fat containing inguinal hernia OSSEOUS STRUCTURES: No suspicious osseous abnormality. IMPRESSION: 1. No specific features for high-risk prostate cancer. Maximum PI-RADS score: 2. 2. Moderate BPH, estimated gland volume 78.79 mL. 3. No suspicious osseous lesion. No lymphadenopathy. No evidence of prostate adenocarcinoma involving the periprostatic tissues. [facility], , 04/03/2024 10:51 AM
== END | disposition home or self-care (01) ==
LOC: RADMRIMAIN 07:29
PROVIDERS: ATTEND Urology
DX: N40.0 Benign prostatic hyperplasia without lower urinary tract symptoms (principal); R97.20 Elevated prostate specific antigen [PSA]; K40.90 Unilateral inguinal hernia, without obstruction or gangrene, not specified as recurrent
CPT/HCPCS: 72197; A9585

== ENCOUNTER → 2024-08-25 | Outpatient (CLI) | payer MEDICARE | END | disposition home or self-care (01) | LOC: LABWHC1 12:44 | PROVIDERS: ATTEND Urology | DX: R97.20 Elevated prostate specific antigen [PSA] (principal) | CPT/HCPCS: 36415; 84153 ==

== ENCOUNTER → 2024-08-28 | Outpatient (CLI) | payer MEDICARE ==
--- NOTE | 2024-08-30 08:08 | PE ---
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 Images are reviewed on the computer in the coronal, axi al, and sagittal planes. Reconstructed rotating images are created on independent workstation and re viewed on the computer. A non-contrast CT is performed in conjunction with the PET scan. Glucose le aurea 113 mg/dL CT DLP: 935 mGycm, Automated exposure control for dose reduction was used. COMPARISON: CT 01/31/2021, PET/CT None, MRI: 04/03/2024, bone survey radiographs 07/24/2021, nuclear me dicine bone scan 01/04/2021 FINDINGS: Mediastinal SUV mean is 2.3. Hepatic parenchyma SUV mean is 2.8. SKULL BASE AND NECK: No suspicious radiotracer activity. CHEST, MEDIASTINUM, AND HILAR REGION: No suspicious radiotracer activity. ABDOMEN AND PELVIS: No suspicious radiotracer activity. MUSCULOSKELETAL STRUCTURES: No suspicious radiotracer activity. OTHER CT: Moderate coronary arterial calcifications. Mild centrilobular emphysematous changes. Scatte red atelectatic reticular changes. Cholelithiasis. Postsurgical changes within the retroperitoneum wi th surgical clips. Distal colonic diverticulosis without evidence for acute diverticulitis. Prostatom egaly measuring up to 5.6 cm in transverse dimension with central coarse calcifications. Multilevel d egenerative changes of the spine with vertebral augmentation changes of the thoracolumbar spine. Diff use bone demineralization. IMPRESSION: No suspicious radiotracer activity. [facility], , 08/30/2024 8:06 AM
== END | disposition home or self-care (01) ==
LOC: RADPETMAIN 10:51
PROVIDERS: ATTEND Internal Medicine Geriatric Medicine
DX: C41.9 Malignant neoplasm of bone and articular cartilage, unspecified (principal)
CPT/HCPCS: 78815; A9552